=== PATIENT | female | born 1940 | race Caucasian/White ===

== ENCOUNTER → 2022-02-18 13:04 | Outpatient (CLI) | payer MEDICARE, BC, SELFPAY ==
--- NOTE | 2022-02-18 | DI.CT.S_ITS ---
PROCEDURE: CT CHEST WO CON INDICATIONS: Pulmonary fibrosis, unspecified TECHNIQUE: Noncontrast 5 mm thick sections acquired from the pulmonary apices to the posterior costophrenic angles. 1 mm lung window, 5 mm thick coronal and sagittal and 7 mm axial MIP reformats were then acquired. For radiation dose reduction, the following was used: automated exposure control, adjustment of mA and/or kV according to patient size. COMPARISON: None. FINDINGS: Image quality: Excellent. Lungs and pleura: Pulmonary hyperinflation as well as subpleural peripheral honeycombing involving both lungs is consistent with pulmonary fibrosis. Small underlying nodule in the left periphery of the left upper lobe measures 1 cm no on image 3/135. Bilateral apically scarring is greater on the right. Mediastinum: Heart size is normal. No pericardial effusion. No mediastinal adenopathy by size criteria. Thoracic aorta and central pulmonary arteries are normal in size. Esophagus is normal in caliber. Moderate hiatal hernia. Bones and chest wall: No suspicious bony lesions. No vertebral body compression fractures. No axillary or supraclavicular adenopathy by size criteria. Thyroid gland unremarkable. Bilateral breast prosthesis with capsular rupture on the right . Abdomen: Visualized upper abdominal solid organs and bowel loops appear normal in the absence of contrast. IMPRESSION: 1. Peripheral pleural based honeycombing scattered throughout both lungs consistent with non-specific pulmonary fibrosis 2. Associated 1 cm nodule in the periphery of the left upper lobe. Consider 3 month follow-up to assess stability 3. Bilateral breast prosthesis with contained capsular rupture on the right Approved by: Ziggy Manriquez M.D. on 02/18/2022 at 15:51
== END ==
PROVIDERS: PCP Internal Medicine; Referring Provider Internal Medicine; Visit Provider Internal Medicine
DX: J84.10 Pulmonary fibrosis, unspecified (principal); R91.1 Solitary pulmonary nodule; T85.43XA Leakage of breast prosthesis and implant, initial encounter
CPT/HCPCS: 71250

== ENCOUNTER → 2023-04-09 10:34 | Outpatient (CLI) | payer MEDICARE, BC, SELFPAY ==
--- NOTE | 2023-04-09 10:38 | DI.CT.S_ITS ---
PROCEDURE: CT CHEST HIGH RESOLUTION INDICATIONS: Interstitial pulmonary disease, unspecified TECHNIQUE: Noncontrast 1.0 and 5.0 mm thick contiguous axial sections from the pulmonary apex to the posterior costophrenic angles, with 7 mm thick coronal and sagittal MIP reformats. 1 mm thick dynamic expiratory images acquired through the upper, mid, and lower lungs. 1.0 mm thick axial sections acquired from the ashish to the posterior costophrenic angles in the prone end-inspiration position. For radiation dose reduction, the following was used: automated exposure control, adjustment of mA and/or kV according to patient size. COMPARISON: [facility], CT, CT CHEST WO CON, 02/18/2022, 13:11. FINDINGS: Image quality: Excellent. Lungs: Bilateral peripheral reticular thickening which persists on the prone sequence. This is similar to 02/18/2022. Slight increased opacity in the left upper lobe juxta fissural. There is honeycombing. Bilateral pleural apical scarring. Diffuse interlobular septal thickening with a basilar predominance. Mild bronchiectasis. A few areas of distal mucus airway plugging. Central airways are clear. Patchy areas of air trapping. -Left apical nodule measuring 0.4 cm, (3/42), unchanged. -Left upper lobe lateral nodular opacity, (3/143), increased and more consolidative appearing. Pleura: No pleural effusions or pneumothorax. Mediastinum: Heart size is normal. No pericardial effusion. 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 Esophagus is normal in caliber. Small hiatal hernia. Bones and chest wall: No suspicious bony lesions. No vertebral body compression fractures. Bilateral breast implants. The right implant demonstrates at least intracapsular rupture. Abdomen: Visualized upper abdominal solid organs and bowel loops appear normal. 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 Moderate severity. Overall findings are similar compared to January 2022. Previously seen left upper lobe pulmonary nodule is obscured by mild increased opacity. Dictated by: Demar Pulido M.D. on 04/09/2023 at 12:16 Approved by: Demar Pulido M.D. on 04/09/2023 at 12:30
== END ==
PROVIDERS: PCP Internal Medicine; Referring Provider Internal Medicine; Visit Provider Internal Medicine
DX: J84.9 Interstitial pulmonary disease, unspecified (principal); I71.21 Aneurysm of the ascending aorta, without rupture; R91.8 Other nonspecific abnormal finding of lung field; K44.9 Diaphragmatic hernia without obstruction or gangrene; T85.43XA Leakage of breast prosthesis and implant, initial encounter
CPT/HCPCS: 71250

== ENCOUNTER 2023-07-15 13:50 | Observation (INO) | payer MEDICARE, OTHER, SELFPAY ==
[2023-07-15] VITALS (10 sets, daily range): BP systolic 133–171; BP diastolic 72–101; PULSE 73–80; RESP 13–24; TEMP 36.6–37.1; O2SAT 96–100; BMI 22.1; BMI 22.4
--- NOTE | 2023-07-15 14:27 | DI.CT.S_ITS ---
PROCEDURE: CT STROKE INDICATIONS: Vision loss TECHNIQUE: Noncontrast 4.5 mm thick angled axial sections acquired from the foramen magnum to the vertex, with coronal reformats. For radiation dose reduction, the following was used: automated exposure control, adjustment of mA and/or kV according to patient size. COMPARISON: [facility], CT, CT ANGIO HEAD AND NECK, 07/15/2023, 14:30. FINDINGS: Image quality: Excellent. CSF spaces: Basal cisterns are patent. No extra-axial fluid collections. The ventricles are symmetric in size and shape. Brain: No intracranial bleeds or masses. There is cerebral volume loss for age, with resultant ventricular and sulcal prominence. There are periventricular and deep white matter chronic small vessel ischemic changes. There is intracranial internal carotid artery atherosclerosis. Skull and face: Calvarium and visualized facial bones appear intact, without suspicious lesions. Sinuses: Visualized sinuses and mastoids are clear. IMPRESSION: 1. No acute intracranial abnormality. 2. Cerebral volume loss and small vessel ischemic changes. Findings were discussed with Dr. Morales in the emergency department at 14:55 This study fulfills neurological imaging criteria for inclusion or exclusion of acute stroke therapies based on available published neurological guidelines. Dictated by: Angel Brown M.D. on 07/15/2023 at 14:46 Approved by: Angel Brown M.D. on 07/15/2023 at 14:56
--- NOTE | 2023-07-15 14:28 | DI.CT.S_ITS ---
PROCEDURE: CT ANGIO HEAD AND NECK INDICATIONS: Vision loss TECHNIQUE: After the administration of intravenous contrast, 1 mm thick sections acquired from the aortic arch through the [place] of [place]. 3-dimensional eldygzy-ykbyjkekv-bosqlxgndr (MIP) and/or volume rendering reformats were acquired of the central intracranial vasculature and neck separately. For radiation dose reduction, the following was used: automated exposure control, adjustment of mA and/or kV according to patient size. COMPARISON: [facility], CT, CT CHEST HIGH RESOLUTION, 04/09/2023, 10:48. FINDINGS: Image quality: Diagnostic. BRAIN: CSF spaces: Ventricles are normal in size and shape. Basal cisterns are patent. No extra-axial fluid collections. Brain: No significant abnormality of the brain can be seen. Skull and face: Calvarium and facial bones appear intact, without suspicious lesions. Orbits appear normal. Sinuses: Sinuses and mastoids are clear. HEAD CT ANGIOGRAPHY: Anterior circulation: Intracranial internal carotid arteries are normal in size and flow. The flow within the paired anterior cerebral arteries is normal and symmetric. The flow within the middle cerebral arteries is normal and symmetric. The anterior communicating artery is seen. No aneurysms are seen. Posterior circulation: Visualized portions of the vertebral arteries demonstrate normal caliber, and join to form a normal appearing basilar artery. Flow within the posterior cerebral arteries is normal and symmetric. No aneurysms are seen. NECK CT ANGIOGRAPHY: Carotid system: The great vessels demonstrate a conventional anatomy as they arise from the aortic arch. The origins of the common carotid arteries appear patent. The left common carotid artery has atherosclerotic calcifications which do not cause stenosis. The common carotid arteries demonstrate normal caliber and courses. The bifurcation regions are both widely patent. The internal carotid arteries demonstrate normal calibers and courses. Posterior circulation: The origins of the vertebral arteries both appear widely patent. The more superior extracranial portions of both vertebral arteries also demonstrate normal courses and calibers. They join to form a normal appearing basilar artery. Soft tissues: Visualized neck soft tissues demonstrate no suspicious abnormalities. The superior lungs demonstrate peripheral reticular thickening and scarring, similar to prior CT on 04/09/2023. Bones: No suspicious bony lesions. Visualized cervical spine appears normally aligned. IMPRESSION: CT angiogram of the head and neck show no aneurysm, dissection, or stenosis. Any quantitative measurements of stenosis were performed using NASCET criteria. Dictated by: Angel Brown M.D. on 07/15/2023 at 14:56 Approved by: Angel Brown M.D. on 07/15/2023 at 14:59
--- NOTE | 2023-07-15 14:31 | ED_ITS ---
HPI - Neuro Symptoms/Deficit General Chief Complaint: Neuro Symptoms/Deficit Stated Complaint: eye DR merari sudden blurring/ HX TIA Time Seen by Provider: 07/15/23 14:12 Source: patient Mode of arrival: Ambulatory History of Present Illness HPI Narrative: Patient here with complaints at 1:00 a.m. this afternoon had sudden onset of vision loss in both eyes the upper half of her vision. It lasted for 15 minutes and then it resolved. No other complaints. No headache. No numbness tingling or weakness. No slurred speech or facial droop. Patient has no symptoms now. She did call the ophthalmology office and was instructed to come here. She has appointment September with Dr. Asher, it isn't new office appointment. She states she had made the appointment just to get her eyes checked before today. This was a scheduled appointment. Fast exam is negative Patient states in 2019 she had blurry vision for a day. The following day she had a TIA with left arm weakness that resolved. This occurred when she was in [place] On Anticoagulants: No Related Data Home Medications Medication Instructions Recorded Confirmed acetaminophen 325 mg capsule 325 mg PO Q4-6H PRN Pain (Scale 08/18/21 07/15/23 (Tylenol) Score 1-3) aspirin 81 mg chewable tablet 81 mg PO DAILY 08/18/21 07/15/23 atorvastatin 40 mg tablet 40 mg PO BEDTIME 08/18/21 07/15/23 Previous Rx's Medication Instructions Recorded clopidogrel 75 mg tablet 75 mg PO DAILY #21 tabs 07/16/23 Allergies Allergy/AdvReac Type Severity Reaction Status Date / Time No Known Drug Allergies Allergy Verified 07/15/23 14:01 Review of Systems Review of Systems Narrative: GENERAL: negative chills, fatigue, malaise, fever, sweats. HEENT: negative sinus pain, ear pain, sore throat RESPIRATORY: negative dyspnea, cough CARDIOVASCULAR: negative chest pain, palpitations GASTROINTESTINAL: negative nausea, vomiting, abdominal pain : negative dysuria, frequency, hematuria MUSCULOSKELETAL: negative muscle or bony pain SKIN: negative rash, skin lesions NEUROLOGIC: negative weakness, numbness, positive vision loss ROS Unobtainable: All systems reviewed & are unremarkable except as noted in HPI and below Hematologic/Lymphatic On Anticoagulants: No Patient History Social History household members: spouse Smoking Status: Never smoker alcohol intake: current Smoking Status: Never smoker alcohol intake frequency: 0-2 drinks per day Substance Use Type: does not use Exam Narrative Exam Narrative: GENERAL: in no distress, not toxic not dyspneic HEAD: Normocephalic. EYES: Pupils equal round, peripheral do intact bilaterally, isolate each eye. Patient denies any double vision or blurry vision at this time. No papilledema. No photophobia. EOMI, denies any visual field loss/blindness ENT: Mucous membranes moist. NECK: Trachea midline. CARDIOVASCULAR: Regular rate and rhythm RESPIRATORY: Clear to auscultation. Breath sounds equal bilaterally. No wheezes, rales, or rhonchi. GASTROINTESTINAL: Abdomen soft, non-tender EXTREMITIES: No gross deformities. BACK: No flank tenderness. NEURO: AOx4. Fast exam is negative. Clear speech no facial droop light touch intact bilateral face hands and legs. Strong equal light bulb replacer. Raises each leg individually. Finger-nose intact bilaterally. SKIN: Warm and dry PSYCH: Not anxious, is cooperative Initial Vital Signs Initial Vital Signs: Vital Signs Pulse Rate 77 07/15/23 13:55 Blood Pressure 161/74 H 07/15/23 13:55 Pulse Oximetry 96 07/15/23 13:55 Oxygen Delivery Method Room Air 07/15/23 13:55 Course Orders Ordered: Discontinued Medications Acetaminophen (Acetaminophen 325 Mg Tablet) 650 mg PO Q6H PRN PRN Reason: Fever/Mild Pain (1-3) Aspirin (Aspirin Ec 81 Mg Tablet) 81 mg PO DAILY [facility] Last Admin: 07/16/23 08:31 Dose: 81 mg Documented By: JUAN JOSE Admin: 07/15/23 17:43 Dose: 81 mg Documented By: YG Atorvastatin Calcium (Atorvastatin 20 Mg Tablet) 40 mg PO BEDTIME [facility] Atorvastatin Calcium (Atorvastatin 20 Mg Tablet) 80 mg PO BEDTIME [facility] Last Admin: 07/15/23 21:16 Dose: 80 mg Documented By: BRAIN Clopidogrel Bisulfate (Clopidogrel 75 Mg Tablet) 75 mg PO DAILY [facility] Last Admin: 07/16/23 12:02 Dose: 75 mg Documented By: MM Enoxaparin Sodium (Enoxaparin 40 Mg/0.4 Ml Syringe) 40 mg SUBCUT DAILY [facility] Last Admin: 07/16/23 08:31 Dose: 40 mg Documented By: JUAN JOSE Admin: 07/15/23 17:42 Dose: Not Given Documented By: SB Sodium Chloride (Normal Saline 0.9%) 1,000 mls @ 1,000 mls/hr IV BOLUS ONE Stop: 07/15/23 15:26 Last Admin: 07/15/23 15:07 Dose: 1,000 mls/hr Documented By: STORM Labetalol HCl (Labetalol 20 Mg/4 Ml Syringe) 10 mg IV Q5MIN PRN PRN Reason: SBP >220 or DBP >110 Levothyroxine Sodium (Levothyroxine 50 Mcg Tablet) 50 mcg PO 0600 [facility] Last Admin: 07/16/23 05:04 Dose: Not Given Documented By: SH Loratadine (Loratadine 10 Mg Tablet) 10 mg PO DAILY [facility] Last Admin: 07/16/23 08:31 Dose: Not Given Documented By: MM Naloxone HCl (Naloxone 0.4 Mg/Ml Vial) 0.2 mg IV Q2MIN PRN PRN Reason: Opiate Reversal Ondansetron HCl (Ondansetron 4 Mg/2 Ml Inj) 4 mg IV Q8HR PRN PRN Reason: Nausea And Vomiting Vital Signs Vital signs: Vital Signs - 8 hr 07/15/23 13:59 Temperature 98.7 F Pulse Rate 73 Respiratory Rate 16 Blood Pressure 161/74 H Pulse Oximetry 98 Oxygen Delivery Method Room Air MDM - Neuro Symptoms/Deficit Lab Data 07/15/23 14:08 07/15/23 14:08 Labs: Lab Results 07/15/23 07/15/23 07/15/23 Range/Units 14:08 14:08 14:08 WBC 6.7 (4.5-11.0) X10^3/uL RBC 4.44 (4.0-5.2) X10^6/uL Hgb 13.5 (12.0-16.0) g/dL Hct 39.9 (36-46) % MCV 89.9 (80-100) fL MCH 30.4 (26-34) PG MCHC 33.8 (30-36) % RDW 13.6 (11.6-14.8) % Plt Count 224 (150-400) X10^3/uL Neut % (Auto) 71.5 (50-75) % Lymph % (Auto) 16.5 L (25-40) % [place] % (Auto) 7.7 (3-14) % Eos % (Auto) 3.9 (2-4) % Baso % (Auto) 0.4 (0-2) % Neut # (Auto) 4800 (6699-3522) /uL Lymph # (Auto) 1100 (7931-3728) /uL [place] # (Auto) 500 (0-900) /uL Eos # (Auto) 300 (0-450) /uL Baso # (Auto) 0 (0-100) /uL PT 12.3 (10.1-12.7) SECONDS INR 1.1 (0.9-1.3) APTT 32 (26-36) SECONDS Sodium 139 (137-145) mmol/L Potassium 4.1 (3.4-5.1) mmol/L Chloride 103 (98-107) mmol/L Carbon Dioxide 28 (22-32) mmol/L BUN 15 (7-17) mg/dL Creatinine 0.69 (0.52-1.04) mg/dL Estimated GFR > 60 (>60) mL/min BUN/Creatinine Ratio 21.7 (6-22) Glucose 101 (80-110) mg/dL Hemoglobin A1c (4.0-6.0) % Calcium 9.1 (8.4-10.2) mg/dL Total Bilirubin 0.4 (0.2-1.3) mg/dL AST 30 (14-36) IU/L ALT 25 (<35) IU/L Alkaline Phosphatase 46 (38-126) U/L Total Creatine Kinase 242 H (30-135) U/L Troponin I < 0.012 (0.01-0.034) ng/mL Total Protein 7.2 (6.3-8.2) g/dL Albumin 4.2 (3.5-5.0) g/dL Globulin 3.0 (1.7-4.1) g/dL Albumin/Globulin Ratio 1.4 (1.0-2.8) Triglycerides (35-150) mg/dL Cholesterol (140-199) mg/dL LDL Cholesterol, Calc (<100) mg/dL HDL Cholesterol (40-60) mg/dL 07/15/23 07/15/23 Range/Units 14:08 14:08 WBC (4.5-11.0) X10^3/uL RBC (4.0-5.2) X10^6/uL Hgb (12.0-16.0) g/dL Hct (36-46) % MCV (80-100) fL MCH (26-34) PG MCHC (30-36) % RDW (11.6-14.8) % Plt Count (150-400) X10^3/uL Neut % (Auto) (50-75) % Lymph % (Auto) (25-40) % [place] % (Auto) (3-14) % Eos % (Auto) (2-4) % Baso % (Auto) (0-2) % Neut # (Auto) (9304-4638) /uL Lymph # (Auto) (4149-2761) /uL [place] # (Auto) (0-900) /uL Eos # (Auto) (0-450) /uL Baso # (Auto) (0-100) /uL PT (10.1-12.7) SECONDS INR (0.9-1.3) APTT (26-36) SECONDS Sodium (137-145) mmol/L Potassium (3.4-5.1) mmol/L Chloride (98-107) mmol/L Carbon Dioxide (22-32) mmol/L BUN (7-17) mg/dL Creatinine (0.52-1.04) mg/dL Estimated GFR (>60) mL/min BUN/Creatinine Ratio (6-22) Glucose (80-110) mg/dL Hemoglobin A1c 5.3 (4.0-6.0) % Calcium (8.4-10.2) mg/dL Total Bilirubin (0.2-1.3) mg/dL AST (14-36) IU/L ALT (<35) IU/L Alkaline Phosphatase (38-126) U/L Total Creatine Kinase (30-135) U/L Troponin I (0.01-0.034) ng/mL Total Protein (6.3-8.2) g/dL Albumin (3.5-5.0) g/dL Globulin (1.7-4.1) g/dL Albumin/Globulin Ratio (1.0-2.8) Triglycerides 77 (35-150) mg/dL Cholesterol 139 L (140-199) mg/dL LDL Cholesterol, Calc 42 (<100) mg/dL HDL Cholesterol 82 H (40-60) mg/dL Imaging Data CT scan - head: Radiologist's Impression: [address] [address] [address] Scan Report Signed Patient: Zayra Escamilla MR#: [id number] : 1940 Acct:[id number] Age/Sex: 82 / F Date of Service: 07/15/23 Loc: ED Accession Number: [id number] ?? Procedure: CT Stroke Ordering Provider: Brenden Morales MD PROCEDURE:? CT STROKE ? INDICATIONS:? Vision loss ? TECHNIQUE:? Noncontrast 4.5 mm thick angled axial sections acquired from the foramen magnum to the vertex, with coronal reformats.? For radiation dose reduction, the following was used:? automated exposure control, adjustment of mA and/or kV according to patient size.? ? COMPARISON:? [facility], CT, CT ANGIO HEAD AND NECK, 07/15/2023, 14:30. ? FINDINGS:? Image quality:? Excellent.? ? CSF spaces:? Basal cisterns are patent.? No extra-axial fluid collections.? The ventricles are symmetric in size and shape.? ? Brain:? No intracranial bleeds or masses.? There is cerebral volume loss for age, with resultant ventricular and sulcal prominence.? There are periventricular and deep white matter chronic small vessel ischemic changes.? There is intracranial internal carotid artery atherosclerosis.? ? Skull and face:? Calvarium and visualized facial bones appear intact, without suspicious lesions.? ? Sinuses:? Visualized sinuses and mastoids are clear.? ? IMPRESSION:? 1. No acute intracranial abnormality. 2. Cerebral volume loss and small vessel ischemic changes.? Findings were discussed with Dr. Morales in the emergency department at 14:55? ? This study fulfills neurological imaging criteria for inclusion or exclusion of acute stroke therapies based on available published neurological guidelines.? ? ? Dictated by: Angel Brown M.D. on 07/15/2023 at 14:46 ? ? Approved by: Angel Brown M.D. on 07/15/2023 at 14:56 ? CTA - brain/neck: Radiologist's Impression: [address] [address] [address] Scan Report Signed Patient: Zayra Escamilla MR#: [id number] : 1940 Acct:[id number] Age/Sex: 82 / F Date of Service: 07/15/23 Loc: ED Accession Number: [id number] ?? Procedure: CT angio head and neck Ordering Provider: Brenden Morales MD PROCEDURE:? CT ANGIO HEAD AND NECK ? INDICATIONS:? Vision loss ? TECHNIQUE:? After the administration of intravenous contrast, 1 mm thick sections acquired from the aortic arch through the [place].? 3-dimensional zehwlan-aqdsmwzik-ppabslqjhg (MIP) and/or volume rendering reformats were acquired of the central intracranial vasculature and neck separately. For radiation dose reduction, the following was used:? automated exposure control, adjustment of mA and/or kV according to patient size.? ? COMPARISON:? [facility], CT, CT CHEST HIGH RESOLUTION, 04/09/2023, 10:48. ? FINDINGS:? Image quality:? Diagnostic.? ? BRAIN:? CSF spaces:? Ventricles are normal in size and shape.? Basal cisterns are patent.? No extra-axial fluid collections.? ? Brain:? No significant abnormality of the brain can be seen. ? ? ? Skull and face:? Calvarium and facial bones appear intact, without suspicious lesions.? Orbits appear normal.? ? Sinuses:? Sinuses and mastoids are clear.? ? HEAD CT ANGIOGRAPHY:? Anterior circulation:? Intracranial internal carotid arteries are normal in size and flow.? The flow within the paired anterior cerebral arteries is normal and symmetric.? The flow within the middle cerebral arteries is normal and symmetric.? The anterior communicating artery is seen.? No aneurysms are seen.? ? Posterior circulation:? Visualized portions of the vertebral arteries demonstr ate normal caliber, and join to form a normal appearing basilar artery.? Flow within the posterior cerebral arteries is normal and symmetric.? No aneurysms are seen.? ? NECK CT ANGIOGRAPHY:? Carotid system:? The great vessels demonstrate a conventional anatomy as they arise from the aortic arch.? The origins of the common carotid arteries appear patent.? The left common carotid artery has atherosclerotic calcifications which do not cause stenosis.? The common carotid arteries demonstrate normal caliber and courses.? The bifurcation regions are both widely patent.? The internal carotid arteries demonstrate normal calibers and courses.? ? Posterior circulation:? The origins of the vertebral arteries both appear widely patent.? The more superior extracranial portions of both vertebral arteries also demonstrate normal courses and calibers.? They join to form a normal appearing basilar artery.? ? Soft tissues:? Visualized neck soft tissues demonstrate no suspicious abnormalities.? The superior lungs demonstrate peripheral reticular thickening and scarring, similar to prior CT on 04/09/2023. ? Bones:? No suspicious bony lesions.? Visualized cervical spine appears normally aligned.? IMPRESSION:? CT angiogram of the head and neck show no aneurysm, dissection, or stenosis. ? Any quantitative measurements of stenosis were performed using NASCET criteria.? ? ? Dictated by: Angel Brown M.D. on 07/15/2023 at 14:56 ? ? Approved by: Angel Brown M.D. on 07/15/2023 at 14:59 ? MDM Narrative Medical decision making narrative: Patient here with complaints at 1:00 a.m. this afternoon had sudden o nset of vision loss in both eyes the upper half of her vision. It lasted for 15 minutes and then it resolved. No other complaints. No headache. No numbness tingling or weakness. No slurred speech or facial droop. Patient has no symptoms now. She did call the ophthalmology office and was instructed to come here. She has appointment September with Dr. Asher, it isn't new office appointment. She states she had made the appointment just to get her eyes checked before today. This was a scheduled appointment. Fast exam is negative. Patient states in 2019 she had blurry vision for a day. The following day she had a TIA with left arm weakness that resolved. This occurred when she was in [place] After history and exam code stroke activated. CT head CT angiogram head and neck EKG troponin CBC CMP normal saline MDM CC: Vision loss Complicating co-morbidities: History of TIA Data collected from: Patient and Medical records reviewed: No recent visit for this complaint Differential considered: Includes but not limited to retinal detachment TIA stroke retinal detachment, arterial/venous occlusion of the retina Exam documented above, pertinent findings include: No blurry vision or double vision or vision loss at this time Lab Test results independently reviewed as above. Pertinent findings: WBC 6.7 hemoglobin 13.5 sodium 139 potassium 4.1 BUN 15 creatinine 0.69 glucose 101 Independently reviewed EKG normal sinus rhythm rate [address] elevation or de pression Imaging studies independently reviewed: CT head CT angiogram head and neck no acute finding Consultations: 2:53 p.m.. Radiology provider called, negative CT head negative CT angiogram head and neck 3:[address] Deleon, hospitalist, he will see patient for admission Treatments: Normal saline Re-evaluations: 3:15 p.m.. Reviewed results with patient. At this time it is reassuring. However TIA is possible. Agrees for admission for observation. Awaiting for MRI Discussion: Appropriate for admission. Patient had similar event for TIA 3 years ago with vision changes and then left arm weakness. No symptoms at this time. Patient and agree for admission. Reviewed with hospitalist agree for admit. No neurology consult at this time as symptoms have resolved. Diagnosis: TIA Discharge Plan Departure Patient Disposition: Admitted as Observation Clinical Impression: Transient cerebral ischemia Admit Date/Time: 07/15/23 15:22 Admit Provider: Jhonny Deleon
[2023-07-15 14:40] LABS: Add Manual Diff / Slide Review NO; Basophils Absolute Auto 0 /uL (0-100); Basophils Percent Auto 0.4 % (0-2); Eosinophils Absolute Auto 300 /uL (0-450); Eosinophils Percent Auto 3.9 % (2-4); Hematocrit 39.9 % (36-46); Hemoglobin 13.5 g/dL (12.0-16.0); Lymphocytes Absolute Auto 1100 /uL (1100-4500); Lymphocytes Percent Auto 16.5 % (25-40); Mean Corpuscular HGB Conc 33.8 % (30-36); Mean Corpuscular Hemoglobin 30.4 PG (26-34); Mean Corpuscular Volume 89.9 fL (80-100); Monocytes Absolute Auto 500 /uL (0-900); Monocytes Percent Auto 7.7 % (3-14); Neutrophils Absolute Auto 4800 /uL (1500-7000); Neutrophils Percent Auto 71.5 % (50-75); Platelet Count 224 X10^3/uL (150-400); Red Blood Cell Count 4.44 X10^6/uL (4.0-5.2); Red Cell Distribution Width 13.6 % (11.6-14.8); White Blood Cell Count 6.7 X10^3/uL (4.5-11.0)
[2023-07-15 14:44] LABS: INR 1.1 (0.9-1.3); Prothrombin Time 12.3 SECONDS (10.1-12.7)
[2023-07-15 14:47] LABS: PTT Partial Thromboplastin Tim 32 SECONDS (26-36)
[2023-07-15 14:48] LABS: Alanine Aminotransferase 25 IU/L (<35); Albumin 4.2 g/dL (3.5-5.0); Albumin Globulin Ratio 1.4 (1.0-2.8); Alkaline Phosphatase 46 U/L (38-126); Aspartate Aminotransferase 30 IU/L (14-36); BUN Creatinine Ratio 21.7 (6-22); Bilirubin Total 0.4 mg/dL (0.2-1.3); Blood Urea Nitrogen 15 mg/dL (7-17); Calcium 9.1 mg/dL (8.4-10.2); Carbon Dioxide 28 mmol/L (22-32); Chloride 103 mmol/L (98-107); Creatine Kinase 242 U/L (30-135); Estimated Glomerular Filt Rate > 60 mL/min (>60); Glucose 101 mg/dL (80-110); HEMOLYSIS < 15 (0-50); Potassium 4.1 mmol/L (3.4-5.1); Sodium 139 mmol/L (137-145); Total Protein 7.2 g/dL (6.3-8.2)
[2023-07-15 15:00] LABS: Troponin I < 0.012 ng/mL (0.01-0.034)
[2023-07-15] MEDS: SODIUM CHLORIDE 0.9% 1,000 ML 1000 ML IV (15:07)
--- NOTE | 2023-07-15 15:13 | DI.MRI.S_ITS ---
PROCEDURE: MR HEAD/BRAIN WO CON INDICATIONS: Vision loss TECHNIQUE: Non-contrast axial T1 spin echo, axial T2 fast spin echo, sagittal and axial FLAIR, coronal T2 fast spin echo, axial gradient echo, axial diffusion and ADC through the brain. COMPARISON: None. FINDINGS: Image quality: Excellent. CSF spaces: Ventricles appear symmetric in size and shape. Basal cisterns are patent. No extra-axial fluid collections. Brain: No intracranial bleeds or mass effects. There is cerebral volume loss for age. There are periventricular and deep white matter chronic small vessel ischemic changes. Brainstem appears normal. Diffusion-weighted images show no acute ischemic insults. No chronic ischemic insults. Normal intravascular flow voids are present. Few rachel foci of susceptibility artifact within the right parenchyma, likely sequela of prior chronic hypertensive microhemorrhages. Skull and face: Calvarial bone marrow is normal in signal. Orbits are normal. Right lens replacement. Sinuses: Sinuses and mastoids are clear. IMPRESSION: 1. No acute or subacute infarct. No acute intracranial abnormalities. 2. Age-related global volume loss and chronic microvascular ischemic changes. Dictated by: Trey Moore M.D. on 07/15/2023 at 16:54 Approved by: Trey Moore M.D. on 07/15/2023 at 16:56
--- NOTE | 2023-07-15 15:46 | PC.NURSE ---
pt reports that her vision went blurry in both eyes while she was gathering brush from the cedar tree. states it only lasted a few minutes.
--- NOTE | 2023-07-15 15:52 | DI.ECHO.S_ITS ---
[facility]---------+ [facility] +---------+ : : [address] : : : : [id number] : : : : Phone: [phone] Echocardiogram Report + + :Name: ZULEIKA VANEGAS Study Date: 07/16/2023 Height: 66 in : :[facility] ReadingLocation: Weight: 137 lb : : Gender: Female BSA: 1.7 m2 : :: 1940 Age: 82 yrs BP: 171/92 mmHg: :Reason For Study: TIA : :Ordering Physician: TARIK, : :LETTY Moser Performed By: Johanne Bowen : :Referring: LETTY MONTANEZ : + + Interpretation Summary The left ventricle is normal in size. Left ventricular systolic function appears normal without focal wall motion abnormalities. The ejection fraction is estimated to be 60-65%. Diastolic parameters suggest a relaxation abnormality of the left ventricle, consistent with probable normal filling pressures. The right ventricle is normal in size and function. The right ventricular systolic pressure is estimated to be at least 46 mmHg based on an estimated right atrial pressure of 8 mm Hg. The left atrium is mildly dilated. The right atrium is mildly dilated. The aortic root is normal size. Moderate atherosclerotic plaque(s) in the descending aorta. Procedure: A two-dimensional transthoracic echocardiogram with color flow and Doppler was performed. The study quality was technically adequate. There is no prior echocardiogram noted for this patient. The patient was in sinus rhythm with heart rates between 79-90 bpm during the exam. Left Ventricle: The left ventricle is normal in size. Proximal septal thickening is noted. Left ventricular systolic function appears normal without focal wall motion abnormalities. The ejection fraction is estimated to be 60- 65%. Diastolic parameters suggest a relaxation abnormality of the left ventricle, consistent with probable normal filling pressures. Right Ventricle: The right ventricle is normal in size and function. Atria: The left atrium is mildly dilated. The right atrium is mildly dilated. There is no Doppler evidence for an interatrial shunt. Mitral Valve: The mitral valve leaflets appear mildly thickened, but open well. There is mild mitral regurgitation. Aortic Valve: The aortic valve is trileaflet. The aortic valve opens well. There is no aortic valve stenosis. There is trace aortic regurgitation. Tricuspid Valve: The tricuspid valve is normal in structure and function. There is mild tricuspid regurgitation. The right ventricular systolic pressure is estimated to be at least 46 mmHg based on an estimated right atrial pressure of 8 mm Hg. Pulmonic Valve: The pulmonic valve leaflets are thin and pliable; valve motion is normal. There is no pulmonic valvular regurgitation. Great Vessels: The aortic root is normal size. The ascending aorta is mildly enlarged. Moderate atherosclerotic plaque(s) in the descending aorta. The IVC is dilated (diameter is greater than 2.1 cm) yet it collapses greater than 50% with a sniff. This suggests a right atrial pressure of 8 mm Hg. Pericardium/ Pleura There is no pericardial effusion. There is no pleural effusion. MMode/2D Measurements & Calculations LVIDd: 4.2 cm LVOT diam: 2.0 cm LVIDs: 2.7 cm Ao root diam: 3.1 cm FS: 36.0 % asc Aorta Diam: 4.0 cm EPSS: 0.32 cm Ao Arch Diam (Prox Trans): 2.4 cm IVSd: 0.79 cm LVPWd: 0.73 cm LV posadas. diameter/BSA (cm/m^2): 2.5 LV sys. diameter/BSA (cm/m^2): 1.6 LA A2 area: 19.3 cm2 RA long axis: 6.0 cm LA A4 area: 20.6 cm2 RA area: 21.8 cm2 LA length (vol): 5.4 cm RA vol: 67.0 ml LA vol: 62.3 ml RA : 39.3 ml/m2 LA vol index: 36.6 ml/m2 IVC diam: 2.1 cm RVD1 (basal): 3.6 cm RVD2 (mid): 2.6 cm TAPSE: 2.6 cm Doppler Measurements & Calculations Ao V2 max: 148.8 cm/sec LVOT Max Surinder: 104.5 cm/sec Ao V2 mean: 108.8 cm/sec LV V1 max P.4 mmHg Ao max P.9 mmHg LV V1 VTI: 19.9 cm Ao mean P.3 mmHg ALYSSA(I,D): 2.1 cm2 Ao V2 VTI: 29.2 cm ALYSSA(V,D): 2.2 cm2 sev ratio: 0.68 ALYSSA indexed to BSA (cm^2/m^2): 1.3 MV E max surinder: 86.3 cm/sec TR max surinder: 308.0 cm/sec MV A max surinder: 119.0 cm/sec TR max P.9 mmHg MV E/A: 0.73 PA V2 max: 86.9 cm/sec Med Peak E' Surinder: 7.5 cm/sec PA V2 mean: 57.1 cm/sec E/E' med: 11.6 PA mean P.5 mmHg Lat Peak E' Surinder: 8.1 cm/sec PA pr(Accel): 41.7 mmHg E/E' lat: 10.7 E/e' average: 11.2 MV dec time: 0.20 sec SV(LVOT): 62.2 ml Reading Physician:03:39 PM
[2023-07-15] MEDS: ASPIRIN EC 81 MG TABLET PO (17:43)
[2023-07-15 17:54] LABS: Cholesterol 139 mg/dL (140-199); HDL Cholesterol 82 mg/dL (40-60); LDL Cholesterol Calculated 42 mg/dL (<100); Triglycerides 77 mg/dL (35-150)
[2023-07-15 17:56] LABS: Hemoglobin A1C% w Est Avg Glu 5.3 % (4.0-6.0)
--- NOTE | 2023-07-15 19:19 | PM.HP.1 ---
History of Present Illness History of Present Illness Date Patient Seen: 07/15/23 Chief complaint: eye DR merari sudden blurring/ HX TIA Narrative: Zayra Escamilla is an 82yo F with PMH of TIA versus CVA in 2019, seizure in 2004, pulmonary fibrosis and hypothyroidism who presents with sudden vision loss concerning for TIA. Patient states she had acute visual deficits of her upper half visual do bilaterally which lasted 15 minutes then resolved. She called her management trainee who recommended she come to the ED. She was supposed to have her eyes examined soon but they haven't been yet. She reports a previous instance in 2019 while living in [place] when she had vision loss of her left peripheral field and was she had a small stroke seen on MRI, although she called it a TIA. Has been on aspirin and statin since. She is no longer on seizure meds as she had one isolated seizure in 2004. She denies extremity weakness, facial droop, CP, SOB, headache, abd pain or diarrhea. [facility] Social History household members: none Smoking Status: Never smoker alcohol intake: current Meds Home Medications and Allergies Home Medications Medication Instructions Recorded Confirmed Type acetaminophen 325 mg capsule 325 mg PO Q4-6H PRN Pain (Scale 08/18/21 07/15/23 History (Tylenol) Score 1-3) aspirin 81 mg chewable tablet 81 mg PO DAILY 08/18/21 07/15/23 History atorvastatin 40 mg tablet 40 mg PO BEDTIME 08/18/21 07/15/23 History Allergies Allergy/AdvReac Type Severity Reaction Status Date / Time No Known Drug Allergies Allergy Verified 07/15/23 14:01 Review of Systems Review of Systems Narrative: All other systems reviewed with the patient and are negative unless otherwise stated. Exam Vital Signs (past 8 hours): - 07/15/23 13:59 07/15/23 13:55 07/15/23 13:55 Temperature 98.7 F Pulse Rate 73 77 Respiratory Rate 16 Blood Pressure 161/74 H 161/74 H Pulse Oximetry 98 96 Oxygen Delivery Method Room Air Room Air 07/15/23 14:00 07/15/23 14:08 07/15/23 14:08 Temperature Pulse Rate 75 76 Respiratory Rate 24 22 Blood Pressure 152/91 H Pulse Oximetry 100 99 Oxygen Delivery Method 07/15/23 14:39 07/15/23 14:40 07/15/23 15:10 Temperature Pulse Rate 80 79 79 Respiratory Rate 16 13 18 Blood Pressure Pulse Oximetry 98 Oxygen Delivery Method Room Air 07/15/23 15:10 07/15/23 15:30 07/15/23 15:30 Temperature Pulse Rate 76 Respiratory Rate 20 Blood Pressure 150/72 H 163/101 H Pulse Oximetry 98 Oxygen Delivery Method 07/15/23 16:04 07/15/23 16:04 Temperature Pulse Rate 78 Respiratory Rate 18 Blood Pressure 171/92 H Pulse Oximetry 98 Oxygen Delivery Method Room Air Oxygen Delivery Method Room Air Narrative Exam Narrative: GEN: no acute distress, appears younger than stated age HEENT: moist mucous membranes, PERRL NECK: trachea midline, no JVD CV: regular rate and rhythm, no murmurs PULM: clear bilaterally ABD: soft, nontender, nondistended, no organomegaly EXT: warm and well perfused with no edema NEURO: awake, alert, oriented, no focal deficits Objective Labs 07/15/23 14:08 07/15/23 14:08 Labs: Laboratory Results - last 24 hr 07/15/23 07/15/23 07/15/23 14:08 14:08 14:08 WBC 6.7 RBC 4.44 Hgb 13.5 Hct 39.9 MCV 89.9 MCH 30.4 MCHC 33.8 RDW 13.6 Plt Count 224 Neut % (Auto) 71.5 Lymph % (Auto) 16.5 L [place] % (Auto) 7.7 Eos % (Auto) 3.9 Baso % (Auto) 0.4 Neut # (Auto) 4800 Lymph # (Auto) 1100 [place] # (Auto) 500 Eos # (Auto) 300 Baso # (Auto) 0 PT 12.3 INR 1.1 APTT 32 Sodium 139 Potassium 4.1 Chloride 103 Carbon Dioxide 28 BUN 15 Creatinine 0.69 Estimated GFR > 60 BUN/Creatinine Ratio 21.7 Glucose 101 Hemoglobin A1c Calcium 9.1 Total Bilirubin 0.4 AST 30 ALT 25 Alkaline Phosphatase 46 Total Creatine Kinase 242 H Troponin I < 0.012 Total Protein 7.2 Albumin 4.2 Globulin 3.0 Albumin/Globulin Ratio 1.4 Triglycerides Cholesterol LDL Cholesterol, Calc HDL Cholesterol 07/15/23 07/15/23 14:08 14:08 WBC RBC Hgb Hct MCV MCH MCHC RDW Plt Count Neut % (Auto) Lymph % (Auto) Free[place] % (Auto) Eos % (Auto) Baso % (Auto) Neut # (Auto) Lymph # (Auto) Free[place] # (Auto) Eos # (Auto) Baso # (Auto) PT INR APTT Sodium Potassium Chloride Carbon Dioxide BUN Creatinine Estimated GFR BUN/Creatinine Ratio Glucose Hemoglobin A1c 5.3 Calcium Total Bilirubin AST ALT Alkaline Phosphatase Total Creatine Kinase Troponin I Total Protein Albumin Globulin Albumin/Globulin Ratio Triglycerides 77 Cholesterol 139 L LDL Cholesterol, Calc 42 HDL Cholesterol 82 H Assessment & Plan Assessment & Plan narrative: # likely TIA, in the setting of previous TIA in 2019 -presented with bilateral upper field deficits which lasted 15 minutes then resolved -MRI brain normal -echo ordered -continue baby aspirin -continue statin -LDL 42 -A1c 5.3% -tele -should have eyes examined as outpatient by eye doctor # pulmonary fibrosis -followed by pulmonology, not on oxygen # hypothyroidism -continue home Synthroid -check TSH Code status is DNR. DVT prophylaxis with Lovenox. Proxy is daughter Marii. I have reviewed home meds and used all available resources to reconcile the home meds. Case discussed with ED physician/APC and patient will be admitted to the hospitalist service for further workup and management. This patient will be admitted as observation and will require less than 2 midnights of hospital time to treat TIA. Quality VTE Deep Vein Thrombosis/Pulmonary Embolism Present on Admission: No
[2023-07-15] MEDS: ATORVASTATIN 20 MG TABLET 80 MG PO (21:16)
[2023-07-16] VITALS: PULSE 71
[2023-07-16 04:00] VITALS: BP 132/77; PULSE 72; RESP 15; TEMP 36.1; O2SAT 98
[2023-07-16 07:28] LABS: TSH w/ Reflex to FT4 4.42 uIU/mL (0.47-4.68)
[2023-07-16 08:00] VITALS: BP 146/83; PULSE 75; RESP 16; O2SAT 97
[2023-07-16] MEDS: ENOXAPARIN 40 MG/0.4 ML SYRINGE SUBCUT (08:31)
[2023-07-16] MEDS: ASPIRIN EC 81 MG TABLET PO (08:31)
--- NOTE | 2023-07-16 11:01 | CM.DANOTE ---
DCP Assessment Note Patient is a 82yo F here for blurry vision and potential TIA. [facility] and [facility] reviewed EMR. From staff development educator, doing well, wants to go home, and waiting on echo. From provider, likely to d/c today. RIBBON WEAVER entered room and introduced self and role. Patient accompanied by spouse at bed side (Luis [phone]). Patient appeared A/Ox4. Paitent lives with spouse and is normally A/I at baseline. Does not drive but either spouse or daughter Marii ([phone]) transport for her. Plan: no needs identified from this team at this time. Home when medically stable, potentially today. Transport with family in POV. CM team will continue to follow as needed. FAY Kelly Discharge Planning/Care Management CM Discharge Assessment Start: 07/16/23 11:00 Freq: Status: Active Protocol: Document 07/16/23 11:00 (Rec: 07/16/23 11:01 [id number]) Discharge Planning Assessment Assigned Vegetable Worker FAY Carrasco DPOA/Assigned Designee Name Luis (spouse) Contact Information [phone] Advance Directives? No History Provided By Patient,Medical Record Prior Living Arrangements House Household Members spouse Type of transporation used prior to Relies on Others admit Comment spouse and daughter transport Independent with ADL's Yes Is patient alert and oriented? Yes Discharge Plan Home Transportation Arrangement daughter or spouse in POV Whiteboard Updated in Patient Room with Yes name and ext. # of Vegetable Worker Review Status In Process Next Review Type Continued Stay Review
[2023-07-16 12:00] VITALS: BP 141/83; PULSE 78; RESP 16; O2SAT 94
[2023-07-16] MEDS: CLOPIDOGREL 75 MG TABLET PO (12:02)
--- NOTE | 2023-07-17 13:23 | P.DS_ITS ---
History of Present Illness History of Present Illness Date Patient Seen: 07/15/23 Chief complaint: eye DR sent sudden blurring/ HX TIA Narrative: Per admitting provider: Zayra Escamilla is an 82yo F with PMH of TIA versus CVA in 2019, seizure in 2004, pulmonary fibrosis and hypothyroidism who presents with sudden vision loss concerning for TIA. Patient states she had acute visual deficits of her upper half visual do bilaterally which lasted 15 minutes then resolved. She called her cap cutter who recommended she come to the ED. She was supposed to have her eyes examined soon but they haven't been yet. She reports a previous instance in 2019 while living in [place] when she had vision loss of her left peripheral field and was she had a small stroke seen on MRI, although she called it a TIA. Has been on aspirin and statin since. She is no longer on seizure meds as she had one isolated seizure in 2004. She denies extremity weakness, facial droop, CP, SOB, headache, abd pain or diarrhea. Discharge Providers Provider Date of admission: 07/15/23 15:22 Discharge Date: 07/16/23 Primary care physician: Lisbet Newman MD Discharge provider: Darwin Ag MD Summary Hospital Course Discharge Diagnosis: 1. Transient vision loss, possible TIA 2. Pulmonary fibrosis 3. Hypothyroidism Hospital Course: Ms. Escamilla presented to the hospital with transient vision loss. This is similar to a previous episode for which she was diagnosed with a TIA. She was already on aspirin prior to this admission. She had an MRI negative for stroke and an ECHO with no evidence of PFO. CTA head/neck with no significant stenosis. She may have had another TIA so she was prescribed three weeks of plavix to take dual antiplatelet therapy for a short period of time to reduce risk of stroke. She should follow up with her PCP to discuss returning back to antiplatelet monotherapy. In addition a request was made to expedite her ophtho referral so that she could be seen soon. She should consider having a repeat Holter monitor due to intermittent episodes of tachycardia that she has noticed at home. Exam Vital Signs (past 8 hours): Oxygen Delivery Method Room Air Oxygen Flow Rate 0 Narrative Exam Narrative: GEN: no acute distress CV: regular rate and rhythm, no murmurs PULM: clear bilaterally ABD: soft, nontender, nondistended, no organomegaly Objective Labs 07/15/23 14:08 07/15/23 14:08 [facility] Social History household members: spouse Smoking Status: Never smoker alcohol intake: current Discharge Plan Discharge Plan Patient Disposition: Home Provider Discharge Comment: Ms. Escamilla came to the hospital with vision issues. They improved. She may have had a TIA so she is given a prescription for plavix for three weeks. She should follow up with ophthalmology to make sure this is not an eye issue though. She should follow up with her PCP to get a Holter monit or. Discharge orders & Medications Prescriptions: New clopidogrel 75 mg tablet 75 mg PO DAILY Qty: 21 0RF Continued aspirin 81 mg tablet,chewable 81 mg PO DAILY atorvastatin 40 mg tablet 40 mg PO BEDTIME acetaminophen [Tylenol] 325 mg capsule 325 mg PO Q4-6H PRN (Reason: Pain (Scale Score 1-3)) Medication counseling provided by Pharmacist: Yes Follow up/Referrals: Irina Asher MD [Physician] - 2 Weeks (*Dr Jenkins office has been notified & will call you with a sooner appointment date & time was admitted to the hospital with transient vision loss and workup for CVA showed no stroke) Lisbet Newman MD [Primary Care Provider] - 07/20/23 11:00 am ( Appt:07/20 @ 11:[address] candelario please arrive 15 min prior to your scheduled appointment time possible tia, transient vision symptoms, consider outpatient holter monitor) Diet/Activity/Treatments Diet: Regular Visit Report/Discharge Packet Instructions: Clopidogrel Stand Alone Forms: Patient Portal/API, Stroke Signs & Symptoms Discharge Data Primary Care Provider: Lisbet Newman Attending Provider: Jhonny Deleon Admit Date/Time: 07/15/23 15:22 Discharges patient from system. Discharge Date/Time: 07/16/23 16:00 Quality VTE Deep Vein Thrombosis/Pulmonary Embolism Present on Admission: No
== END 2023-07-16 16:00 | disposition home or self-care (01) ==
LOC: ED 14:52 → AC 15:23
PROVIDERS: Admitting Provider Student in an Organized Health Care Education/Training Program; Emergency Provider Emergency Medicine; PCP Internal Medicine; Referring Provider Emergency Medicine; Visit Provider Student in an Organized Health Care Education/Training Program
DX: H53.9 Unspecified visual disturbance (principal); Z86.73 Personal history of transient ischemic attack (TIA), and cerebral infarction without residual deficits; J84.10 Pulmonary fibrosis, unspecified; E03.9 Hypothyroidism, unspecified
CPT/HCPCS: 36415; 70450; 70496; 70498; 70551; 80053; 80061; 82550; 83036; 84443; 84484; 85025; 85610; 85730; 93005; 93010; 93306; 96372; 99284; 99285; G0378; J1650; Q9967

== ENCOUNTER → 2023-09-08 11:10 | Outpatient (CLI) | payer MEDICARE, OTHER, SELFPAY ==
[2023-07-15 16:42] VITALS: BMI 22.4
--- NOTE | 2023-09-08 11:11 | DI.RAD.S_ITS ---
Bone Density Report Name: ZULEIKA VANEGAS Age: 83 Sex: Female Ethnicity: White Date of : 1940 Indication: postmenopausal; screening for osteoporosis; Referring Provider: NICKY SOLOMON Study: Bone densitometry was performed. Exam Date: September 08, 2023 Accession number: [id number] Bone Density: Region BMD T-score Z-score Classification AP Spine(L2, L3, L4) 0.724 -3.2 -0.4 Osteoporosis Femoral Neck (Left) 0.577 -2.5 -0.1 Osteoporosis Total Hip (Left) 0.658 -2.3 -0.2 Osteopenia Femoral Neck (Right) 0.617 -2.1 0.3 Osteopenia Total Hip (Right) 0.642 -2.5 -0.3 Osteoporosis Total Hip Mean 0.650 -2.4 -0.3 Osteopenia World Health Organization criteria for BMD impression classify patients as: Normal (T-score at or above -1.0), Osteopenia (T-score between -1.0 and -2.5), or Osteoporosis (T-score at or below -2.5). 10-year Fracture Risk: FRAX not reported because: Some T-score for Spine Total or Hip Total or Femoral Neck at or below -2.5 Impression: The patient has osteoporosis, based on the Total Spine T-score. Discussion: INCREASED RISK OF FRACTURE. BONE DENSITY IS UNDESIRABLY LOW AT ONE OR MORE SKELETAL SITES, CONSISTENT WITH POSTMENOPAUSAL OSTEOPOROSIS. This patient's lowest T-score meets the World Health Organization's (WHO) criteria for osteoporosis at one or more sites (T-score -2.5 or below). In untreated patients, the risk of osteoporotic fracture increases approximately two-fold for each 1.0 SD decrease in T-score. Low bone density is not the only risk factor for fracture; also consider factors such as patient's age, frailty or poor health, risk of falling, risk of injury, previous osteoporotic fracture, family history of osteoporosis, cigarette smoking, low body weight, etc. Not everyone with low bone mineral density has osteoporosis; osteomalacia and other metabolic bone disorders should also be considered. Patients who have osteoporosis should be evaluated for specific diseases and conditions (secondary causes) that may cause or contribute to bone loss. The [place] [employer] Endocrinologists (AACE) and National Osteoporosis Foundation (NOF) recommend pharmacologic intervention for all postmenopausal women whose T-score is in this range. The patient should follow a healthful lifestyle (good nutrition with adequate calcium and vitamin D, and appropriate weight-bearing exercise). Follow-Up: Consider a repeat BMD and Vertebral Fracture Assessment (VFA) exam in 2 years or sooner if medically necessary, to reassess this patient's status. Reported by: KIMBERLYN MESA M.D. on 09/08/2023 11:43:00 AM.
== END ==
PROVIDERS: PCP Internal Medicine; Referring Provider Internal Medicine; Visit Provider Internal Medicine
DX: M81.0 Age-related osteoporosis without current pathological fracture (principal); Z78.0 Asymptomatic menopausal state
CPT/HCPCS: 77080

== ENCOUNTER → 2024-03-23 11:48 | Outpatient (CLI) | payer MEDICARE, OTHER, SELFPAY ==
[2023-07-15 16:42] VITALS: BMI 22.4
--- NOTE | 2024-03-23 11:49 | DI.CT.S_ITS ---
PROCEDURE: CT CHEST HIGH RESOLUTION INDICATIONS: Shortness of breath TECHNIQUE: Noncontrast 1.0 and 5.0 mm thick contiguous axial sections from the pulmonary apex to the posterior costophrenic angles, with 7 mm thick coronal and sagittal MIP reformats. 1 mm thick dynamic expiratory images acquired through the upper, mid, and lower lungs. 1.0 mm thick axial sections acquired from the ashish to the posterior costophrenic angles in the prone end-inspiration position. For radiation dose reduction, the following was used: automated exposure control, adjustment of mA and/or kV according to patient size. COMPARISON: [facility], CT, CT CHEST WO CON, 02/18/2022, 13:11. [facility], CT, CT CHEST HIGH RESOLUTION, 04/09/2023, 10:48. FINDINGS: Image quality: Diagnostic. Lower Neck: No enlarged lymph nodes. Thyroid: No thyroid nodules which require sonographic follow up, per consensus guidelines. Axillae: No enlarged lymph nodes. Chest Wall: Bilateral breast implants. Bones: Unremarkable. Lungs and Pleura: No pneumothorax or pleural effusions. No significant interval change. Bilateral reticular thickening. Traction bronchiectasis. There is honeycombing. A few areas of distal mucus airway plugging. The central airways are clear. Patchy areas of air trapping. No mass identified. Heart: Heart size is normal. No pericardial effusion. Thoracic Vessels: Ascending aorta measures 4 cm, (5/16), appears unchanged. Mediastinum and Briseida: No enlarged lymph nodes. Esophagus: No wall thickening. Small hiatal hernia. Upper Abdomen: Visualized upper abdomen solid organs and bowel loops appear normal. IMPRESSION: 1. No significant interval change. Similar pulmonary fibrosis. 2. No acute airspace opacity identified. Distal mucus airway plugging. Dictated by: Demar Pulido M.D. on 03/23/2024 at 15:22 Approved by: Demar Pulido M.D. on 03/23/2024 at 15:34
== END ==
LOC: CT 11:49
PROVIDERS: PCP Internal Medicine; Referring Provider Internal Medicine Sleep Medicine; Visit Provider Internal Medicine Sleep Medicine
DX: J84.10 Pulmonary fibrosis, unspecified (principal); J84.9 Interstitial pulmonary disease, unspecified; K44.9 Diaphragmatic hernia without obstruction or gangrene
CPT/HCPCS: 71250

== ENCOUNTER → 2024-05-11 09:48 | Outpatient (CLI) | payer MEDICARE, OTHER, SELFPAY ==
[2023-07-15 16:42] VITALS: BMI 22.4
[2024-05-11 11:26] LABS: Add Manual Diff / Slide Review NO; Basophils Absolute Auto 0 /uL (0-100); Basophils Percent Auto 0.4 % (0-2); Eosinophils Absolute Auto 400 /uL (0-450); Eosinophils Percent Auto 7.3 % (2-4); Hematocrit 43.2 % (36-46); Hemoglobin 14.2 g/dL (12.0-16.0); Lymphocytes Absolute Auto 1300 /uL (1100-4500); Lymphocytes Percent Auto 23.1 % (25-40); Mean Corpuscular HGB Conc 32.9 % (30-36); Mean Corpuscular Hemoglobin 29.6 PG (26-34); Mean Corpuscular Volume 89.9 fL (80-100); Monocytes Absolute Auto 500 /uL (0-900); Monocytes Percent Auto 9.5 % (3-14); Neutrophils Absolute Auto 3400 /uL (1500-7000); Neutrophils Percent Auto 59.7 % (50-75); Platelet Count 202 X10^3/uL (150-400); White Blood Cell Count 5.6 X10^3/uL (4.5-11.0)
[2024-05-11 11:55] LABS: Alanine Aminotransferase 25 IU/L (<35); Albumin 4.1 g/dL (3.5-5.0); Albumin Globulin Ratio 1.5 (1.0-2.8); Alkaline Phosphatase 47 U/L (38-126); Aspartate Aminotransferase 33 IU/L (14-36); BUN Creatinine Ratio 18.3 (6-22); Bilirubin Total 0.7 mg/dL (0.2-1.3); Blood Urea Nitrogen 13 mg/dL (7-17); Calcium 9.3 mg/dL (8.4-10.2); Carbon Dioxide 30 mmol/L (22-32); Chloride 102 mmol/L (98-107); Cholesterol 146 mg/dL (140-199); Estimated Glomerular Filt Rate > 60 mL/min (>60); Globulin 2.8 g/dL (1.7-4.1); Glucose 92 mg/dL (80-110); HDL Cholesterol 88 mg/dL (40-60); HEMOLYSIS < 15 (0-50); LDL Cholesterol Calculated 47 mg/dL (<100); Potassium 4.9 mmol/L (3.4-5.1); Sodium 136 mmol/L (137-145); Total Protein 6.9 g/dL (6.3-8.2); Triglycerides 56 mg/dL (35-150)
[2024-05-11 11:56] LABS: Erythrocyte Sedimentation Rate 4 MM/HR (0-20)
[2024-05-11 12:15] LABS: TSH w/ Reflex to FT4 2.44 uIU/mL (0.47-4.68)
[2024-05-11 12:48] LABS: Folate 5.1 ng/mL (2.76-20.0); Vitamin B12 663 pg/mL (239-931)
[2024-05-12 12:43] LABS: Hemoglobin A1C% w Est Avg Glu 5.6 % (4.0-6.0)
== END ==
PROVIDERS: PCP Family Medicine; Referring Provider Family Medicine; Visit Provider Family Medicine
DX: G62.9 Polyneuropathy, unspecified (principal); E03.9 Hypothyroidism, unspecified; J84.9 Interstitial pulmonary disease, unspecified; G45.9 Transient cerebral ischemic attack, unspecified; Z87.898 Personal history of other specified conditions; R73.9 Hyperglycemia, unspecified; Z13.1 Encounter for screening for diabetes mellitus
CPT/HCPCS: 36415; 80053; 80061; 82607; 82746; 83036; 84443; 85025; 85651

== ENCOUNTER → 2024-06-16 13:36 | Outpatient (CLI) | payer MEDICARE, OTHER, SELFPAY ==
[2023-07-15 16:42] VITALS: BMI 22.4
== END ==
PROVIDERS: Family Provider Family Medicine; PCP Family Medicine; Referring Provider Family Medicine; Visit Provider Family Medicine
DX: R20.0 Anesthesia of skin (principal); R20.2 Paresthesia of skin
CPT/HCPCS: 95886; 95910

== ENCOUNTER → 2024-07-02 14:18 | Outpatient (CLI) | payer MEDICARE, OTHER, SELFPAY ==
[2023-07-15 16:42] VITALS: BMI 22.4
--- NOTE | 2024-07-02 14:20 | DI.MRI.S_ITS ---
PROCEDURE: MR LUMBAR SPINE WO CON INDICATIONS: extremity numbness, inconclusive EMG TECHNIQUE: Noncontrast sagittal T1 spin echo and T2 fast echo, sagittal STIR, and T2 fast spin echo through the lumbar spine. In cases with scoliosis, additional coronal T2 fast spin echo may be performed. COMPARISON: None. FINDINGS: Image quality: Excellent Mild levoscoliosis of the lumbar spine, centered at L2. Mild retrolisthesis of L1 on L2, L2 on L3. Grade 1 anterolisthesis of L3 on L4. Mild retrolisthesis of L5 on S1. Multiple Schmorl's node of the visualized lower thoracic spine, and of the lumbar spine. There is an active Schmorl's node in the inferior endplate of T11, with associated mild marrow edema. Multilevel mild fibrovascular end plate change. Multilevel disc bulge and disc desiccation. Conus terminates at the level of L1, and is unremarkable. Right neural foraminal stenosis: Mild at T10-T11. Mild at L2-3. Mild at L4-5 . Moderate at L5-S1. Left neural foraminal stenosis: Mild at L1-2 L2-3, L4-5. Moderate at L5-S1. Axial images: T11-T12: Right paracentral disc protrusion. No central canal stenosis. T12-L1: Mild disc bulge. No central canal stenosis. L1-2: Disc bulge. No central canal stenosis. L2-3: Disc bulge. Mild bilateral facet arthropathy. No central canal stenosis. L3-4: Mild right, moderate left facet arthropathy. Posterior disc uncovering. Mild central canal stenosis. L4-5: Disc bulge. Mild bilateral facet arthropathy with ligamentum flap urgency. Mild central canal stenosis. L5-S1: Disc bulge. No central canal stenosis. Sacrum: Visualized sacrum is unremarkable. No abdominal aortic aneurysm. The abdominal aorta is torturous. Suggestion of hiatal hernia, incompletely evaluated. Right renal cyst. IMPRESSION: 1. Multilevel degenerative changes of the lumbar spine, most pronounced at L5-S1, where there is moderate bilateral neural foraminal stenosis. 2. Multilevel mild central canal stenosis in the lumbar spine. 3. Active small Schmorl's node at the inferior endplate of T11. Dictated by: Susan Randall M.D. on 07/05/2024 at 11:31 Approved by: Susan Randall M.D. on 07/05/2024 at 11:45
== END ==
PROVIDERS: Family Provider Family Medicine; PCP Family Medicine; Referring Provider Family Medicine; Visit Provider Family Medicine
DX: R20.0 Anesthesia of skin (principal); M48.07 Spinal stenosis, lumbosacral region; M48.061 Spinal stenosis, lumbar region without neurogenic claudication; M51.44 Schmorl's nodes, thoracic region
CPT/HCPCS: 72148

== ENCOUNTER 2024-07-20 12:30 | Outpatient (RCR) | payer MEDICARE, OTHER, SELFPAY ==
[2023-07-15 16:42] VITALS: BMI 22.4
== END 2024-07-20 14:30 ==
LOC: PUL 12:30
PROVIDERS: PCP Internal Medicine; Referring Provider Internal Medicine Sleep Medicine; Visit Provider Internal Medicine Sleep Medicine
DX: J84.89 Other specified interstitial pulmonary diseases (principal)
CPT/HCPCS: G0237; G0238

== ENCOUNTER 2024-10-04 12:47 | Outpatient (CLI) | payer MEDICARE, OTHER, SELFPAY ==
[2023-07-15 16:42] VITALS: BMI 22.4
[2024-10-04] VITALS (9 sets, daily range): BP systolic 144–175; BP diastolic 80–89; PULSE 69–73; RESP 2–22; TEMP 36.8; O2SAT 92–100
--- NOTE | 2024-10-04 12:48 | DI.RAD.S_ITS ---
PROCEDURE: PAIN L/S TRANSFORAMINAL INJECT INDICATIONS: Right L4/5 TFESI COMPARISON: None. FINDINGS/IMPRESSION: Fluoroscopic spot filming was performed to verify placement of spinal needles at the L4-5 level(s), as labeled on the films. Appropriate location(s) of the needle tip(s) was confirmed by injection of iodinated contrast. Dictated by: Wanda Bradley M.D. on 10/04/2024 at 16:06 Approved by: Wanda Bradley M.D. on 10/04/2024 at 16:06
[2024-10-04] MEDS: MIDAZOLAM 2 MG/2 ML VIAL 1 MG IV (14:08)
[2024-10-04] MEDS: DEXAMETHASONE 10 MG/ML VIAL INJ (14:11)
[2024-10-04] MEDS: BUPIVACAINE 0.25% (PF) VIAL 2 ML INJ (14:11)
[2024-10-04] MEDS: iopamidoL 15 ML VIAL 3 ML INJ (14:12)
[2024-10-04] MEDS: BETAMETHASONE 30 MG/5 ML MDV 12 MG INJ (14:12)
--- NOTE | 2024-10-04 14:26 | P.PCN_ITS ---
Date/Time/Diagnoses Date of procedure: 10/04/24 Time of procedure: 14:26 Pre-procedure diagnosis: 1. FORAMINAL STENOSIS WITH LE SYMPTOMS Post-procedure diagnosis: same Procedure Notes Procedure: 1. FLUOROSCOPICALLY GUIDED CONTRAST CONTROLLED TRANSFORAMINAL EPIDURAL STEROID INJECTION - RIGHT L4/5 TFESI Indications: Zayra is referred by Dr. Tian for treatment of Foraminal Stenosis with Right LE Symptoms Physician: Samuel Hampton Total Fluoroscopy time (seconds): 9 Total sedation minutes: 11 Complications: none Procedure in detail & Post-procedure care: FINDINGS Foraminal Nerve Root Compression secondary to disc disease and facet hypertrophy DESCRIPTION OF PROCEDURE Following review of allergy and review of potential side effects and complications, including, but not necessarily limited to, infection, allergic reaction, local tissue breakdown, stroke, temporary or permanent nerve injury, paralysis, and possible , the patient indicated that the patient understood and agreed to proceed. An informed consent document was signed by the patient, witnessed by a nurse, and placed in the patient's chart. Additionally, other treatment options including medications, modalities, and physical therapy were reviewed with the patient. After review of previous anaesthesic history and IV conscious sedation the patient was deemed safe to proceed with today?s procedure with IV conscious sedation as ASA class II designation. Safety time-out was performed to confirm patient ID, procedure to be performed and site of procedure. IV sedation was accomplished with a combination of 1mg of Versed was administered by the RN after DO order, titrated to patient comfort during the course of the procedure while the patient remained responsive to all verbal commands In the prone position following sterile prep and drape of the lumbar region, the right L4/5 posterior neuroforamen was identified fluoroscopically. The skin was anesthetized via a 25-gauge 1.5-inch needle with 1% lidocaine solution. At this point, a 25-gauge 3.5-inch spinal needle was atraumatically introduced and advanced under fluoroscopic guidance through the posterior right L4/5 neuroforamen to approximately the anterior aspect of the canal. Depth was confirmed on lateral view. Following negative aspiration, injection of approximately 1.5cc of Isovue 200 under live fluoroscopy in the AP view co nfirmed excellent flow along the nerve root, into the epidural space without vascular or intrathecal uptake observed Radiological data, including multiple fluoroscopic views of the lumbosacral spin e, reveal a spinal needle at the right L4/5 posterior neuroforamen. Subsequent views show flow of contrast material flowing superiorly and inferiorly along the nerve root confirming epidural flow. Subsequently, a test dose of 1.5 cc of 1% lidocaine solution was administered and patient was observed for two minutes for signs or symptoms of complications, including abdominal pain, shortness of breath, bilateral upper or lower extremity weakness, nausea and vomiting, prior to steroid injection. At this point, a total of 2cc or 10mg of dexamethasone and 6mg of betamethasone was injected without incident. The procedure tolerated the procedure well without signs or symptoms of complications prior to transfer to the recovery area continued monitoring without incident. The patient was then transferred to the recovery area where they were observed for an appropriate time after the injection. The patient reported a VAS score of 7 prior to the procedure and a post- procedure VAS of 0. POST OP INSTRUCTIONS The patient was provided a Pain Log to continue to record their response to the target-specific procedure prior to follow-up visit with their referring physician. Additionally, specific post-injection care instructions and a contact number to our office were provided if concerns arise regarding possible complications associated with the procedure are suspected.
== END 2024-10-04 14:49 | disposition home or self-care (01) ==
LOC: RAD 12:48
PROVIDERS: Family Provider Family Medicine; PCP Family Medicine; Referring Provider Physical Medicine & Rehabilitation; Visit Provider Physical Medicine & Rehabilitation
DX: M48.061 Spinal stenosis, lumbar region without neurogenic claudication (principal); M51.16 Intervertebral disc disorders with radiculopathy, lumbar region; M47.26 Other spondylosis with radiculopathy, lumbar region
CPT/HCPCS: 64483; 99152; J0702; J1100; J2250; J3490

== ENCOUNTER 2025-02-14 12:15 | Outpatient (RCR) | payer MEDICARE, OTHER, SELFPAY ==
[2023-07-15 16:42] VITALS: BMI 22.4
--- NOTE | 2024-12-05 13:00 | PT.OIE ---
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 Address: [address] [place] [address] Email: [email or web address] Anshul Castanon MD Attending Provider Physician Referring Provider Specialty: [facility] Address: [address] [place] [address] Email: [email or web address] Physical Therapy Initial Evaluation PT-OP-A Visit Information Start: 12/03/24 18:09 Freq: Status: Active Protocol: Document 12/05/24 17:24 LRN (Rec: 12/05/24 13:56 LRN [id number]) Out-Patient Physical Therapy Visit Information Visit Information Visit Type Initial Evaluation Visit Start Time 13:00 Visit Stop Time 13:52 Visit Number 1 Evaluation Information Evaluation Date 12/05/24 Precautions Precautions Per intake form: Osteoporosis , SOB from pulmonary fibrosis, twisted bowel, breast implant . PT-OP-B Current Condition Start: 12/03/24 18:09 Freq: Status: Active Protocol: Document 12/05/24 17:24 LRN (Rec: 12/05/24 13:56 LRN [id number]) Current Condition History of Current Condition Onset Date 2 yrs ago Current Complaints R LE is now dull, annoying, achy pain, with worst part behind the knee. History of Current Condition Insidious onset of tingling in RLE and was given Vit D that didn't help. 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 Her PCP (Dr He) referred her to have an EMG and states her problem was not determined to be neurological, but coming from the spine. Early Jul [address] Hampton and had a cortisone injection in spine ~August 2024, with no change in symptoms. Just this morning she had a 2nd accupuncture appt by Dr. Castanon, and no long has the needles/pins feeling so he is now being referred to physical therapy. The R LE symptom is now a dull annoying achy pain , worst pain is behind the knee. She is able to sleep on her back or L side. R sidelie is uncomfortable due to R hip pain. Walking, pt feels like a rubber band is under the R foot all the way to the hip. When stepping feels like something is lifting it that she isn't controlling and she just follows her leg. She states her spouse says her R leg swings around (circumducts) walking. Prior Treatments and Tests Pt reports prior Accupuncture appts x 2, by Dr. Castanon. MRI 07/02/24 of L/S: mild levoscoliosis centered at L2, mild retrolisthesis of L1 on L2 and L2 on L3, Grade 1 anterolisthesis of L3 on L4, mild of L5 on S1. Multilevel disc bulge and desiccation and multilevel central canal stenosis in the lumbar spine. Active small Schmorl's node at inferior endplate of T11. Future Testing and Treatments Planned Next Dr. Castanon accupuncture appt is 12/16/24. Treatment Goals Patient/Caregiver Goals Pt goals: - Eliminate R LE pain to go for walk w/o having akward leg spasms. - Remove the clumsiness/ swerving while walking and ache in R LE. - agreeable to a HEP. Personal Factors Other Personal Factors That May Effect SOB from Pulmonary Fibrosis, Therapy/Recovery Thyroid disorder, Used to walk daily, States few months ago in pulmonary rehab she exercised 90 minutes including walking 3x/wk (12 wks). PT-OP-C Subjective Start: 12/03/24 18:09 Freq: Status: Active Protocol: Document 12/05/24 17:24 LRN (Rec: 12/05/24 13:56 LRN [id number]) Patient Questionnaires Oswestry Low Back Index Oswestry Score 10/50 = 20/100 Oswestry Impairment 20 to 39% Impaired (Score 20- 39) OP-PT Pain Assessment Pain Assessment Grid Paper Pain Assessment Grid Completed Yes Location Low Back Pain Location Details R Low back pain only short period first in morning Intensity 1 Scale Used Numeric (0 - 10) Description Aching Frequency Only when getting up in morning R LE Pain Location Details Posterior and lateral leg into foot. Intensity 4 Scale Used Numeric (0 - 10) Description Aching Frequency Constant PT-OP-E Functional Tests Start: 12/03/24 18:09 Freq: Status: Active Protocol: Document 12/05/24 14:44 LRN (Rec: 12/05/24 16:21 LRN [id number]) Functional Tests 2 Minute Walk Test Distance 358 ft, 10 in Device Used None Comments ~2-3x excessive sway during gait PT-OP-G Mobility & Gait Start: 12/03/24 18:09 Freq: Status: Active Protocol: Document 12/05/24 17:24 LRN (Rec: 12/05/24 13:56 LRN [id number]) OP Gait Assessment Gait Gait Assistance Required: Independent Able to Maintain Weight Bearing Status Yes During Gait Assistive Devices Assistive Device None Gait Deviations General Gait Pattern Decreased Stride Length, Decreased Feet Clearance Factors Limiting Gait Function Factors Limiting Gait Function Incoordination,Pain Comments Gait Comments Occasional swinging out of R LE during swing through phase. PT-OP-H Neuro Start: 12/03/24 18:09 Freq: Status: Active Protocol: Document 12/05/24 17:24 LRN (Rec: 12/05/24 13:56 LRN [id number]) Sensation Evaluation Gross Sensation Gross Sensation WNL Deep Tendon Reflex & Clonus Assessment Deep Tendon Reflex Left Achilles Deep Tendon Reflex 2+ Normal Right Achilles Deep Tendon Reflex 3+ Normal But Brisk Bilateral Patellar Deep Tendon Reflex 3+ Normal But Brisk PT-OP-J Posture/Palpation/Skin Start: 12/03/24 18:09 Freq: Status: Active Protocol: Document 12/05/24 17:24 LRN (Rec: 12/05/24 13:56 LRN [id number]) Posture Evaluation Position Standing Head/C-Spine Posture Side Bent Left,Forward Head L-Spine Posture Shifted Left Shoulder Posture (R) Elevated Arm Posture (L) Internally Rotated,(R) Internally Rotated Pelvis Posture (R) Iliac Crest Superior,(L) PSIS Posterior Hip Posture (L) Externally Rotated Ankle/Foot Posture (L) Calcaneal Inversion Palpation Assessment Location R LE Palpation Location Normal sensation without pain complaints Low back Palpation Location R SIJ, gluteals Palpation Findings Tenderness PT-OP-K Range of Motion Start: 12/03/24 18:09 Freq: Status: Active Protocol: Document 12/05/24 17:24 LRN (Rec: 12/05/24 13:56 LRN [id number]) Lumbar Spine Range of Motion Lumbar Spine Active Degrees Testing Position Standing Comments Deferred due to time constraints. Hip Goniometric Range of Motion Hip Right Passive Testing Position Supine Straight Leg Raise 90 Left Passive Testing Position Supine Straight Leg Raise 90 PT-OP-L Special Tests Start: 12/03/24 18:09 Freq: Status: Active Protocol: Document 12/05/24 17:24 LRN (Rec: 12/05/24 13:56 LRN [id number]) Special Tests Lumbar Spine Special Tests Manual Traction Test Results - Comments No change with R LE pain Straight Leg Raise Test Results - Comments Mikael is 90 deg's w/o LE pain onset Slump Test Results - bilaterally Comments No change in sensation or pain Vertical Spine Loading Test Results - Comments No change in symptoms PT-OP-M Strength Start: 12/03/24 18:09 Freq: Status: Active Protocol: Document 12/05/24 17:24 LRN (Rec: 12/05/24 13:56 LRN [id number]) Hip Strength Hip Manual Muscle Testing Right Flexion (L2) 2 Poor Abduction 4 Good External Rotation 5 Normal Internal Rotation 5 Normal Comments Not able to assess AD due to pt unable to tolerate R sidelie. Left Flexion (L2) 3 Fair Adduction 1 Trace External Rotation 5 Normal Internal Rotation 5 Normal Comments Not able assess hip AB due pt unable to tolerate R sidelie. Knee Strength Knee Manual Muscle Testing Right Flexion (S2) 4+ Good+ Extension (L3) 4 Good Left Comments Generally 5/5 Ankle/Foot Strength Ankle and Foot Manual Muscle Testing Right Dorsiflexion (L4) 3+ Fair+ Plantarflexion (S1) 5 Normal Inversion 4+ Good+ Eversion (S1) 3 Fair Left Dorsiflexion (L4) 5 Normal Plantarflexion (S1) 5 Normal Inversion 5 Normal Eversion (S1) 5 Normal Toe Strength Toe Manual Muscle Testing Left Great Toe Extension 5 Normal Right Great Toe Flexion 4 Good Extension 5 Normal PT-OP-Q Treatments Start: 12/03/24 18:09 Freq: Status: Active Protocol: Document 17:24 LRN (Rec: 12/05/24 13:56 LRN [id number]) Therapeutic Exercises Sitting Exercises R Piriformis stretch Sitting Exercise Name R knee over ankle and tried crossing of leg for stretch Side right Reps/Minutes 3' Comments No stretch with crossing of leg. Good stretch ankle over knee. Self-Care/Home Management Treatment Education Other Education Discussed results of evaluation, goals, treatment, and plan of care (POC) with pt , attendance/cx/dns policy; pt agreeable to evaluation, goals, treatment, attendance/ cx/dns policy and POC. Activities Self-Care/Home Management Activities Discussed pt's HEP and I/S pt to continue and bring in program next visit. Pt to continue supine Piriformis stretch and if tolerated, add sitting piriformis stretch. PT-OP-T Assessment and Plan Start: 12/03/24 18:09 Freq: Status: Active Protocol: Document 12/05/24 17:24 LRN (Rec: 12/05/24 13:56 [facility] [id number]) Physical Therapy Assessment Rehab Potential Rehabilitation Potential Good Evaluation Complexity Number of Personal Factors/Comorbidities 1-2 Number of Body Systems Impaired 4 or More Clinical Presentation at Evaluation Evolving Impairments Impairments Activity Tolerance,Balance, Coordination,Gait,Pain,Posture ,ROM,Soft Tissue Mobility, Strength Goals Three Impairment Pain and clumsiness of R LE with walking Short Term Goal (STG) Improve R LE strength with pt able to walk with reported less clumsiness. STG Duration 01/20/25 [employer] Goal (LTG) Modify walking gait and time as needed to eliminate R LE pain walking. LTG Duration 03/03/25 Two Impairment Decreased gait stability Short Term Goal (STG) Improve balance to decrease swerving with gait. STG Duration 01/20/25 [employer] Goal (LTG) Improve gait stability to remove swerving and akward leg spasms while walking. LTG Duration 03/03/25 One Impairment Pt lacks appropriate self are home exercise program (HEP) Short Term Goal (STG) Pt will be able to participate in a self care corner balance HEP. STG Duration 01/20/25 [employer] Goal (LTG) Pt will be independent on a self care HEP to improve core & R LE strength LTG Duration 03/03/25 Assessment Summary Assessment Pt is an 84 yo female with c/o chronic R LE Sciatic pain ( records indicate pt has chronic LBP that the pt currently denies) and palpable pain at the R SIJ, that the pt report's through EMG testing, is lumbar disc related. MRI indicate pt has multi-level disc bulges and multilevel central canal stenosis in the lumbar spine as well as areas of both retro - and reuben-listhesis. The pt has postural changes consistent with L/S disc bulges. The pt is having positive results from her accupuncture appts with resolution of initial tingling in the R LE. The pt will benefit from skilled physical therapy for STM, mobility ex's to improve posture, LE strengthening, balance and gait training. Thept will benefit from skilled physical therapy but her rehab may take longer than expected due to the chronicity and complexity of the mechancal changes in her lumbar spine and her comorbidities of osteoporosis, thyroid disorder, and pulmanary fibrosis. Physical Therapy Plan Frequency and Duration Frequency of Treatment 2x/Week Duration of treatment (weeks) 12 Plan of Care Start Date 12/05/24 Plan of Care End Date 03/03/25 Therapeutic Interventions Therapeutic Interventions Balance Training,Gait Training ,Home Exercise Program, Neuromuscular Re-education, Self-Care/Home Management,Soft Tissue Mobilization, Therapeutic Activities, Therapeutic Exercises Modalities Cold Pack/Ice Massage,Electric Stimulation,Hot Packs Other Therapeutic Interventions Gentle manual therapy. Next Visit Focus/Plan Next Note Type Treatment Note Next Visit Plan Next: Assess trunk and hip ROM, and toe(s) strength, balance. Initiate Lincoln extension ex's with caution at level L3 on L4 due to Grade 1 anterolisthesis (note: retrolisthesis at L1 on L2, L2 on L3 and L5 on S1. Assess for need of gentle sacral balancing (note: osteoporosis) . STM: L/S. MH/IFES of L/S. Ther Ex: Hip stretches, LE strengthening, when pain reduced, progress to Core stab . Pt education: Posture & body mechanics ADLs.
--- NOTE | 2024-12-08 15:42 | PT.OTN ---
Current Diagnoses Other chronic pain (12/08/24) Spondylosis without myelopathy or radiculopathy, lumbar region (12/08/24) Radiculopathy, lumbar region (12/08/24) Low back pain, unspecified (12/08/24) Physical Therapy Treatment Note PT-OP-A Visit Information Start: 12/03/24 18:09 Freq: Status: Active Protocol: Document 12/08/24 14:34 LRN (Rec: 12/08/24 15:42 LRN [id number]) Out-Patient Physical Therapy Visit Information Visit Information Visit Type Treatment Note Visit Start Time 14:34 Visit Stop Time 15:22 Visit Number 2 Evaluation Information Evaluation Date 12/05/24 Precautions Precautions Per intake form: Osteoporosis , SOB from pulmonary fibrosis, twisted bowel, breast implant . PT-OP-B Current Condition Start: 12/03/24 18:09 Freq: Status: Active Protocol: Document 12/05/24 13:00 LRN (Rec: 12/05/24 13:56 LRN [id number]) Current Condition History of Current Condition Onset Date 2 yrs ago Current Complaints R LE is now dull, annoying, achy pain, with worst part behind the knee. History of Current Condition Insidious onset of tingling in RLE and was given Vit D that didn't help. 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 Her PCP (Dr He) referred her to have an EMG and states her problem was not determined to be neurological, but coming from the spine. Early Jul [address] Hampton and had a cortisone injection in spine ~August 2024, with no change in symptoms. Just this morning she had a 2nd accupuncture appt by Dr. Castanon, and no long has the needles/pins feeling so he is now being referred to physical therapy. The R LE symptom is now a dull annoying achy pain , worst pain is behind the knee. She is able to sleep on her back or L side. R sidelie is uncomfortable due to R hip pain. Walking, pt feels like a rubber band is under the R foot all the way to the hip. When stepping feels like something is lifting it that she isn't controlling and she just follows her leg. She states her spouse says her R leg swings around (circumducts) walking. Prior Treatments and Tests Pt reports prior Accupuncture appts x 2, by Dr. Castanon. MRI 07/02/24 of L/S: mild levoscoliosis centered at L2, mild retrolisthesis of L1 on L2 and L2 on L3, Grade 1 anterolisthesis of L3 on L4, mild of L5 on S1. Multilevel disc bulge and desiccation and multilevel central canal stenosis in the lumbar spine. Active small Schmorl's node at inferior endplate of T11. Future Testing and Treatments Planned Next Dr. Castanon accupuncture appt is 12/16/24. Treatment Goals Patient/Caregiver Goals Pt goals: - Eliminate R LE pain to go for walk w/o having akward leg spasms. - Remove the clumsiness/ swerving while walking and ache in R LE. - agreeable to a HEP. Personal Factors Other Personal Factors That May Effect SOB from Pulmonary Fibrosis, Therapy/Recovery Thyroid disorder, Used to walk daily, States few months ago in pulmonary rehab she exercised 90 minutes including walking 3x/wk (12 wks). PT-OP-C Subjective Start: 12/03/24 18:09 Freq: Status: Active Protocol: Document 12/08/24 14:34 LRN (Rec: 12/08/24 15:42 LRN [id number]) OP-PT Subjective Patient Comments Patient Comments She brought the ex's the MD gave her for review. Numbness from ball of R foot to toes, pain in RLE from lateral hip to lateral ankle ( 4/10, constrant dull ache). In morning have pain on waking in R LB. PT-OP-G Mobility & Gait Start: 12/03/24 18:09 Freq: Status: Active Protocol: Document 12/05/24 13:00 LRN (Rec: 12/05/24 13:56 LRN [id number]) OP Gait Assessment Gait Gait Assistance Required: Independent Able to Maintain Weight Bearing Status Yes During Gait Assistive Devices Assistive Device None Gait Deviations General Gait Pattern Decreased Stride Length, Decreased Feet Clearance Factors Limiting Gait Function Factors Limiting Gait Function Incoordination,Pain Comments Gait Comments Occasional swinging out of R LE during swing through phase. PT-OP-H Neuro Start: 12/03/24 18:09 Freq: Status: Active Protocol: Document 12/05/24 13:00 LRN (Rec: 12/05/24 13:56 LRN [id number]) Sensation Evaluation Gross Sensation Gross Sensation WNL Deep Tendon Reflex & Clonus Assessment Deep Tendon Reflex Left Achilles Deep Tendon Reflex 2+ Normal Right Achilles Deep Tendon Reflex 3+ Normal But Brisk Bilateral Patellar Deep Tendon Reflex 3+ Normal But Brisk PT-OP-J Posture/Palpation/Skin Start: 12/03/24 18:09 Freq: Status: Active Protocol: Document 12/05/24 13:00 LRN (Rec: 12/05/24 13:56 LRN [id number]) Posture Evaluation Position Standing Head/C-Spine Posture Side Bent Left,Forward Head L-Spine Posture Shifted Left Shoulder Posture (R) Elevated Arm Posture (L) Internally Rotated,(R) Internally Rotated Pelvis Posture (R) Iliac Crest Superior,(L) PSIS Posterior Hip Posture (L) Externally Rotated Ankle/Foot Posture (L) Calcaneal Inversion Palpation Assessment Location R LE Palpation Location Normal sensation without pain complaints Low back Palpation Location R SIJ, gluteals Palpation Findings Tenderness PT-OP-K Range of Motion Start: 12/03/24 18:09 Freq: Status: Active Protocol: Document 12/08/24 14:34 LRN (Rec: 12/08/24 15:42 LRN [id number]) Hip Goniometric Range of Motion Hip Right Passive Testing Position Supine Straight Leg Raise 90 Internal Rotation 30 External Rotation 65 Left Passive Testing Position Supine Straight Leg Raise 90 Internal Rotation 10 External Rotation 70 PT-OP-L Special Tests Start: 12/03/24 18:09 Freq: Status: Active Protocol: Document 12/05/24 13:00 LRN (Rec: 12/05/24 13:56 LRN [id number]) Special Tests Lumbar Spine Special Tests Manual Traction Test Results - Comments No change with R LE pain Straight Leg Raise Test Results - Comments Mikael is 90 deg's w/o LE pain onset Slump Test Results - bilaterally Comments No change in sensation or pain Vertical Spine Loading Test Results - Comments No change in symptoms PT-OP-M Strength Start: 12/03/24 18:09 Freq: Status: Active Protocol: Document 12/05/24 13:00 LRN (Rec: 12/05/24 13:56 LRN [id number]) Hip Strength Hip Manual Muscle Testing Right Flexion (L2) 2 Poor Abduction 4 Good External Rotation 5 Normal Internal Rotation 5 Normal Comments Not able to assess AD due to pt unable to tolerate R sidelie. Left Flexion (L2) 3 Fair Adduction 1 Trace External Rotation 5 Normal Internal Rotation 5 Normal Comments Not able assess hip AB due pt unable to tolerate R sidelie. Knee Strength Knee Manual Muscle Testing Right Flexion (S2) 4+ Good+ Extension (L3) 4 Good Left Comments Generally 5/5 Ankle/Foot Strength Ankle and Foot Manual Muscle Testing Right Dorsiflexion (L4) 3+ Fair+ Plantarflexion (S1) 5 Normal Inversion 4+ Good+ Eversion (S1) 3 Fair Left Dorsiflexion (L4) 5 Normal Plantarflexion (S1) 5 Normal Inversion 5 Normal Eversion (S1) 5 Normal Toe Strength Toe Manual Muscle Testing Left Great Toe Extension 5 Normal Right Great Toe Flexion 4 Good Extension 5 Normal PT-OP-Q Treatments Start: 12/03/24 18:09 Freq: Status: Active Protocol: Document 12/08/24 14:34 LRN (Rec: 12/08/24 15:42 LRN [id number]) Therapeutic Exercises Supine Exercises Iliopsoas stretch Supine Exercise Name review of prior HEP Side bilateral Reps/Minutes x 6 Alt arm leg lifts Supine Exercise Name review of prior HEP Side bilateral Reps/Minutes x 3 each Hamstring stretch Supine Exercise Name review of prior HEP. Cued to do all on same side at a time. Side bilateral Reps/Minutes 10 SH x 3 Piriformis stretch Supine Exercise Name review of prior HEP. Legs crossed>KTC, Cued same side at a time. Side right Reps/Minutes 10 SH x 6 R, x3 L DKTC Supine Exercise Name review of prior HEP Reps/Minutes 10SH x 3 Comments Stretch felt in LB Cued to do all on same side at a time. SKTC Supine Exercise Name review of prior HEP Side bilateral Reps/Minutes 10 SH x 3 Comments Stretch felt in LB. Cued to do all on same side at a time. Manual Therapy Treatment Consent Patient gave verbal consent for manual Yes treatment Soft Tissue Mobilization Sacral balancing Body Location Sacrum Mobilization Type Sustained Pressure Body Position Sup on pillows Comments R Sacral Sulcus - inferior & PA R shear 6 pt balancing R lateral leg Mobilization Type Instrument Assisted,Strumming Intensity/Depth Mild Body Position Valery PT-OP-T Assessment and Plan Start: 12/03/24 18:09 Freq: Status: Active Protocol: Document 12/08/24 14:34 LRN (Rec: 12/08/24 15:42 LRN [id number]) Physical Therapy Assessment Goals Three Impairment Pain and clumsiness of R LE with walking Short Term Goal (STG) Improve R LE strength with pt able to walk with reported less clumsiness. STG Duration 01/20/25 [employer] Goal (LTG) Modify walking gait and time as needed to eliminate R LE pain walking. LTG Duration 03/03/25 Two Impairment Decreased gait stability Short Term Goal (STG) Improve balance to decrease swerving with gait. STG Duration 01/20/25 [employer] Goal (LTG) Improve gait stability to remove swerving and akward leg spasms while walking. LTG Duration 03/03/25 One Impairment Pt lacks appropriate self are home exercise program (HEP) Short Term Goal (STG) Pt will be able to participate in a self care corner balance HEP. STG Duration 01/20/25 [facility] Goal (LTG) Pt will be independent on a self care HEP to improve core & R LE strength. 12/08/24: Modified ex to increase to 6 reps and placed trunk rot on hold. LTG Duration 03/03/25 progressed 12/08/24 Assessment Summary Assessment 84 yo female w/Lumbar disc herniation with chronic R LE sciatic pain (including R LBP first in AM), multi-level disc bulges and multilevel central canal stenosis in L/S; areas of both retro- and reuben- listhesis with lumbar shift L as expected. Today, she continues to have no tingling in the R LE, but has numbness in the forefoot to toes and pain in the lateral LE to foot (4/10), LBP only first in the morning. Decr'd L IR and R ER mobility. Fair tolerance to Sacral balancing, Poor at sacral sulcus. Physical Therapy Plan Frequency and Duration Frequency of Treatment 2x/Week Duration of treatment (weeks) 12 Plan of Care Start Date 12/05/24 Plan of Care End Date 03/03/25 Next Visit Focus/Plan Next Note Type Treatment Note Next Visit Plan Next: Assess response to gentle sacral balancing (note: osteoporosis). Assess trunk ROM, and toe(s) strength , assess & start balance trainng. Initiate Lincoln extension ex 's with caution at level L3 on L4 due to Grade 1 anterolisthesis (note: retrolisthesis at L1 on L2, L2 on L3 and L5 on S1. STM: L/S. MH/IFES of L/S. Ther Ex: Hip stretches, LE strengthening, when pain reduced, progress to Core stab . Pt education: Posture & body mechanics ADLs.
--- NOTE | 2024-12-13 17:02 | PT.OTN ---
Current Diagnoses Other chronic pain (12/13/24) Spondylosis without myelopathy or radiculopathy, lumbar region (12/13/24) Radiculopathy, lumbar region (12/13/24) Low back pain, unspecified (12/13/24) Physical Therapy Treatment Note PT-OP-A Visit Information Start: 12/03/24 18:09 Freq: Status: Active Protocol: Document 12/13/24 13:46 LRN (Rec: 12/13/24 14:32 LRN [id number]) Out-Patient Physical Therapy Visit Information Visit Information Visit Type Treatment Note Visit Start Time 13:46 Visit Stop Time 14:30 Visit Number 3 Evaluation Information Evaluation Date 12/05/24 Precautions Precautions Per intake form: Osteoporosis , SOB from pulmonary fibrosis, twisted bowel, breast implant . PT-OP-B Current Condition Start: 12/03/24 18:09 Freq: Status: Active Protocol: Document 12/05/24 13:00 LRN (Rec: 12/05/24 13:56 LRN [id number]) Current Condition History of Current Condition Onset Date 2 yrs ago Current Complaints R LE is now dull, annoying, achy pain, with worst part behind the knee. History of Current Condition Insidious onset of tingling in RLE and was given Vit D that didn't help. 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 Her PCP (Dr eH) referred her to have an EMG and states her problem was not determined to be neurological, but coming from the spine. Early Jul [address] Hampton and had a cortisone injection in spine ~August 2024, with no change in symptoms. Just this morning she had a 2nd accupuncture appt by Dr. Castanon, and no long has the needles/pins feeling so he is now being referred to physical therapy. The R LE symptom is now a dull annoying achy pain , worst pain is behind the knee. She is able to sleep on her back or L side. R sidelie is uncomfortable due to R hip pain. Walking, pt feels like a rubber band is under the R foot all the way to the hip. When stepping feels like something is lifting it that she isn't controlling and she just follows her leg. She states her spouse says her R leg swings around (circumducts) walking. Prior Treatments and Tests Pt reports prior Accupuncture appts x 2, by Dr. Castanon. MRI 07/02/24 of L/S: mild levoscoliosis centered at L2, mild retrolisthesis of L1 on L2 and L2 on L3, Grade 1 anterolisthesis of L3 on L4, mild of L5 on S1. Multilevel disc bulge and desiccation and multilevel central canal stenosis in the lumbar spine. Active small Schmorl's node at inferior endplate of T11. Future Testing and Treatments Planned Next Dr. Castanon accupuncture appt is 12/16/24. Treatment Goals Patient/Caregiver Goals Pt goals: - Eliminate R LE pain to go for walk w/o having akward leg spasms. - Remove the clumsiness/ swerving while walking and ache in R LE. - agreeable to a HEP. Personal Factors Other Personal Factors That May Effect SOB from Pulmonary Fibrosis, Therapy/Recovery Thyroid disorder, Used to walk daily, States few months ago in pulmonary rehab she exercised 90 minutes including walking 3x/wk (12 wks). PT-OP-C Subjective Start: 12/03/24 18:09 Freq: Status: Active Protocol: Document 12/13/24 13:46 LRN (Rec: 12/13/24 14:32 LRN [id number]) OP-PT Subjective Patient Comments Patient Comments Back pain is worse, pain down the R lateral leg is better. Stretched the lateral R thigh and she feels the swelling might be down. Tried using heat on the lower leg, because the pain is a burning pain and the heat drove her nuts. Since injection, no tingling in feet and the numbness in the feet has been going away now only has slight numbness in the ball of the R foot and a little in the L foot. PT-OP-G Mobility & Gait Start: 12/03/24 18:09 Freq: Status: Active Protocol: Document 12/05/24 13:00 LRN (Rec: 12/05/24 13:56 LRN [id number]) OP Gait Assessment Gait Gait Assistance Required: Independent Able to Maintain Weight Bearing Status Yes During Gait Assistive Devices Assistive Device None Gait Deviations General Gait Pattern Decreased Stride Length, Decreased Feet Clearance Factors Limiting Gait Function Factors Limiting Gait Function Incoordination,Pain Comments Gait Comments Occasional swinging out of R LE during swing through phase. PT-OP-H Neuro Start: 12/03/24 18:09 Freq: Status: Active Protocol: Document 12/05/24 13:00 LRN (Rec: 12/05/24 13:56 LRN [id number]) Sensation Evaluation Gross Sensation Gross Sensation WNL Deep Tendon Reflex & Clonus Assessment Deep Tendon Reflex Left Achilles Deep Tendon Reflex 2+ Normal Right Achilles Deep Tendon Reflex 3+ Normal But Brisk Bilateral Patellar Deep Tendon Reflex 3+ Normal But Brisk PT-OP-J Posture/Palpation/Skin Start: 12/03/24 18:09 Freq: Status: Active Protocol: Document 12/05/24 13:00 LRN (Rec: 12/05/24 13:56 LRN [id number]) Posture Evaluation Position Standing Head/C-Spine Posture Side Bent Left,Forward Head L-Spine Posture Shifted Left Shoulder Posture (R) Elevated Arm Posture (L) Internally Rotated,(R) Internally Rotated Pelvis Posture (R) Iliac Crest Superior,(L) PSIS Posterior Hip Posture (L) Externally Rotated Ankle/Foot Posture (L) Calcaneal Inversion Palpation Assessment Location R LE Palpation Location Normal sensation without pain complaints Low back Palpation Location R SIJ, gluteals Palpation Findings Tenderness PT-OP-K Range of Motion Start: 12/03/24 18:09 Freq: Status: Active Protocol: Document 12/08/24 14:34 LRN (Rec: 12/08/24 15:42 LRN [id number]) Hip Goniometric Range of Motion Hip Right Passive Testing Position Supine Straight Leg Raise 90 Internal Rotation 30 External Rotation 65 Left Passive Testing Position Supine Straight Leg Raise 90 Internal Rotation 10 External Rotation 70 PT-OP-L Special Tests Start: 12/03/24 18:09 Freq: Status: Active Protocol: Document 12/05/24 13:00 LRN (Rec: 12/05/24 13:56 LRN [id number]) Special Tests Lumbar Spine Special Tests Manual Traction Test Results - Comments No change with R LE pain Straight Leg Raise Test Results - Comments Mikael is 90 deg's w/o LE pain onset Slump Test Results - bilaterally Comments No change in sensation or pain Vertical Spine Loading Test Results - Comments No change in symptoms PT-OP-M Strength Start: 12/03/24 18:09 Freq: Status: Active Protocol: Document 12/13/24 13:46 LRN (Rec: 12/13/24 14:32 LRN [id number]) Toe Strength Toe Manual Muscle Testing Left Great Toe Flexion 4+ Good+ Comments Pt is not able to perform MTP, PIP or DIP flexion Right Great Toe Flexion 5 Normal Comments Pt is not able to perform MTP, PIP or DIP flexion PT-OP-Q Treatments Start: 12/03/24 18:09 Freq: Status: Active Protocol: Document 12/13/24 13:46 LRN (Rec: 12/13/24 14:32 LRN [id number]) Therapeutic Exercises Supine Exercises T/S ext Supine Exercise Name Mikael Arm lifts for T/S ext with Lower L/S in neutral w/phys c 's to UB/LB. Reps/Minutes 2-3 SH x 15-20 (7') Comments Cued to keep L3-L4 from extending & to get T/S ext w/ breathing NS/Heel Slides Side bilateral Reps/Minutes 3' Comments Cued to not move back. NS training Supine Exercise Name Training for abdominal bracing , & trunk ext to counteract for NS positionin Reps/Minutes 10' Comments Much educ in spinal anatomy and positioning needed to do ex correctly Iliopsoas stretch Supine Exercise Name HEP Alt arm leg lifts Supine Exercise Name Reviewed Hamstring stretch Supine Exercise Name HEP Piriformis stretch Supine Exercise Name HEP: Legs crossed>KTC, Cued same side at a time. Side right Reps/Minutes 10 SH x 6 R, x3 L DKTC Supine Exercise Name HEP Reps/Minutes 10SH x 3 Comments Stretch felt in LB Cued to do all on same side at a time. SKTC Supine Exercise Name HEP Side bilateral Reps/Minutes 10 SH x 3 Comments Cramp in the R leg behind the knee after 4th rep, so stopped to do DKTC Therapeutic Activity Therapeutic Activity Transfer training Name Sup <> Sit w/log roll technique Reps/Minutes 10' Comments VC's given as pt was doing sit up type transfer. Educated pt during transfer on anatomy of spine and best practice transfer for spinal stabilization. PT-OP-T Assessment and Plan Start: 12/03/24 18:09 Freq: Status: Active Protocol: Document 12/13/24 13:46 LRN (Rec: 12/13/24 14:32 LRN [id number]) Physical Therapy Assessment Goals Three Impairment Pain and clumsiness of R LE with walking Short Term Goal (STG) Improve R LE strength with pt able to walk with reported less clumsiness. STG Duration 01/20/25 Neuropsychology Service Director Goal (LTG) Modify walking gait and time as needed to eliminate R LE pain walking. LTG Duration 03/03/25 Two Impairment Decreased gait stability Short Term Goal (STG) Improve balance to decrease swerving with gait. STG Duration 01/20/25 Neuropsychology Service Director Goal (LTG) Improve gait stability to remove swerving and akward leg spasms while walking. LTG Duration 03/03/25 One Impairment Pt lacks appropriate self are home exercise program (HEP) Short Term Goal (STG) Pt will be able to participate in a self care corner balance HEP. STG Duration 01/20/25 Retirement Goal (LTG) Pt will be independent on a self care HEP to improve core & R LE strength. 12/08/24: Modified ex to increase to 6 reps and placed trunk rot on hold. LTG Duration 03/03/25 progressed 12/08/24 Assessment Summary Assessment 84 yo female w/Lumbar disc herniation with chronic R LE sciatic pain (including R LBP first in AM), multi-level disc bulges and multilevel central canal stenosis in L/S; areas of both retro- and reuben- listhesis with lumbar shift L as expected. Today, pt demonstrates good knowledge of her HEP. L Big toe ext is weak, R big toe ext is 5/5. Good sign of inc'd R LBP but decr'd thigh pain, although numbness is still present in ball of feet (R>L). Pt body mechanics for transfer is poor . She appears to do gardening with bending over with straight legs; therefore putting excessive strain on the LB. Further body mechanics training is needed to be reviewed. Physical Therapy Plan Frequency and Duration Frequency of Treatment 2x/Week Duration of treatment (weeks) 12 Plan of Care Start Date 12/05/24 Plan of Care End Date 03/03/25 Next Visit Focus/Plan Next Note Type Treatment Note Next Visit Plan Next: Review body mechanics and LB stress in different postures. Assess trunk ROM, assess & start balance trainng . Assess need for gentle sacral balancing for LBP reduction (note: osteoporosis & anteriolisthesis). Initiate Lincoln T/S extension ex's with caution due to Grade 1 anterolisthesis of L3 on L4 (note: retrolisthesis at L1 on L2, L2 on L3 and L5 on S1). MH/IFES of L/S. Ther Ex: Hip stretches, LE strengthening, when pain reduced, progress to Core stab . Pt education: Posture & body mechanics ADLs.
--- NOTE | 2024-12-16 16:31 | PT.OTN ---
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 History of Current Condition Insidious onset of tingling in RLE and was given Vit D that didn't help. 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 Her PCP (Dr He) referred her to have an EMG and states her problem was not determined to be neurological, but coming from the spine. Early Jul [address] Hampton and had a cortisone injection in spine ~August 2024, with no change in symptoms. Just this morning she had a 2nd accupuncture appt by Dr. Castanon, and no long has the needles/pins feeling so he is now being referred to physical therapy. The R LE symptom is now a dull annoying achy pain , worst pain is behind the knee. She is able to sleep on her back or L side. R sidelie is uncomfortable due to R hip pain. Walking, pt feels like a rubber band is under the R foot all the way to the hip. When stepping feels like something is lifting it that she isn't controlling and she just follows her leg. She states her spouse says her R leg swings around (circumducts) walking. Prior Treatments and Tests Pt reports prior Accupuncture appts x 2, by Dr. Castanon. MRI 07/02/24 of L/S: mild levoscoliosis centered at L2, mild retrolisthesis of L1 on L2 and L2 on L3, Grade 1 anterolisthesis of L3 on L4, mild of L5 on S1. Multilevel disc bulge and desiccation and multilevel central canal stenosis in the lumbar spine. Active small Schmorl's node at inferior endplate of T11. Future Testing and Treatments Planned Next Dr. Castanon accupuncture appt is 12/16/24. Treatment Goals Patient/Caregiver Goals Pt goals: - Eliminate R LE pain to go for walk w/o having akward leg spasms. - Remove the clumsiness/ swerving while walking and ache in R LE. - agreeable to a HEP. Personal Factors Other Personal Factors That May Effect SOB from Pulmonary Fibrosis, Therapy/Recovery Thyroid disorder, Used to walk daily, States few months ago in pulmonary rehab she exercised 90 minutes including walking 3x/wk (12 wks). PT-OP-C Subjective Start: 12/03/24 18:09 Freq: Status: Active Protocol: Document 12/16/24 14:34 AB (Rec: 12/16/24 16:30 AB [id number]) OP-PT Subjective Patient Comments Patient Comments Patient comments she is doing her exercises, comments she is the same. Patient rates L knee to ankle pain 3/10 back pain 1/10. sit to stand quad dom pattern increased LS ext to reach upright & inc hip add . Pt transfers sit to supine reverse sit up, supine to sit with a sit up. PT-OP-G Mobility & Gait Start: 12/03/24 18:09 Freq: Status: Active Protocol: Document 12/05/24 13:00 LRN (Rec: 12/05/24 13:56 LRN [id number]) OP Gait Assessment Gait Gait Assistance Required: Independent Able to Maintain Weight Bearing Status Yes During Gait Assistive Devices Assistive Device None Gait Deviations General Gait Pattern Decreased Stride Length, Decreased Feet Clearance Factors Limiting Gait Function Factors Limiting Gait Function Incoordination,Pain Comments Gait Comments Occasional swinging out of R LE during swing through phase. PT-OP-H Neuro Start: 12/03/24 18:09 Freq: Status: Active Protocol: Document 12/05/24 13:00 LRN (Rec: 12/05/24 13:56 LRN [id number]) Sensation Evaluation Gross Sensation Gross Sensation WNL Deep Tendon Reflex & Clonus Assessment Deep Tendon Reflex Left Achilles Deep Tendon Reflex 2+ Normal Right Achilles Deep Tendon Reflex 3+ Normal But Brisk Bilateral Patellar Deep Tendon Reflex 3+ Normal But Brisk PT-OP-J Posture/Palpation/Skin Start: 12/03/24 18:09 Freq: Status: Active Protocol: Document 12/05/24 13:00 LRN (Rec: 12/05/24 13:56 LRN [id number]) Posture Evaluation Position Standing Head/C-Spine Posture Side Bent Left,Forward Head L-Spine Posture Shifted Left Shoulder Posture (R) Elevated Arm Posture (L) Internally Rotated,(R) Internally Rotated Pelvis Posture (R) Iliac Crest Superior,(L) PSIS Posterior Hip Posture (L) Externally Rotated Ankle/Foot Posture (L) Calcaneal Inversion Palpation Assessment Location R LE Palpation Location Normal sensation without pain complaints Low back Palpation Location R SIJ, gluteals Palpation Findings Tenderness PT-OP-K Range of Motion Start: 12/03/24 18:09 Freq: Status: Active Protocol: Document 12/08/24 14:34 LRN (Rec: 12/08/24 15:42 LRN [id number]) Hip Goniometric Range of Motion Hip Right Passive Testing Position Supine Straight Leg Raise 90 Internal Rotation 30 External Rotation 65 Left Passive Testing Position Supine Straight Leg Raise 90 Internal Rotation 10 External Rotation 70 PT-OP-L Special Tests Start: 12/03/24 18:09 Freq: Status: Active Protocol: Document 12/05/24 13:00 LRN (Rec: 12/05/24 13:56 LRN [id number]) Special Tests Lumbar Spine Special Tests Manual Traction Test Results - Comments No change with R LE pain Straight Leg Raise Test Results - Comments Mikael is 90 deg's w/o LE pain onset Slump Test Results - bilaterally Comments No change in sensation or pain Vertical Spine Loading Test Results - Comments No change in symptoms PT-OP-M Strength Start: 12/03/24 18:09 Freq: Status: Active Protocol: Document 12/13/24 13:46 LRN (Rec: 12/13/24 14:32 LRN [id number]) Toe Strength Toe Manual Muscle Testing Left Great Toe Flexion 4+ Good+ Comments Pt is not able to perform MTP, PIP or DIP flexion Right Great Toe Flexion 5 Normal Comments Pt is not able to perform MTP, PIP or DIP flexion PT-OP-Q Treatments Start: 12/03/24 18:09 Freq: Status: Active Protocol: Document 12/16/24 14:34 AB (Rec: 12/16/24 16:30 AB [id number]) Therapeutic Exercises Sitting Exercises seated hip abd with band Resistance level 3 band Reps/Minutes one minute X 1 Comments for glute med activation Standing Exercises sit to stand with band Standing Exercise Name Raised seat height and with UE use Side bilateral Resistance level 3 band Reps/Minutes X10 Comments verbal cues to keep tension on band and for hip hinge Therapeutic Activity Therapeutic Activity household tasks Name vacuuming, standing at sink Reps/Minutes 9 min Comments Verbal, visual cues, Patient ed rationale of techniques. good return demonstration. Log roll Reps/Minutes 10 min Comments verbal and visual cues, multiple repetitions. sit to stand with UE use Reps/Minutes 11 min Comments Patient ed mechanics of sit to stand using spine model, verbal and visual cues and patient ed self tactile cues for hip hinge. Patient able to perform with good tech performing 4 trials during training from raised seat height Neuro Re-Education Treatment Balance Activities step up taps Details CGA without UE use Equipment scale Reps/Duration one minute SLS Details CGA Surface floor Reps/Duration X6 Comments without UE use R LE PT-OP-T Assessment and Plan Start: 12/03/24 18:09 Freq: Status: Active Protocol: Document 12/16/24 14:34 AB (Rec: 12/16/24 16:30 AB [id number]) Physical Therapy Assessment Goals Three Impairment Pain and clumsiness of R LE with walking Short Term Goal (STG) 12/16/2024 Patient reports she feels slighlty less clumsy with ambulation, feels like right leg is moving straighter . STG Duration 01/20/25 Penitentiary Goal (LTG) Modify walking gait and time as needed to eliminate R LE pain walking. LTG Duration 03/03/25 Two Impairment Decreased gait stability Short Term Goal (STG) Improve balance to decrease swerving with gait. STG Duration 01/20/25 Paradi Tender Goal (LTG) Improve gait stability to remove swerving and akward leg spasms while walking. LTG Duration 03/03/25 One Impairment Pt lacks appropriate self are home exercise program (HEP) Short Term Goal (STG) 12/16/2024 Patient reports she is performing HEP every day as reviewed by PT previous sessions. STG Duration 01/20/25 Paradi Tender Goal (LTG) Pt will be independent on a self care HEP to improve core & R LE strength. 12/08/24: Modified ex to increase to 6 reps and placed trunk rot on hold. LTG Duration 03/03/25 progressed 12/08/24 Assessment Summary Assessment Pain is the same right LE end of sesssion per Zayra Burch. SLS inc to 3 sec from one sec right LE without UE use post one min hold seated hip abduction ( glute med activation ) taps Physical Therapy Plan Frequency and Duration Frequency of Treatment 2x/Week Duration of treatment (weeks) 12 Plan of Care Start Date 12/05/24 Plan of Care End Date 03/03/25 Next Visit Focus/Plan Next Note Type Treatment Note Next Visit Plan Next: Review body mechanics and LB stress in different postures. Assess trunk ROM, assess/possibly TUG or FGA ( SLS assessed last session ) & progress balance trainng/ review seated hip abd with band. Assess need for gentle sacral balancing for LBP reduction (note: osteoporosis & anteriolisthesis). Initiate Lincoln T/S extension ex's with caution due to Grade 1 anterolisthesis of L3 on L4 (note: retrolisthesis at L1 on L2, L2 on L3 and L5 on S1). MH/IFES of L/S. Ther Ex: Hip stretches, LE strengthening, when pain reduced, progress to Core stab . Pt education: Posture & Review log roll/sit to stand as needed, and continue body mechanics ( washing dishes and vacuuming addressed ) ADLs.
--- NOTE | 2024-12-20 14:59 | PT.OTN ---
Current Diagnoses Other chronic pain (12/20/24) Spondylosis without myelopathy or radiculopathy, lumbar region (12/20/24) Radiculopathy, lumbar region (12/20/24) Low back pain, unspecified (12/20/24) Physical Therapy Treatment Note PT-OP-A Visit Information Start: 12/03/24 18:09 Freq: Status: Active Protocol: Document 12/20/24 13:45 LRN (Rec: 12/20/24 14:43 LRN [id number]) Out-Patient Physical Therapy Visit Information Visit Information Visit Type Treatment Note Visit Start Time 13:45 Visit Stop Time 14:26 Visit Number 5 Evaluation Information Evaluation Date 12/05/24 Precautions Precautions Per intake form: Osteoporosis , SOB from pulmonary fibrosis, twisted bowel, breast implant . PT-OP-B Current Condition Start: 12/03/24 18:09 Freq: Status: Active Protocol: Document 12/05/24 13:00 LRN (Rec: 12/05/24 13:56 LRN [id number]) Current Condition History of Current Condition Onset Date 2 yrs ago Current Complaints R LE is now dull, annoying, achy pain, with worst part behind the knee. History of Current Condition Insidious onset of tingling in RLE and was given Vit D that didn't help. 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 Her PCP (Dr He) referred her to have an EMG and states her problem was not determined to be neurological, but coming from the spine. Early Jul [address] Hampton and had a cortisone injection in spine ~August 2024, with no change in symptoms. Just this morning she had a 2nd accupuncture appt by Dr. Castanon, and no long has the needles/pins feeling so he is now being referred to physical therapy. The R LE symptom is now a dull annoying achy pain , worst pain is behind the knee. She is able to sleep on her back or L side. R sidelie is uncomfortable due to R hip pain. Walking, pt feels like a rubber band is under the R foot all the way to the hip. When stepping feels like something is lifting it that she isn't controlling and she just follows her leg. She states her spouse says her R leg swings around (circumducts) walking. Prior Treatments and Tests Pt reports prior Accupuncture appts x 2, by Dr. Castanon. MRI 07/02/24 of L/S: mild levoscoliosis centered at L2, mild retrolisthesis of L1 on L2 and L2 on L3, Grade 1 anterolisthesis of L3 on L4, mild of L5 on S1. Multilevel disc bulge and desiccation and multilevel central canal stenosis in the lumbar spine. Active small Schmorl's node at inferior endplate of T11. Future Testing and Treatments Planned Next Dr. Castanon accupuncture appt is 12/16/24. Treatment Goals Patient/Caregiver Goals Pt goals: - Eliminate R LE pain to go for walk w/o having akward leg spasms. - Remove the clumsiness/ swerving while walking and ache in R LE. - agreeable to a HEP. Personal Factors Other Personal Factors That May Effect SOB from Pulmonary Fibrosis, Therapy/Recovery Thyroid disorder, Used to walk daily, States few months ago in pulmonary rehab she exercised 90 minutes including walking 3x/wk (12 wks). PT-OP-C Subjective Start: 12/03/24 18:09 Freq: Status: Active Protocol: Document 12/20/24 13:45 LRN (Rec: 12/20/24 14:43 LRN [id number]) OP-PT Subjective Patient Comments Patient Comments No changes. No leg pain today. With heel slide ex pt c/o pain in anterior hip joint, but no pain at end of therapy. PT-OP-G Mobility & Gait Start: 12/03/24 18:09 Freq: Status: Active Protocol: Document 12/05/24 13:00 LRN (Rec: 12/05/24 13:56 LRN [id number]) OP Gait Assessment Gait Gait Assistance Required: Independent Able to Maintain Weight Bearing Status Yes During Gait Assistive Devices Assistive Device None Gait Deviations General Gait Pattern Decreased Stride Length, Decreased Feet Clearance Factors Limiting Gait Function Factors Limiting Gait Function Incoordination,Pain Comments Gait Comments Occasional swinging out of R LE during swing through phase. PT-OP-H Neuro Start: 12/03/24 18:09 Freq: Status: Active Protocol: Document 12/05/24 13:00 LRN (Rec: 12/05/24 13:56 LRN [id number]) Sensation Evaluation Gross Sensation Gross Sensation WNL Deep Tendon Reflex & Clonus Assessment Deep Tendon Reflex Left Achilles Deep Tendon Reflex 2+ Normal Right Achilles Deep Tendon Reflex 3+ Normal But Brisk Bilateral Patellar Deep Tendon Reflex 3+ Normal But Brisk PT-OP-J Posture/Palpation/Skin Start: 12/03/24 18:09 Freq: Status: Active Protocol: Document 12/05/24 13:00 LRN (Rec: 12/05/24 13:56 LRN [id number]) Posture Evaluation Position Standing Head/C-Spine Posture Side Bent Left,Forward Head L-Spine Posture Shifted Left Shoulder Posture (R) Elevated Arm Posture (L) Internally Rotated,(R) Internally Rotated Pelvis Posture (R) Iliac Crest Superior,(L) PSIS Posterior Hip Posture (L) Externally Rotated Ankle/Foot Posture (L) Calcaneal Inversion Palpation Assessment Location R LE Palpation Location Normal sensation without pain complaints Low back Palpation Location R SIJ, gluteals Palpation Findings Tenderness PT-OP-K Range of Motion Start: 12/03/24 18:09 Freq: Status: Active Protocol: Document 12/08/24 14:34 LRN (Rec: 12/08/24 15:42 LRN [id number]) Hip Goniometric Range of Motion Hip Right Passive Testing Position Supine Straight Leg Raise 90 Internal Rotation 30 External Rotation 65 Left Passive Testing Position Supine Straight Leg Raise 90 Internal Rotation 10 External Rotation 70 PT-OP-L Special Tests Start: 12/03/24 18:09 Freq: Status: Active Protocol: Document 12/05/24 13:00 LRN (Rec: 12/05/24 13:56 LRN [id number]) Special Tests Lumbar Spine Special Tests Manual Traction Test Results - Comments No change with R LE pain Straight Leg Raise Test Results - Comments Mikael is 90 deg's w/o LE pain onset Slump Test Results - bilaterally Comments No change in sensation or pain Vertical Spine Loading Test Results - Comments No change in symptoms PT-OP-M Strength Start: 12/03/24 18:09 Freq: Status: Active Protocol: Document 12/13/24 13:46 LRN (Rec: 12/13/24 14:32 LRN [id number]) Toe Strength Toe Manual Muscle Testing Left Great Toe Flexion 4+ Good+ Comments Pt is not able to perform MTP, PIP or DIP flexion Right Great Toe Flexion 5 Normal Comments Pt is not able to perform MTP, PIP or DIP flexion PT-OP-Q Treatments Start: 12/03/24 18:09 Freq: Status: Active Protocol: Document 12/20/24 13:45 LRN (Rec: 12/20/24 14:43 LRN [id number]) Therapeutic Exercises Supine Exercises T/S ext Supine Exercise Name Mikael Arm lifts for T/S ext with Lower L/S in neutral w/phys c 's to UB/LB. Reps/Minutes 2-3 SH x 15 Comments Cued to keep neutral spine & to get T/S ext w/breath. NS/Heel Slides Side bilateral Reps/Minutes 12x R, 24 L Comments Cued to not exercise into pain . NS training Supine Exercise Name Reviewed with use of handout for the sequence to achieve Neutral Spine. Reps/Minutes 3' Hamstring stretch Side bilateral Reps/Minutes 5 SH x 6 Piriformis stretch Supine Exercise Name HEP: Legs crossed>KTC, Cued same side at a time, focus R hip. Side bilateral Reps/Minutes 10 SH x 7 bilaterally DKTC Reps/Minutes 10 SH x 6 SKTC Side bilateral Reps/Minutes 10SH x 7 each Therapeutic Activity Therapeutic Activity household tasks Name Reviewed Do's & Don'ts for ADLs. Reps/Minutes 8' Comments Discussed positions for ADLs as modified due to pt's tall stature. sit to stand with UE use Name Reviewed Reps/Minutes 2' min Comments Verbal and visual cues given. Patient able to perform with good tech from [facility] in 90/90 positioning. Transfer training Name Reviewd Sit <> R sidelye > Sup w/log roll technique Reps/Minutes 5' Comments Pt needed cuing to start as she was lying down in reverse sit up mode. Neuro Re-Education Treatment Balance Activities SLS Details SLS in corner Surface floor Reps/Duration 1' each leg Comments Without UE use and encouraged pt to fight for the balance. Extra time for I/S in how to do safely using mota for support. Self-Care/Home Management Treatment Activities Self-Care/Home Management Activities Reviewed and Issued Handouts: Body mechanics Basics and for Daily activities, and for log roll transfer. Reviewed & Issued HEP: LB program: Neutral spine ( Pelvic Tilt, TA, Mutifidi), Heel slides, Heel slides & SLR . PT-OP-T Assessment and Plan Start: 12/03/24 18:09 Freq: Status: Active Protocol: Document 12/20/24 13:45 LRN (Rec: 12/20/24 14:43 LRN [id number]) Physical Therapy Assessment Goals Three Impairment Pain and clumsiness of R LE with walking Short Term Goal (STG) Improve R LE strength with pt able to walk with reported less clumsiness. 12/16/2024 Patient reports she feels slighlty less clumsy with ambulation, feels like right leg is moving straighter . STG Duration 01/20/25 Fpc Goal (LTG) Modify walking gait and time as needed to eliminate R LE pain walking. LTG Duration 03/03/25 Two Impairment Decreased gait stability Short Term Goal (STG) Improve balance to decrease swerving with gait. STG Duration 01/20/25 Fpc Goal (LTG) Improve gait stability to remove swerving and akward leg spasms while walking. LTG Duration 03/03/25 One Impairment Pt lacks appropriate self are home exercise program (HEP) Short Term Goal (STG) Pt will be able to participate in a self care corner balance HEP. 12/16/2024 Patient reports she is performing HEP every day as reviewed by PT previous sessions. 12/20/24: Initiated corner balance SLS ex. STG Duration 01/20/25 progressed 12/20/24 Fpc Goal (LTG) Pt will be independent on a self care HEP to improve core & R LE strength. 12/08/24: Modified ex to increase to 6 reps and placed trunk rot on hold. 12/20/24: HEP: LB program: Neutral spine (Pelvic Tilt, TA , Mutifidi), Heel slides, Heel slides & SLR. Issued Handouts: Body mechanics Basics and for Daily activities, and for log roll transfer. LTG Duration 03/03/25 progressed 12/20/24 Assessment Summary Assessment 84 yo female w/Lumbar disc herniation with chronic R LE sciatic pain (including R LBP first in AM), multi-level disc bulges and multilevel central canal stenosis in L/S; areas of both retro- and reuben- listhesis with lumbar shift L as expected. Today pt demonstrates + attitude towards body mechanics training and education and is able to perform her HEP, with exception of neutral spine (NS ) ex of heel slide, as pt did not have a handout; therefore handout was issued. Pt having R lateral thigh pain when lying on her R side from pressure on the hip. Physical Therapy Plan Frequency and Duration Frequency of Treatment 2x/Week Duration of treatment (weeks) 12 Plan of Care Start Date 12/05/24 Plan of Care End Date 03/03/25 Next Visit Focus/Plan Next Note Type Treatment Note Next Visit Plan Next: Review body mechanics and LB stress in different postures. Assess trunk ROM, assess/possibly TUG or FGA ( SLS assessed last session ) & progress balance trainng if pt able to hold neutral spine. Review seated hip abd with band and strengthen LE's. Assess need for gentle sacral balancing (caution: osteoporosis & anteriolisthesis) for LBP reduction. Initiate Lincoln T/S extension ex's with caution due to Grade 1 anterolisthesis of L3 on L4 (note: retrolisthesis at L1 on L2, L2 on L3 and L5 on S1). MH/IFES of L/S. Ther Ex: Hip stretches, LE strengthening, when pain reduced, progress to Core stab . Pt education: Posture & Review log roll/sit to stand as needed, and continue body mechanics ( washing dishes and vacuuming addressed ) ADLs.
--- NOTE | 2024-12-23 18:24 | PT.OTN ---
Current Diagnoses Other chronic pain (12/23/24) Spondylosis without myelopathy or radiculopathy, lumbar region (12/23/24) Radiculopathy, lumbar region (12/23/24) Low back pain, unspecified (12/23/24) Physical Therapy Treatment Note PT-OP-A Visit Information Start: 12/03/24 18:09 Freq: Status: Active Protocol: Document 12/23/24 11:49 NBM (Rec: 12/23/24 13:12 NBM [id number]) Out-Patient Physical Therapy Visit Information Visit Information Visit Type Treatment Note Visit Start Time 11:38 Visit Stop Time 12:27 Visit Number 6 Number of CURRICULUM DESIGNER Visits 1 Evaluation Information Evaluation Date 12/05/24 Precautions Precautions Per intake form: Osteoporosis , SOB from pulmonary fibrosis, twisted bowel, breast implant . PT-OP-B Current Condition Start: 12/03/24 18:09 Freq: Status: Active Protocol: Document 12/05/24 13:00 LRN (Rec: 12/05/24 13:56 LRN [id number]) Current Condition History of Current Condition Onset Date 2 yrs ago Current Complaints R LE is now dull, annoying, achy pain, with worst part behind the knee. History of Current Condition Insidious onset of tingling in RLE and was given Vit D that didn't help. 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 Her PCP (Dr He) referred her to have an EMG and states her problem was not determined to be neurological, but coming from the spine. Early Jul [address] Hampton and had a cortisone injection in spine ~August 2024, with no change in symptoms. Just this morning she had a 2nd accupuncture appt by Dr. Castanon, and no long has the needles/pins feeling so he is now being referred to physical therapy. The R LE symptom is now a dull annoying achy pain , worst pain is behind the knee. She is able to sleep on her back or L side. R sidelie is uncomfortable due to R hip pain. Walking, pt feels like a rubber band is under the R foot all the way to the hip. When stepping feels like something is lifting it that she isn't controlling and she just follows her leg. She states her spouse says her R leg swings around (circumducts) walking. Prior Treatments and Tests Pt reports prior Accupuncture appts x 2, by Dr. Castanon. MRI 07/02/24 of L/S: mild levoscoliosis centered at L2, mild retrolisthesis of L1 on L2 and L2 on L3, Grade 1 anterolisthesis of L3 on L4, mild of L5 on S1. Multilevel disc bulge and desiccation and multilevel central canal stenosis in the lumbar spine. Active small Schmorl's node at inferior endplate of T11. Future Testing and Treatments Planned Next Dr. Castanon accupuncture appt is 12/16/24. Treatment Goals Patient/Caregiver Goals Pt goals: - Eliminate R LE pain to go for walk w/o having akward leg spasms. - Remove the clumsiness/ swerving while walking and ache in R LE. - agreeable to a HEP. Personal Factors Other Personal Factors That May Effect SOB from Pulmonary Fibrosis, Therapy/Recovery Thyroid disorder, Used to walk daily, States few months ago in pulmonary rehab she exercised 90 minutes including walking 3x/wk (12 wks). PT-OP-C Subjective Start: 12/03/24 18:09 Freq: Status: Active Protocol: Document 12/23/24 11:49 NBM (Rec: 12/23/24 13:12 [facility] [id number]) OP-PT Subjective Patient Comments Patient Comments Zayra reports R foot numbness and R lower leg pain since waking up today, R leg feels clumsy. She noticed from handouts that she was vacuuming incorrectly so is more mindful. Spreading legs to do dishes doesn't work because she has taller counters 36. Pt reports when she first gets into bed sometimes (going from upright to lying down), her feet get annoyingly hot and she has to kick blankets off; last night she even got an ice block. It lasts about 20-30 minutes before feet cool down enough to fall asleep and doctors are aware as it's been happening a few years. It's been happening off and on a long time, before I had a back problem. PT-OP-G Mobility & Gait Start: 12/03/24 18:09 Freq: Status: Active Protocol: Document 12/05/24 13:00 LRN (Rec: 12/05/24 13:56 LRN [id number]) OP Gait Assessment Gait Gait Assistance Required: Independent Able to Maintain Weight Bearing Status Yes During Gait Assistive Devices Assistive Device None Gait Deviations General Gait Pattern Decreased Stride Length, Decreased Feet Clearance Factors Limiting Gait Function Factors Limiting Gait Function Incoordination,Pain Comments Gait Comments Occasional swinging out of R LE during swing through phase. PT-OP-H Neuro Start: 12/03/24 18:09 Freq: Status: Active Protocol: Document 12/05/24 13:00 LRN (Rec: 12/05/24 13:56 LRN [id number]) Sensation Evaluation Gross Sensation Gross Sensation WNL Deep Tendon Reflex & Clonus Assessment Deep Tendon Reflex Left Achilles Deep Tendon Reflex 2+ Normal Right Achilles Deep Tendon Reflex 3+ Normal But Brisk Bilateral Patellar Deep Tendon Reflex 3+ Normal But Brisk PT-OP-J Posture/Palpation/Skin Start: 12/03/24 18:09 Freq: Status: Active Protocol: Document 12/05/24 13:00 LRN (Rec: 12/05/24 13:56 LRN [id number]) Posture Evaluation Position Standing Head/C-Spine Posture Side Bent Left,Forward Head L-Spine Posture Shifted Left Shoulder Posture (R) Elevated Arm Posture (L) Internally Rotated,(R) Internally Rotated Pelvis Posture (R) Iliac Crest Superior,(L) PSIS Posterior Hip Posture (L) Externally Rotated Ankle/Foot Posture (L) Calcaneal Inversion Palpation Assessment Location R LE Palpation Location Normal sensation without pain complaints Low back Palpation Location R SIJ, gluteals Palpation Findings Tenderness PT-OP-K Range of Motion Start: 12/03/24 18:09 Freq: Status: Active Protocol: Document 12/08/24 14:34 LRN (Rec: 12/08/24 15:42 LRN [id number]) Hip Goniometric Range of Motion Hip Right Passive Testing Position Supine Straight Leg Raise 90 Internal Rotation 30 External Rotation 65 Left Passive Testing Position Supine Straight Leg Raise 90 Internal Rotation 10 External Rotation 70 PT-OP-L Special Tests Start: 12/03/24 18:09 Freq: Status: Active Protocol: Document 12/05/24 13:00 LRN (Rec: 12/05/24 13:56 LRN [id number]) Special Tests Lumbar Spine Special Tests Manual Traction Test Results - Comments No change with R LE pain Straight Leg Raise Test Results - Comments Mikael is 90 deg's w/o LE pain onset Slump Test Results - bilaterally Comments No change in sensation or pain Vertical Spine Loading Test Results - Comments No change in symptoms PT-OP-M Strength Start: 12/03/24 18:09 Freq: Status: Active Protocol: Document 12/13/24 13:46 LRN (Rec: 12/13/24 14:32 LRN [id number]) Toe Strength Toe Manual Muscle Testing Left Great Toe Flexion 4+ Good+ Comments Pt is not able to perform MTP, PIP or DIP flexion Right Great Toe Flexion 5 Normal Comments Pt is not able to perform MTP, PIP or DIP flexion PT-OP-Q Treatments Start: 12/03/24 18:09 Freq: Status: Active Protocol: Document 12/23/24 11:49 NBM (Rec: 12/23/24 13:12 NBM [id number]) Therapeutic Exercises Supine Exercises T/S ext Supine Exercise Name Mikael Arm lifts for T/S ext with Lower L/S in neutral w/phys c 's to UB/LB. Equipment Used self-monitoring neutral spine medial to ASIS Reps/Minutes 2-3 SH x 15 Comments Cued to keep neutral spine & to get T/S ext w/breath. NS/Heel Slides Supine Exercise Name w/ breathwork Side bilateral Equipment Used self-monitoring TrA medial to ASIS Reps/Minutes 12x R, 24 L Comments painfree NS training Supine Exercise Name Reviewed with use of handout for the sequence to achieve Neutral Spine. DKTC Reps/Minutes 10 SH (~5 breath cycles) x 6 SKTC Side bilateral Reps/Minutes 10SH (~5 breath cycles) x 5 each Sitting Exercises seated hip abd with band Resistance level 3 band Reps/Minutes x10 Comments cues for TrA and breathwork. Standing Exercises sit to stand with band Standing Exercise Name Standard height with UE use > Raised height w/ thigh support > no UE use Side bilateral Resistance level 3 band> no band Equipment Used GB, standard mesh chair, 2 foam Reps/Minutes X10 ea Comments visual cues for hip hinge, verbal cues for foot placement and LE alignment Self-Care/Home Management Treatment Education Patient Education Body Mechanics,Home Exercise Program,Posture Other Education Edu to pt re: Transverse abdominis m. anatomy and activitation w/ visual aids, interrelationship w/ diaphragm and pelvic floor, and importance of not breathholding to improve core recruitment. -edu re: self-monitoring TrA m . activation medial to ASIS w/ breath. PT-OP-T Assessment and Plan Start: 12/03/24 18:09 Freq: Status: Active Protocol: Document 12/23/24 11:49 NBM (Rec: 12/23/24 13:12 NBM [id number]) Physical Therapy Assessment Goals Three Impairment Pain and clumsiness of R LE with walking Short Term Goal (STG) Improve R LE strength with pt able to walk with reported less clumsiness. 12/16/2024 Patient reports she feels slighlty less clumsy with ambulation, feels like right leg is moving straighter . 12/23/2024 Pt reports awakening w/ increased R foot numbness which improves throughout treatment session today. It's waking back up. STG Duration 01/20/25 Anchor Operator Goal (LTG) Modify walking gait and time as needed to eliminate R LE pain walking. LTG Duration 03/03/25 Two Impairment Decreased gait stability Short Term Goal (STG) Improve balance to decrease swerving with gait. STG Duration 01/20/25 Mcfp Goal (LTG) Improve gait stability to remove swerving and akward leg spasms while walking. LTG Duration 03/03/25 One Impairment Pt lacks appropriate self are home exercise program (HEP) Short Term Goal (STG) Pt will be able to participate in a self care corner balance HEP. 12/16/2024 Patient reports she is performing HEP every day as reviewed by PT previous sessions. 12/20/24: Initiated corner balance SLS ex. STG Duration 01/20/25 progressed 12/20/24 Mcfp Goal (LTG) Pt will be independent on a self care HEP to improve core & R LE strength. 12/08/24: Modified ex to increase to 6 reps and placed trunk rot on hold. 12/20/24: HEP: LB program: Neutral spine (Pelvic Tilt, TA , Mutifidi), Heel slides, Heel slides & SLR. Issued Handouts: Body mechanics Basics and for Daily activities, and for log roll transfer. LTG Duration 03/03/25 progressed 12/20/24 Assessment Summary Assessment Treatment focus on Body mechanics and supine HEP review, and education for TrA self-monitoring for improved recruitment with breathwork; Zayra's self-awareness for TrA recruitment improves. Pt demonstrates correct mechanics for log roll transfer without cueing. She continues to demonstrate excessive knee valgus for sit to stand w and wo theraband above knees, and is unable to stand from standard height chair without Upper extremity support. She is able to perform Sit to Stand wo upper extremity support w/ addition of 2 foam cushion and demonstrates improved hip hinge and eccentric control w/ cues but still has excessive knee valgus bilaterally. Reviewed Body Mechanics HO for Daily Activities and pt is edu to place one foot up on ledge or step for standing at the sink as she has customized counters for her height and did not find spreading feet helpful. Pt reports R foot numbness present upon waking this morning improves throughout treatment session. Physical Therapy Plan Frequency and Duration Frequency of Treatment 2x/Week Duration of treatment (weeks) 12 Plan of Care Start Date 12/05/24 Plan of Care End Date 03/03/25 Therapeutic Interventions Therapeutic Interventions Balance Training,Gait Training ,Home Exercise Program, Neuromuscular Re-education, Self-Care/Home Management,Soft Tissue Mobilization, Therapeutic Activities, Therapeutic Exercises Modalities Cold Pack/Ice Massage,Electric Stimulation,Hot Packs Other Therapeutic Interventions Gentle manual therapy. Next Visit Focus/Plan Next Note Type Treatment Note Next Visit Plan Next: Review LB stress in different postures. Assess trunk ROM, assess/possibly TUG or FGA ( SLS assessed last session ) & progress balance trainng if pt able to hold neutral spine. Strengthen LE' s. Assess need for gentle sacral balancing (caution: osteoporosis & anteriolisthesis) for LBP reduction. Initiate Lincoln T/S extension ex's with caution due to Grade 1 anterolisthesis of L3 on L4 (note: retrolisthesis at L1 on L2, L2 on L3 and L5 on S1). MH/IFES of L/S. Ther Ex: Hip stretches, LE strengthening, when pain reduced, progress to Core stab . Pt education: Posture & Review log roll/sit to stand as needed, and continue body mechanics (washing dishes and vacuuming addressed) ADLs.
--- NOTE | 2024-12-26 17:47 | PT.OTN ---
Current Diagnoses Other chronic pain (12/26/24) Spondylosis without myelopathy or radiculopathy, lumbar region (12/26/24) Radiculopathy, lumbar region (12/26/24) Low back pain, unspecified (12/26/24) Physical Therapy Treatment Note PT-OP-A Visit Information Start: 12/03/24 18:09 Freq: Status: Active Protocol: Document 12/26/24 13:52 LRN (Rec: 12/26/24 14:35 LRN [id number]) Out-Patient Physical Therapy Visit Information Visit Information Visit Type Treatment Note Visit Start Time 13:53 Visit Stop Time 14:34 Visit Number 7 Evaluation Information Evaluation Date 12/05/24 Precautions Precautions Per intake form: Osteoporosis , SOB from pulmonary fibrosis, twisted bowel, breast implant . PT-OP-B Current Condition Start: 12/03/24 18:09 Freq: Status: Active Protocol: Document 12/05/24 13:00 LRN (Rec: 12/05/24 13:56 LRN [id number]) Current Condition History of Current Condition Onset Date 2 yrs ago Current Complaints R LE is now dull, annoying, achy pain, with worst part behind the knee. History of Current Condition Insidious onset of tingling in RLE and was given Vit D that didn't help. 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 Her PCP (Dr He) referred her to have an EMG and states her problem was not determined to be neurological, but coming from the spine. Early Jul [address] Hampton and had a cortisone injection in spine ~August 2024, with no change in symptoms. Just this morning she had a 2nd accupuncture appt by Dr. Castanon, and no long has the needles/pins feeling so he is now being referred to physical therapy. The R LE symptom is now a dull annoying achy pain , worst pain is behind the knee. She is able to sleep on her back or L side. R sidelie is uncomfortable due to R hip pain. Walking, pt feels like a rubber band is under the R foot all the way to the hip. When stepping feels like something is lifting it that she isn't controlling and she just follows her leg. She states her spouse says her R leg swings around (circumducts) walking. Prior Treatments and Tests Pt reports prior Accupuncture appts x 2, by Dr. Castanon. MRI 07/02/24 of L/S: mild levoscoliosis centered at L2, mild retrolisthesis of L1 on L2 and L2 on L3, Grade 1 anterolisthesis of L3 on L4, mild of L5 on S1. Multilevel disc bulge and desiccation and multilevel central canal stenosis in the lumbar spine. Active small Schmorl's node at inferior endplate of T11. Future Testing and Treatments Planned Next Dr. Castanon accupuncture appt is 12/16/24. Treatment Goals Patient/Caregiver Goals Pt goals: - Eliminate R LE pain to go for walk w/o having akward leg spasms. - Remove the clumsiness/ swerving while walking and ache in R LE. - agreeable to a HEP. Personal Factors Other Personal Factors That May Effect SOB from Pulmonary Fibrosis, Therapy/Recovery Thyroid disorder, Used to walk daily, States few months ago in pulmonary rehab she exercised 90 minutes including walking 3x/wk (12 wks). PT-OP-C Subjective Start: 12/03/24 18:09 Freq: Status: Active Protocol: Document 12/26/24 13:52 LRN (Rec: 12/26/24 14:35 LRN [id number]) OP-PT Subjective Patient Comments Patient Comments No change. R foot is numb and hurts on lateral lower leg. PT-OP-E Functional Tests Start: 12/03/24 18:09 Freq: Status: Active Protocol: Document 12/26/24 13:52 LRN (Rec: 12/26/24 17:26 LRN [id number]) Functional Tests Timed Up and Go (TUG) Score 20 Comments 2nd attempt (first time 22 secs) TUG Impairment Rating 100% Impaired (Score 20) PT-OP-G Mobility & Gait Start: 12/03/24 18:09 Freq: Status: Active Protocol: Document 12/05/24 13:00 LRN (Rec: 12/05/24 13:56 LRN [id number]) OP Gait Assessment Gait Gait Assistance Required: Independent Able to Maintain Weight Bearing Status Yes During Gait Assistive Devices Assistive Device None Gait Deviations General Gait Pattern Decreased Stride Length, Decreased Feet Clearance Factors Limiting Gait Function Factors Limiting Gait Function Incoordination,Pain Comments Gait Comments Occasional swinging out of R LE during swing through phase. PT-OP-H Neuro Start: 12/03/24 18:09 Freq: Status: Active Protocol: Document 12/05/24 13:00 LRN (Rec: 12/05/24 13:56 LRN [id number]) Sensation Evaluation Gross Sensation Gross Sensation WNL Deep Tendon Reflex & Clonus Assessment Deep Tendon Reflex Left Achilles Deep Tendon Reflex 2+ Normal Right Achilles Deep Tendon Reflex 3+ Normal But Brisk Bilateral Patellar Deep Tendon Reflex 3+ Normal But Brisk PT-OP-J Posture/Palpation/Skin Start: 12/03/24 18:09 Freq: Status: Active Protocol: Document 12/05/24 13:00 LRN (Rec: 12/05/24 13:56 LRN [id number]) Posture Evaluation Position Standing Head/C-Spine Posture Side Bent Left,Forward Head L-Spine Posture Shifted Left Shoulder Posture (R) Elevated Arm Posture (L) Internally Rotated,(R) Internally Rotated Pelvis Posture (R) Iliac Crest Superior,(L) PSIS Posterior Hip Posture (L) Externally Rotated Ankle/Foot Posture (L) Calcaneal Inversion Palpation Assessment Location R LE Palpation Location Normal sensation without pain complaints Low back Palpation Location R SIJ, gluteals Palpation Findings Tenderness PT-OP-K Range of Motion Start: 12/03/24 18:09 Freq: Status: Active Protocol: Document 12/26/24 13:52 LRN (Rec: 12/26/24 14:35 LRN [id number]) Lumbar Spine Range of Motion Lumbar Spine Active Degrees Testing Position Standing Flexion 110 Extension 5 Rotation Left 30 Rotation Right 10 Lateral Flexion Left 10 Lateral Flexion Right 7 PT-OP-L Special Tests Start: 12/03/24 18:09 Freq: Status: Active Protocol: Document 12/05/24 13:00 LRN (Rec: 12/05/24 13:56 LRN [id number]) Special Tests Lumbar Spine Special Tests Manual Traction Test Results - Comments No change with R LE pain Straight Leg Raise Test Results - Comments Mikael is 90 deg's w/o LE pain onset Slump Test Results - bilaterally Comments No change in sensation or pain Vertical Spine Loading Test Results - Comments No change in symptoms PT-OP-M Strength Start: 12/03/24 18:09 Freq: Status: Active Protocol: Document 12/13/24 13:46 LRN (Rec: 12/13/24 14:32 LRN [id number]) Toe Strength Toe Manual Muscle Testing Left Great Toe Flexion 4+ Good+ Comments Pt is not able to perform MTP, PIP or DIP flexion Right Great Toe Flexion 5 Normal Comments Pt is not able to perform MTP, PIP or DIP flexion PT-OP-Q Treatments Start: 12/03/24 18:09 Freq: Status: Active Protocol: Document 12/26/24 13:52 LRN (Rec: 12/26/24 14:35 LRN [id number]) Therapeutic Exercises Supine Exercises BKFO Side bilateral Equipment Used Lev 1 TB, tight Reps/Minutes 30x Sitting Exercises seated hip abd with band Resistance level 3 band Reps/Minutes 10x 2 Comments cues for TrA and breathwork. Standing Exercises Trunk AROM Standing Exercise Name Flex, Ext, SB, Rot Side bilateral Reps/Minutes 1x each motion Comments AROM taken SB stretch Standing Exercise Name R trunk SB Side left Reps/Minutes 10 SH x 10 sit to stand with band Standing Exercise Name Standard height with UE use > Raised height w/ thigh support > no UE use Side bilateral Resistance level 2 band Equipment Used GB, plinth up high (knee flexed ~60 deg's) Reps/Minutes 10x 2 Comments visual cues for hip hinge, verbal cues for foot placement and LE alignment Other Exercises 20' walk Equipment Used Gait Belt, webbed chair Reps/Minutes sit>stand x 2, f/b 20'walk x 2 ,with sit rest btn (6') Neuro Re-Education Treatment Balance Activities Corner balance ex's Details Feet together, Tandem stance. Surface Level Equipment Corner & heavy chair, GB. Reps/Duration 17' Comments Sit rest after balance ex. I/S pt should could try as HEP corner ex, if spouse will guard her and she has a solid chair to place in front of her . SLS Details SLS in corner, cued for Neutral spine holding. Surface floor Equipment Corner, heavy chair in front, GB Reps/Duration 6' Comments Without UE use and encouraged pt to fight for the balance. Extra time for I/S in how to do safely using mota for support. PT-OP-T Assessment and Plan Start: 12/03/24 18:09 Freq: Status: Active Protocol: Document 12/26/24 13:52 LRN (Rec: 12/26/24 14:35 LRN [id number]) Physical Therapy Assessment Goals Three Impairment Pain and clumsiness of R LE with walking Short Term Goal (STG) Improve R LE strength with pt able to walk with reported less clumsiness. 12/16/2024 Patient reports she feels slighlty less clumsy with ambulation, feels like right leg is moving straighter . 12/23/2024 Pt reports awakening w/ increased R foot numbness which improves throughout treatment session today. It's waking back up. STG Duration 01/20/25 Superintendent Transmission Goal (LTG) Modify walking gait and time as needed to eliminate R LE pain walking. LTG Duration 03/03/25 Two Impairment Decreased gait stability Short Term Goal (STG) Improve balance to decrease swerving with gait. STG Duration 01/20/25 Superintendent Transmission Goal (LTG) Improve gait stability to remove swerving and akward leg spasms while walking. LTG Duration 03/03/25 One Impairment Pt lacks appropriate self are home exercise program (HEP) Short Term Goal (STG) Pt will be able to participate in a self care corner balance HEP. 12/16/2024 Patient reports she is performing HEP every day as reviewed by PT previous sessions. 12/20/24: Initiated corner balance SLS ex. 12/26/24: Initiated corner tandem stance if spouse can guard pt for safety. STG Duration 01/20/25 progressed 12/26/24 Half-Way Goal (LTG) Pt will be independent on a self care HEP to improve core & R LE strength. 12/08/24: Modified ex to increase to 6 reps and placed trunk rot on hold. 12/20/24: HEP: LB program: Neutral spine (Pelvic Tilt, TA , Mutifidi), Heel slides, Heel slides & SLR. Issued Handouts: Body mechanics Basics and for Daily activities, and for log roll transfer. LTG Duration 03/03/25 progressed 12/20/24 Assessment Summary Assessment 84 yo female w/Lumbar disc herniation with chronic R LE sciatic pain (including R LBP first in AM), multi-level disc bulges and multilevel central canal stenosis in L/S; areas of both retro- and reuben- listhesis with lumbar shift L as expected. Today, TUG is 20 secs indicating pt is 100% impaired safety with gait, Trunk AROM is decreased with R SB/Rot. Her balance is much decreased with Tandem stance worse with L foot behind (1-2 sec hold), and R foot behind ( as much as 15 secs). Pt improved with practice. Pt LE 's appear weak, as she has difficulty sit<>stand w/o use of UE's. Physical Therapy Plan Frequency and Duration Frequency of Treatment 2x/Week Duration of treatment (weeks) 12 Plan of Care Start Date 12/05/24 Plan of Care End Date 03/03/25 Next Visit Focus/Plan Next Note Type Treatment Note Next Visit Plan Next: STM to R lower leg to decr pain; Strengthen LE's to improve balance (in neutral spine) and safety with gait. Assess need for gentle sacral balancing (caution: osteoporosis & anteriolisthesis) for LBP reduction. Pt education: Posture & Review log roll/sit to stand as needed, and continue body mechanics (washing dishes and vacuuming addressed) ADLs. Might try to carefully Initiate Lincoln T/S extension ex's - Caution due to Grade 1 anterolisthesis of L3 on L4 (note: retrolisthesis at L1 on L2, L2 on L3 and L5 on S1). Might try MH/IFES of L/S to reduce neuro symptoms in R LE. Ther Ex: Hip stretches, LE strengthening, when pain reduced, progress Core stab.
--- NOTE | 2024-12-30 14:31 | PT.OTN ---
Current Diagnoses Other chronic pain (12/30/24) Spondylosis without myelopathy or radiculopathy, lumbar region (12/30/24) Radiculopathy, lumbar region (12/30/24) Low back pain, unspecified (12/30/24) Physical Therapy Treatment Note PT-OP-A Visit Information Start: 12/03/24 18:09 Freq: Status: Active Protocol: Document 12/30/24 13:51 SP (Rec: 12/30/24 15:06 SP [id number]) Out-Patient Physical Therapy Visit Information Visit Information Visit Type Treatment Note Visit Note *PN next tx 9th visit, see LIGHT RAIL TRAIN OPERATOR 10th visit, sent up with note today to add more appts after next Th. Pt will be busy with assisting sister pre/post surgery, thinks can attend 1x/ wk after next week. Visit Start Time 13:51 Visit Stop Time 14:31 Visit Number 8 (06/11 with eval) Number of LIGHT RAIL TRAIN OPERATOR Visits 1 Evaluation Information Evaluation Date 12/05/24 Precautions Precautions Per intake form: Osteoporosis , SOB from pulmonary fibrosis, twisted bowel, breast implant . PT-OP-B Current Condition Start: 12/03/24 18:09 Freq: Status: Active Protocol: Document 12/05/24 13:00 LRN (Rec: 12/05/24 13:56 LRN [id number]) Current Condition History of Current Condition Onset Date 2 yrs ago Current Complaints R LE is now dull, annoying, achy pain, with worst part behind the knee. History of Current Condition Insidious onset of tingling in RLE and was given Vit D that didn't help. 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 Her PCP (Dr He) referred her to have an EMG and states her problem was not determined to be neurological, but coming from the spine. Early Jul [address] Hampton and had a cortisone injection in spine ~August 2024, with no change in symptoms. Just this morning she had a 2nd accupuncture appt by Dr. Castanon, and no long has the needles/pins feeling so he is now being referred to physical therapy. The R LE symptom is now a dull annoying achy pain , worst pain is behind the knee. She is able to sleep on her back or L side. R sidelie is uncomfortable due to R hip pain. Walking, pt feels like a rubber band is under the R foot all the way to the hip. When stepping feels like something is lifting it that she isn't controlling and she just follows her leg. She states her spouse says her R leg swings around (circumducts) walking. Prior Treatments and Tests Pt reports prior Accupuncture appts x 2, by Dr. Castanon. MRI 07/02/24 of L/S: mild levoscoliosis centered at L2, mild retrolisthesis of L1 on L2 and L2 on L3, Grade 1 anterolisthesis of L3 on L4, mild of L5 on S1. Multilevel disc bulge and desiccation and multilevel central canal stenosis in the lumbar spine. Active small Schmorl's node at inferior endplate of T11. Future Testing and Treatments Planned Next Dr. Castanon accupuncture appt is 12/16/24. Treatment Goals Patient/Caregiver Goals Pt goals: - Eliminate R LE pain to go for walk w/o having akward leg spasms. - Remove the clumsiness/ swerving while walking and ache in R LE. - agreeable to a HEP. Personal Factors Other Personal Factors That May Effect SOB from Pulmonary Fibrosis, Therapy/Recovery Thyroid disorder, Used to walk daily, States few months ago in pulmonary rehab she exercised 90 minutes including walking 3x/wk (12 wks). PT-OP-C Subjective Start: 12/03/24 18:09 Freq: Status: Active Protocol: Document 12/30/24 13:51 SP (Rec: 12/30/24 15:06 SP [id number]) OP-PT Subjective Patient Comments Patient Comments Pt reports R foot worse numbness than L slight tingling. She stated worse at night but goes away sleeping, she finds puzzling. Compliant with HEP but reports the band rolls up into a rope feeling, uncomfortable around thighs. PT-OP-E Functional Tests Start: 12/03/24 18:09 Freq: Status: Active Protocol: Document 12/26/24 13:52 LRN (Rec: 12/26/24 17:26 LRN [id number]) Functional Tests Timed Up and Go (TUG) Score 20 Comments 2nd attempt (first time 22 secs) TUG Impairment Rating 100% Impaired (Score 20) PT-OP-G Mobility & Gait Start: 12/03/24 18:09 Freq: Status: Active Protocol: Document 12/05/24 13:00 LRN (Rec: 12/05/24 13:56 LRN [id number]) OP Gait Assessment Gait Gait Assistance Required: Independent Able to Maintain Weight Bearing Status Yes During Gait Assistive Devices Assistive Device None Gait Deviations General Gait Pattern Decreased Stride Length, Decreased Feet Clearance Factors Limiting Gait Function Factors Limiting Gait Function Incoordination,Pain Comments Gait Comments Occasional swinging out of R LE during swing through phase. PT-OP-H Neuro Start: 12/03/24 18:09 Freq: Status: Active Protocol: Document 12/05/24 13:00 LRN (Rec: 12/05/24 13:56 LRN [id number]) Sensation Evaluation Gross Sensation Gross Sensation WNL Deep Tendon Reflex & Clonus Assessment Deep Tendon Reflex Left Achilles Deep Tendon Reflex 2+ Normal Right Achilles Deep Tendon Reflex 3+ Normal But Brisk Bilateral Patellar Deep Tendon Reflex 3+ Normal But Brisk PT-OP-J Posture/Palpation/Skin Start: 12/03/24 18:09 Freq: Status: Active Protocol: Document 12/05/24 13:00 LRN (Rec: 12/05/24 13:56 LRN [id number]) Posture Evaluation Position Standing Head/C-Spine Posture Side Bent Left,Forward Head L-Spine Posture Shifted Left Shoulder Posture (R) Elevated Arm Posture (L) Internally Rotated,(R) Internally Rotated Pelvis Posture (R) Iliac Crest Superior,(L) PSIS Posterior Hip Posture (L) Externally Rotated Ankle/Foot Posture (L) Calcaneal Inversion Palpation Assessment Location R LE Palpation Location Normal sensation without pain complaints Low back Palpation Location R SIJ, gluteals Palpation Findings Tenderness PT-OP-K Range of Motion Start: 12/03/24 18:09 Freq: Status: Active Protocol: Document 12/26/24 13:52 LRN (Rec: 12/26/24 14:35 LRN [id number]) Lumbar Spine Range of Motion Lumbar Spine Active Degrees Testing Position Standing Flexion 110 Extension 5 Rotation Left 30 Rotation Right 10 Lateral Flexion Left 10 Lateral Flexion Right 7 PT-OP-L Special Tests Start: 12/03/24 18:09 Freq: Status: Active Protocol: Document 12/05/24 13:00 LRN (Rec: 12/05/24 13:56 LRN [id number]) Special Tests Lumbar Spine Special Tests Manual Traction Test Results - Comments No change with R LE pain Straight Leg Raise Test Results - Comments Mikael is 90 deg's w/o LE pain onset Slump Test Results - bilaterally Comments No change in sensation or pain Vertical Spine Loading Test Results - Comments No change in symptoms PT-OP-M Strength Start: 12/03/24 18:09 Freq: Status: Active Protocol: Document 12/13/24 13:46 LRN (Rec: 12/13/24 14:32 LRN [id number]) Toe Strength Toe Manual Muscle Testing Left Great Toe Flexion 4+ Good+ Comments Pt is not able to perform MTP, PIP or DIP flexion Right Great Toe Flexion 5 Normal Comments Pt is not able to perform MTP, PIP or DIP flexion PT-OP-Q Treatments Start: 12/03/24 18:09 Freq: Status: Active Protocol: Document 12/30/24 13:51 SP (Rec: 12/30/24 15:06 SP [id number]) Therapeutic Exercises Supine Exercises BKFO Side bilateral Equipment Used Lev 1 > L 2> L3 [place] green Reps/Minutes 10 light blue >10 teal > 30 [place] green Comments improved better resistance with good hipabd tiring. Hamstring stretch Supine Exercise Name With Ankle ROM Side bilateral Equipment Used grasp behind thigh, lower leg lift Reps/Minutes 10 reps Sitting Exercises seated hip abd with band Resistance level 3 [place] green Reps/Minutes 10x 2 Comments cues for TrA and breath exhale with ABD, inhale slow with return. Standing Exercises sit to stand with band Standing Exercise Name Standard height with UE use > Raised height w/ thigh support best Side bilateral Resistance level 2 band Equipment Used GB, plinth up high (knee flexed ~60 deg's) Reps/Minutes 4 x5 reps before knee irritation hands on lap, 2 reps arms across chest Comments verbal/visualcues for hip hinge buttocks back, knees out with feet asc/desc Neuro Re-Education Treatment Balance Activities Tandem walking Details finger glide wall Surface Min wall support> light> PRN contact Equipment hallway tile Comments 20 ft x3 laps improved PRN contact 3rd rep cues for tall, shoulder blade together, TA draw in, slower pacing. Corner balance ex's Details Feet together, Tandem stance. Surface Level Equipment Corner & heavy chair, GB. Reps/Duration 17' Comments NBOS - HTs and EC up to 30 sec slight sway but self midline recovery tandem- very challenging, SLS- L 2 sec, R 5 sec before LOB self chair/wall recovery cues tall scap and core engagment still unsteady. PT-OP-T Assessment and Plan Start: 12/03/24 18:09 Freq: Status: Active Protocol: Document 12/30/24 13:51 SP (Rec: 12/30/24 15:06 SP [id number]) Physical Therapy Assessment Goals Three Impairment Pain and clumsiness of R LE with walking Short Term Goal (STG) Improve R LE strength with pt able to walk with reported less clumsiness. 12/16/2024 Patient reports she feels slighlty less clumsy with ambulation, feels like right leg is moving straighter . 12/23/2024 Pt reports awakening w/ increased R foot numbness which improves throughout treatment session today. It's waking back up. 12/30/24: progression: trialed in PT tandem walking in hallway finger glide> PRN cues for tall posture, TA and slower pacing feel 2 ft of other, improved with reps less UE support. STG Duration 01/20/25 progressing 12/30/24 Retirement Goal (LTG) Modify walking gait and time as needed to eliminate R LE pain walking. LTG Duration 03/03/25 Two Impairment Decreased gait stability Short Term Goal (STG) Improve balance to decrease swerving with gait. STG Duration 01/20/25 Sanitary Inspector Goal (LTG) Improve gait stability to remove swerving and akward leg spasms while walking. LTG Duration 03/03/25 One Impairment Pt lacks appropriate self are home exercise program (HEP) Short Term Goal (STG) Pt will be able to participate in a self care corner balance HEP. 12/16/2024 Patient reports she is performing HEP every day as reviewed by PT previous sessions. 12/20/24: Initiated corner balance SLS ex. 12/26/24: Initiated corner tandem stance if spouse can guard pt for safety. \ 12/30/24: continued corner bal NBOS, tandem, SLS, able to compelete HTs and EC NBOS slight sway self recovery. STG Duration 01/20/25 progressed 12/30/24 Sanitary Inspector Goal (LTG) Pt will be independent on a self care HEP to improve core & R LE strength. 12/08/24: Modified ex to increase to 6 reps and placed trunk rot on hold. 12/20/24: HEP: LB program: Neutral spine (Pelvic Tilt, TA , Mutifidi), Heel slides, Heel slides & SLR. Issued Handouts: Body mechanics Basics and for Daily activities, and for log roll transfer. LTG Duration 03/03/25 progressed 12/20/24 Assessment Summary Assessment LIGHT RAIL TRAIN OPERATOR discussed pt purchasing looped TB online (provided screen shot loop TB) due to ribbon from PT rolls up and uncomfortable on legs. Improved increased resistance hooklying clamshell/ABD today. She improved corner balance EC NBOS but continues to be challenged tandem and SLS, even with cuing tall, scap engagement TA, even BLE midling, LOB lateral contact self recovery. Trialed progression in PT forward tandem stepping finger glide on wall, was able to progress decreased contact PRN 3rd lap with cues for tall/scap adduction and TA with slower stepping. Next suggest forward gait HTs and regular back stepping in hallway, future use metronome stepping and uneven surfaces. Physical Therapy Plan Frequency and Duration Frequency of Treatment 2x/Week Duration of treatment (weeks) 12 Plan of Care Start Date 12/05/24 Plan of Care End Date 03/03/25 Therapeutic Interventions Therapeutic Interventions Balance Training,Gait Training ,Home Exercise Program, Neuromuscular Re-education, Self-Care/Home Management,Soft Tissue Mobilization, Therapeutic Activities, Therapeutic Exercises Modalities Cold Pack/Ice Massage,Electric Stimulation,Hot Packs Other Therapeutic Interventions Gentle manual therapy. Next Visit Focus/Plan Next Note Type Progress Note Next Visit Plan Prog Next tx due to LIGHT RAIL TRAIN OPERATOR on 10th visit, reduce 1x/wk after next week (busy helping sister). Recheck response to TB and tandem bal walking progression in PT only finger glide wall. POC: Next: STM to R lateral lower leg to decr pain; Strengthen LE's to improve balance (in neutral spine trial hip and HS curls standing AROM> leg wt or resisted side stepping) and safety with gait. Assess need for gentle sacral balancing ( caution: osteoporosis & anteriolisthesis) for LBP reduction. Pt education: Posture & Review log roll/sit to stand as needed, and continue body mechanics (washing dishes and vacuuming addressed) ADLs. Might try to carefully Initiate [place] T/S extension ex's - Caution due to Grade 1 anterolisthesis of L3 on L4 (note: retrolisthesis at L1 on L2, L2 on L3 and L5 on S1). Might try MH/IFES of L/S to reduce neuro symptoms in R LE. Ther Ex: Hip stretches, LE strengthening, when pain reduced, progress Core stab.
--- NOTE | 2025-01-03 15:04 | PT.OTN ---
Current Diagnoses Other chronic pain (01/03/25) Spondylosis without myelopathy or radiculopathy, lumbar region (01/03/25) Radiculopathy, lumbar region (01/03/25) Low back pain, unspecified (01/03/25) Physical Therapy Treatment Note PT-OP-A Visit Information Start: 12/03/24 18:09 Freq: Status: Active Protocol: Document 01/03/25 13:47 LRN (Rec: 01/03/25 15:03 LRN [id number]) Out-Patient Physical Therapy Visit Information Visit Information Visit Type Progress Note Visit Start Time 13:46 Visit Stop Time 14:31 Visit Number 9 (07/12 with eval) Evaluation Information Evaluation Date 12/05/24 Precautions Precautions Per intake form: Osteoporosis , SOB from pulmonary fibrosis, twisted bowel, breast implant . PT-OP-B Current Condition Start: 12/03/24 18:09 Freq: Status: Active Protocol: Document 12/05/24 13:00 LRN (Rec: 12/05/24 13:56 LRN [id number]) Current Condition History of Current Condition Onset Date 2 yrs ago Current Complaints R LE is now dull, annoying, achy pain, with worst part behind the knee. History of Current Condition Insidious onset of tingling in RLE and was given Vit D that didn't help. 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 Her PCP (Dr He) referred her to have an EMG and states her problem was not determined to be neurological, but coming from the spine. Early Jul [address] Hampton and had a cortisone injection in spine ~August 2024, with no change in symptoms. Just this morning she had a 2nd accupuncture appt by Dr. Castanon, and no long has the needles/pins feeling so he is now being referred to physical therapy. The R LE symptom is now a dull annoying achy pain , worst pain is behind the knee. She is able to sleep on her back or L side. R sidelie is uncomfortable due to R hip pain. Walking, pt feels like a rubber band is under the R foot all the way to the hip. When stepping feels like something is lifting it that she isn't controlling and she just follows her leg. She states her spouse says her R leg swings around (circumducts) walking. Prior Treatments and Tests Pt reports prior Accupuncture appts x 2, by Dr. Castanon. MRI 07/02/24 of L/S: mild levoscoliosis centered at L2, mild retrolisthesis of L1 on L2 and L2 on L3, Grade 1 anterolisthesis of L3 on L4, mild of L5 on S1. Multilevel disc bulge and desiccation and multilevel central canal stenosis in the lumbar spine. Active small Schmorl's node at inferior endplate of T11. Future Testing and Treatments Planned Next Dr. Castanon accupuncture appt is 12/16/24. Treatment Goals Patient/Caregiver Goals Pt goals: - Eliminate R LE pain to go for walk w/o having akward leg spasms. - Remove the clumsiness/ swerving while walking and ache in R LE. - agreeable to a HEP. Personal Factors Other Personal Factors That May Effect SOB from Pulmonary Fibrosis, Therapy/Recovery Thyroid disorder, Used to walk daily, States few months ago in pulmonary rehab she exercised 90 minutes including walking 3x/wk (12 wks). PT-OP-C Subjective Start: 12/03/24 18:09 Freq: Status: Active Protocol: Document 01/03/25 13:47 LRN (Rec: 01/03/25 15:03 LRN [id number]) OP-PT Subjective Patient Comments Patient Comments Feels she has a little more control over her, previously her leg would steer her in a wrong direction, spouse notices she is walking a straighter path. She is holding onto spouse walking with less need as she is feeling stronger in her legs with walking. Patient Questionnaires Oswestry Low Back Index Oswestry Score 9 Oswestry Impairment 1 to 19% Impaired (Score 1-19) OP-PT Pain Assessment Pain Assessment Grid Paper Pain Assessment Grid Completed Yes Location Low Back Intensity 0 R LE Pain Location Details R Posterior knee, lateral lower leg & ankle Intensity 3 PT-OP-E Functional Tests Start: 12/03/24 18:09 Freq: Status: Active Protocol: Document 12/26/24 13:52 LRN (Rec: 12/26/24 17:26 LRN [id number]) Functional Tests Timed Up and Go (TUG) Score 20 Comments 2nd attempt (first time 22 secs) TUG Impairment Rating 100% Impaired (Score 20) PT-OP-G Mobility & Gait Start: 12/03/24 18:09 Freq: Status: Active Protocol: Document 12/05/24 13:00 LRN (Rec: 12/05/24 13:56 LRN [id number]) OP Gait Assessment Gait Gait Assistance Required: Independent Able to Maintain Weight Bearing Status Yes During Gait Assistive Devices Assistive Device None Gait Deviations General Gait Pattern Decreased Stride Length, Decreased Feet Clearance Factors Limiting Gait Function Factors Limiting Gait Function Incoordination,Pain Comments Gait Comments Occasional swinging out of R LE during swing through phase. PT-OP-H Neuro Start: 12/03/24 18:09 Freq: Status: Active Protocol: Document 12/05/24 13:00 LRN (Rec: 12/05/24 13:56 LRN [id number]) Sensation Evaluation Gross Sensation Gross Sensation WNL Deep Tendon Reflex & Clonus Assessment Deep Tendon Reflex Left Achilles Deep Tendon Reflex 2+ Normal Right Achilles Deep Tendon Reflex 3+ Normal But Brisk Bilateral Patellar Deep Tendon Reflex 3+ Normal But Brisk PT-OP-J Posture/Palpation/Skin Start: 12/03/24 18:09 Freq: Status: Active Protocol: Document 12/05/24 13:00 LRN (Rec: 12/05/24 13:56 [facility] [id number]) Posture Evaluation Position Standing Head/C-Spine Posture Side Bent Left,Forward Head L-Spine Posture Shifted Left Shoulder Posture (R) Elevated Arm Posture (L) Internally Rotated,(R) Internally Rotated Pelvis Posture (R) Iliac Crest Superior,(L) PSIS Posterior Hip Posture (L) Externally Rotated Ankle/Foot Posture (L) Calcaneal Inversion Palpation Assessment Location R LE Palpation Location Normal sensation without pain complaints Low back Palpation Location R SIJ, gluteals Palpation Findings Tenderness PT-OP-K Range of Motion Start: 12/03/24 18:09 Freq: Status: Active Protocol: Document 12/26/24 13:52 LRN (Rec: 12/26/24 14:35 LRN [id number]) Lumbar Spine Range of Motion Lumbar Spine Active Degrees Testing Position Standing Flexion 110 Extension 5 Rotation Left 30 Rotation Right 10 Lateral Flexion Left 10 Lateral Flexion Right 7 PT-OP-L Special Tests Start: 12/03/24 18:09 Freq: Status: Active Protocol: Document 12/05/24 13:00 LRN (Rec: 12/05/24 13:56 LRN [id number]) Special Tests Lumbar Spine Special Tests Manual Traction Test Results - Comments No change with R LE pain Straight Leg Raise Test Results - Comments Mikael is 90 deg's w/o LE pain onset Slump Test Results - bilaterally Comments No change in sensation or pain Vertical Spine Loading Test Results - Comments No change in symptoms PT-OP-M Strength Start: 12/03/24 18:09 Freq: Status: Active Protocol: Document 12/13/24 13:46 LRN (Rec: 12/13/24 14:32 LRN [id number]) Toe Strength Toe Manual Muscle Testing Left Great Toe Flexion 4+ Good+ Comments Pt is not able to perform MTP, PIP or DIP flexion Right Great Toe Flexion 5 Normal Comments Pt is not able to perform MTP, PIP or DIP flexion PT-OP-Q Treatments Start: 12/03/24 18:09 Freq: Status: Active Protocol: Document 01/03/25 13:47 LRN (Rec: 01/03/25 15:03 LRN [id number]) Cardio Equipment Recumbent Stepper (Sci-Fit) Duration (Minutes) 7 Resistance 1 Seat Position 15 Other 0.7 miles Gym Equipment Shuttle Recovery Unilateral Squats Details bilateral Resistance 25# Shuttle Recovery Platform Stable Reps/Time 15x2, f/b rest Bilateral Squats Resistance 25#, 50# Shuttle Recovery Platform Stable Reps/Time 15x each, f/b rest Gait Training Gait Activity Gait training Description Gait with toe off and gait with heel strike Device Used None Level of Assistance SBA Surface Level Distance/Duration 20' x 4 Treatment Focus No skidding of heel on swing through Comments No fatigue or SOB after gait. Neuro Re-Education Treatment Balance Activities Tandem walking Details finger glide wall Surface Min wall support> light> PRN contact Equipment hallway tile Comments 20 ft x2 laps improved PRN contact 3rd rep cues for tall, shoulder blade together, TA draw in, slower pacing. PT-OP-T Assessment and Plan Start: 12/03/24 18:09 Freq: Status: Active Protocol: Document 01/03/25 13:47 LRN (Rec: 01/03/25 15:03 LRN [id number]) Physical Therapy Assessment Rehab Potential Rehabilitation Potential Good Evaluation Complexity Number of Personal Factors/Comorbidities 1-2 Number of Body Systems Impaired 4 or More Clinical Presentation at Evaluation Evolving Impairments Impairments Activity Tolerance,Balance, Gait,Pain,Posture,Soft Tissue Mobility,Strength,Transfers Goals Three Impairment Pain and clumsiness of R LE with walking Short Term Goal (STG) Improve R LE strength with pt able to walk with reported less clumsiness. 12/16/2024 Patient reports she feels slighlty less clumsy with ambulation, feels like right leg is moving straighter . 12/23/2024 Pt reports awakening w/ increased R foot numbness which improves throughout treatment session today. It's waking back up. 12/30/24: progression: trialed in PT tandem walking in hallway finger glide> PRN cues for tall posture, TA and slower pacing feel 2 ft of other, improved with reps less UE support. 01/03/25: Pt reporting walking a straighter path with spouse and her not feeling like she has to hang onto him for safety as much as when she first started therapy. STG Duration 01/20/25 progressing 01/03/25 Fdc Goal (LTG) Modify walking gait and time as needed to eliminate R LE pain walking. 01/03/25: R leg pain behind the knee and down lateral side of leg to ankle (foot numb all the time) at nighttime only. No pain with walking. After doing stairs, her R calf area was painful and she was very SOB. LTG Duration 03/03/25 (01/03/25: MET GOAL , but R lower leg pain at nighttime.) Two Impairment Decreased gait stability Short Term Goal (STG) Improve balance to decrease swerving with gait. 01/03/25: Pt able to walk without swerving 10' x 4. Swerving after ~ 60-80'. STG Duration 01/20/25 progressed 01/03/25 Fdc Goal (LTG) Improve gait stability to remove swerving and akward leg spasms while walking. (TUG 20 secs on 12/26/24) 01/03/25: Pt states spouse feels she is not swerving as much on her walk. LTG Duration 03/03/25 progressing One Impairment Pt lacks appropriate self are home exercise program (HEP) Short Term Goal (STG) Pt will be able to participate in a self care corner balance HEP. 12/16/2024 Patient reports she is performing HEP every day as reviewed by PT previous sessions. 12/20/24: Initiated corner balance SLS ex. 12/26/24: Initiated corner tandem stance if spouse can guard pt for safety. \ 12/30/24: continued corner bal NBOS, tandem, SLS, able to compelete HTs and EC NBOS slight sway self recovery. STG Duration 01/20/25 progressed 12/30/24 Bike Mechanic Goal (LTG) Pt will be independent on a self care HEP to improve core & R LE strength. 12/08/24: Modified ex to increase to 6 reps and placed trunk rot on hold. 12/20/24: HEP: LB program: Neutral spine (Pelvic Tilt, TA , Mutifidi), Heel slides, Heel slides & SLR. Issued Handouts: Body mechanics Basics and for Daily activities, and for log roll transfer. LTG Duration 03/03/25 progressed 12/20/24 Assessment Summary Assessment 84 yo female w/Lumbar disc herniation with chronic R LE sciatic pain (including R LBP first in AM), multi-level disc bulges and multilevel central canal stenosis in L/S; areas of both retro- and reuben- listhesis with lumbar shift L as expected. Pt able to do recumbent stepper and gait without SOB and no c/o fatigue . Gait mechanics improved with cue to start gait with heel strike, leading to no scuffing of feet with swing through. Strengthening in LE' s is progressing, pt became SOB after shuttle reformer exercise (single & double leg squats). Pt did not notify PT of SOB w/exer, but it was requested she notify PT if SOB with activities. Physical Therapy Plan Frequency and Duration Frequency of Treatment 2x/Week Duration of treatment (weeks) 12 Plan of Care Start Date 01/03/25 Plan of Care End Date 03/03/25 Therapeutic Interventions Therapeutic Interventions Balance Training,Gait Training ,Home Exercise Program,Manual Therapy,Neuromuscular Re- education,Self-Care/Home Management,Soft Tissue Mobilization,Therapeutic Activities,Therapeutic Exercises Modalities Electric Stimulation,Hot Packs Next Visit Focus/Plan Next Note Type Treatment Note Next Visit Plan Cont 2x/wk, until her 92 yo sister has surgery, may need to reduce to 1x/wk as pt might be in [place]. Next: STM to R lateral lower leg to decr pain & Recheck response to TB and tandem bal walking progression in PT only finger glide wall. POC: Strengthen LE's to improve balance (in neutral spine trial hip and HS curls standing AROM> leg wt or resisted side stepping) and safety with gait. Assess need for LE neural glides & gentle sacral balancing (caution: osteoporosis & anteriolisthesis) for LBP reduction. Pt education: Posture & Review log roll/sit to stand as needed, and continue body mechanics (washing dishes and vacuuming addressed) ADLs. Might try to carefully Initiate [place] T/S extension ex's - Caution due to Grade 1 anterolisthesis of L3 on L4 (note: retrolisthesis at L1 on L2, L2 on L3 and L5 on S1). Might try MH/IFES of L/S to reduce neuro symptoms in R LE. Ther Ex: Hip stretches, when pain reduced, progress Core stab.
--- NOTE | 2025-01-05 14:30 | PT.OTN ---
Current Diagnoses Other chronic pain (01/05/25) Spondylosis without myelopathy or radiculopathy, lumbar region (01/05/25) Radiculopathy, lumbar region (01/05/25) Low back pain, unspecified (01/05/25) Physical Therapy Treatment Note PT-OP-A Visit Information Start: 12/03/24 18:09 Freq: Status: Active Protocol: Document 01/05/25 13:49 SP (Rec: 01/05/25 14:33 SP [id number]) Out-Patient Physical Therapy Visit Information Visit Information Visit Type Treatment Note Visit Start Time 13:49 Visit Stop Time 14:29 Visit Number 10 (2/10 with PN Number of MANAGEMENT AIDE Visits 1 Evaluation Information Evaluation Date 12/05/24 Precautions Precautions Per intake form: Osteoporosis , SOB from pulmonary fibrosis, twisted bowel, breast implant . PT-OP-B Current Condition Start: 12/03/24 18:09 Freq: Status: Active Protocol: Document 12/05/24 13:00 LRN (Rec: 12/05/24 13:56 LRN [id number]) Current Condition History of Current Condition Onset Date 2 yrs ago Current Complaints R LE is now dull, annoying, achy pain, with worst part behind the knee. History of Current Condition Insidious onset of tingling in RLE and was given Vit D that didn't help. 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 Her PCP (Dr He) referred her to have an EMG and states her problem was not determined to be neurological, but coming from the spine. Early Jul [address] Hampton and had a cortisone injection in spine ~August 2024, with no change in symptoms. Just this morning she had a 2nd accupuncture appt by Dr. Castanon, and no long has the needles/pins feeling so he is now being referred to physical therapy. The R LE symptom is now a dull annoying achy pain , worst pain is behind the knee. She is able to sleep on her back or L side. R sidelie is uncomfortable due to R hip pain. Walking, pt feels like a rubber band is under the R foot all the way to the hip. When stepping feels like something is lifting it that she isn't controlling and she just follows her leg. She states her spouse says her R leg swings around (circumducts) walking. Prior Treatments and Tests Pt reports prior Accupuncture appts x 2, by Dr. Castanon. MRI 07/02/24 of L/S: mild levoscoliosis centered at L2, mild retrolisthesis of L1 on L2 and L2 on L3, Grade 1 anterolisthesis of L3 on L4, mild of L5 on S1. Multilevel disc bulge and desiccation and multilevel central canal stenosis in the lumbar spine. Active small Schmorl's node at inferior endplate of T11. Future Testing and Treatments Planned Next Dr. Castanon accupuncture appt is 12/16/24. Treatment Goals Patient/Caregiver Goals Pt goals: - Eliminate R LE pain to go for walk w/o having akward leg spasms. - Remove the clumsiness/ swerving while walking and ache in R LE. - agreeable to a HEP. Personal Factors Other Personal Factors That May Effect SOB from Pulmonary Fibrosis, Therapy/Recovery Thyroid disorder, Used to walk daily, States few months ago in pulmonary rehab she exercised 90 minutes including walking 3x/wk (12 wks). PT-OP-C Subjective Start: 12/03/24 18:09 Freq: Status: Active Protocol: Document 01/05/25 13:49 SP (Rec: 01/05/25 14:33 SP [id number]) OP-PT Subjective Patient Comments Patient Comments Pt reports did well after last tx. She states likes the machines, feels like works on strength for her legs. Pt reported rolling pin to lateral thigh made her bumps go away after last tx, very pleased. PT-OP-E Functional Tests Start: 12/03/24 18:09 Freq: Status: Active Protocol: Document 12/26/24 13:52 LRN (Rec: 12/26/24 17:26 LRN [id number]) Functional Tests Timed Up and Go (TUG) Score 20 Comments 2nd attempt (first time 22 secs) TUG Impairment Rating 100% Impaired (Score 20) PT-OP-G Mobility & Gait Start: 12/03/24 18:09 Freq: Status: Active Protocol: Document 12/05/24 13:00 LRN (Rec: 12/05/24 13:56 LR [id number]) OP Gait Assessment Gait Gait Assistance Required: Independent Able to Maintain Weight Bearing Status Yes During Gait Assistive Devices Assistive Device None Gait Deviations General Gait Pattern Decreased Stride Length, Decreased Feet Clearance Factors Limiting Gait Function Factors Limiting Gait Function Incoordination,Pain Comments Gait Comments Occasional swinging out of R LE during swing through phase. PT-OP-H Neuro Start: 12/03/24 18:09 Freq: Status: Active Protocol: Document 12/05/24 13:00 LRN (Rec: 12/05/24 13:56 LR [id number]) Sensation Evaluation Gross Sensation Gross Sensation WNL Deep Tendon Reflex & Clonus Assessment Deep Tendon Reflex Left Achilles Deep Tendon Reflex 2+ Normal Right Achilles Deep Tendon Reflex 3+ Normal But Brisk Bilateral Patellar Deep Tendon Reflex 3+ Normal But Brisk PT-OP-J Posture/Palpation/Skin Start: 12/03/24 18:09 Freq: Status: Active Protocol: Document 12/05/24 13:00 LRN (Rec: 12/05/24 13:56 LRN [id number]) Posture Evaluation Position Standing Head/C-Spine Posture Side Bent Left,Forward Head L-Spine Posture Shifted Left Shoulder Posture (R) Elevated Arm Posture (L) Internally Rotated,(R) Internally Rotated Pelvis Posture (R) Iliac Crest Superior,(L) PSIS Posterior Hip Posture (L) Externally Rotated Ankle/Foot Posture (L) Calcaneal Inversion Palpation Assessment Location R LE Palpation Location Normal sensation without pain complaints Low back Palpation Location R SIJ, gluteals Palpation Findings Tenderness PT-OP-K Range of Motion Start: 12/03/24 18:09 Freq: Status: Active Protocol: Document 12/26/24 13:52 LRN (Rec: 12/26/24 14:35 LRN [id number]) Lumbar Spine Range of Motion Lumbar Spine Active Degrees Testing Position Standing Flexion 110 Extension 5 Rotation Left 30 Rotation Right 10 Lateral Flexion Left 10 Lateral Flexion Right 7 PT-OP-L Special Tests Start: 12/03/24 18:09 Freq: Status: Active Protocol: Document 12/05/24 13:00 LRN (Rec: 12/05/24 13:56 LRN [id number]) Special Tests Lumbar Spine Special Tests Manual Traction Test Results - Comments No change with R LE pain Straight Leg Raise Test Results - Comments Mikael is 90 deg's w/o LE pain onset Slump Test Results - bilaterally Comments No change in sensation or pain Vertical Spine Loading Test Results - Comments No change in symptoms PT-OP-M Strength Start: 12/03/24 18:09 Freq: Status: Active Protocol: Document 12/13/24 13:46 LRN (Rec: 12/13/24 14:32 LRN [id number]) Toe Strength Toe Manual Muscle Testing Left Great Toe Flexion 4+ Good+ Comments Pt is not able to perform MTP, PIP or DIP flexion Right Great Toe Flexion 5 Normal Comments Pt is not able to perform MTP, PIP or DIP flexion PT-OP-Q Treatments Start: 12/03/24 18:09 Freq: Status: Active Protocol: Document 01/05/25 13:49 SP (Rec: 01/05/25 14:33 SP [id number]) Cardio Equipment Recumbent Stepper (Sci-Fit) Duration (Minutes) 7 Resistance 1.5 Seat Position 15 (slide out seat/leg falling out ft plates)>12 Other BUEs& BLEs 68 RPMs, 0.85 miles Gym Equipment Shuttle Recovery Unilateral Squats Details bilateral Resistance 25#> 37# 1 navy band Shuttle Recovery Platform Stable Reps/Time 10x2 alternating each LE sets Bilateral Squats Details cued knees wide with feet see inside ankles Resistance 50# 2 navy band Shuttle Recovery Platform Stable Reps/Time 15x Therapeutic Exercises Standing Exercises resisted side stepping Standing Exercise Name trial in PT for hip abd strengthening Side bilateral Resistance Tb #3 green around thighs Equipment Used no UE support inside //bars Reps/Minutes 10 ft x3 laps Comments cued trail LE clearance, good pacing Other Exercises Self STMs Other Exercise Name ITB, Peroneal & Ant Tib /c rolling pin to Side right Equipment Used wooden rolling pin Reps/Minutes approx 1 min Comments good feedback response Gait Training Gait Activity Gait training Description Gait with toe off and gait with heel strike Device Used None Level of Assistance SBA Surface Level Distance/Duration 50 ' hallway x3 laps Treatment Focus No skidding of heel on swing through Comments Cued DF swing phase, heel to heel strike phase, arm swing, increase VARGHESE with trunk tall little more forward into advanced LE but not hunced over. No fatigue or SOB after gait. PT-OP-T Assessment and Plan Start: 12/03/24 18:09 Freq: Status: Active Protocol: Document 01/05/25 13:49 SP (Rec: 01/05/25 14:33 SP [id number]) Physical Therapy Assessment Goals Three Impairment Pain and clumsiness of R LE with walking Short Term Goal (STG) Improve R LE strength with pt able to walk with reported less clumsiness. 12/16/2024 Patient reports she feels slighlty less clumsy with ambulation, feels like right leg is moving straighter . 12/23/2024 Pt reports awakening w/ increased R foot numbness which improves throughout treatment session today. It's waking back up. 12/30/24: progression: trialed in PT tandem walking in hallway finger glide> PRN cues for tall posture, TA and slower pacing feel 2 ft of other, improved with reps less UE support. 01/03/25: Pt reporting walking a straighter path with spouse and her not feeling like she has to hang onto him for safety as much as when she first started therapy. STG Duration 01/20/25 progressing 01/03/25 Senior Living Goal (LTG) Modify walking gait and time as needed to eliminate R LE pain walking. 01/03/25: R leg pain behind the knee and down lateral side of leg to ankle (foot numb all the time) at nighttime only. No pain with walking. After doing stairs, her R calf area was painful and she was very SOB. LTG Duration 03/03/25 (01/03/25: MET GOAL , but R lower leg pain at nighttime.) Two Impairment Decreased gait stability Short Term Goal (STG) Improve balance to decrease swerving with gait. 01/03/25: Pt able to walk without swerving 10' x 4. Swerving after ~ 60-80'. STG Duration 01/20/25 progressed 01/03/25 [employer] Goal (LTG) Improve gait stability to remove swerving and akward leg spasms while walking. (TUG 20 secs on 12/26/24) 01/03/25: Pt states spouse feels she is not swerving as much on her walk. LTG Duration 03/03/25 progressing One Impairment Pt lacks appropriate self are home exercise program (HEP) Short Term Goal (STG) Pt will be able to participate in a self care corner balance HEP. 12/16/2024 Patient reports she is performing HEP every day as reviewed by PT previous sessions. 12/20/24: Initiated corner balance SLS ex. 12/26/24: Initiated corner tandem stance if spouse can guard pt for safety. \ 12/30/24: continued corner bal NBOS, tandem, SLS, able to compelete HTs and EC NBOS slight sway self recovery. STG Duration 01/20/25 progressed 12/30/24 Senior Living Goal (LTG) Pt will be independent on a self care HEP to improve core & R LE strength. 12/08/24: Modified ex to increase to 6 reps and placed trunk rot on hold. 12/20/24: HEP: LB program: Neutral spine (Pelvic Tilt, TA , Mutifidi), Heel slides, Heel slides & SLR. Issued Handouts: Body mechanics Basics and for Daily activities, and for log roll transfer. LTG Duration 03/03/25 progressed 12/20/24 Assessment Summary Assessment Pt improved increase VARGHESE and able tolerated increase resistance on bike and leg press today. Trialed resisted side stepping, asked bring her looped bands next tx. Improved self STMs using rolling pin for carryover home comfort. Cued increased DF swing phase, increase VARGHESE and wt shift into advanced LE during gait for safety on sidewalks home. Physical Therapy Plan Frequency and Duration Frequency of Treatment 2x/Week Duration of treatment (weeks) 12 Plan of Care Start Date 01/03/25 Plan of Care End Date 03/03/25 Therapeutic Interventions Therapeutic Interventions Balance Training,Gait Training ,Home Exercise Program,Manual Therapy,Neuromuscular Re- education,Self-Care/Home Management,Soft Tissue Mobilization,Therapeutic Activities,Therapeutic Exercises Modalities Electric Stimulation,Hot Packs Next Visit Focus/Plan Next Note Type Treatment Note Next Visit Plan recheck added more appts. Cont 2x/wk (only 2 appts scheduled beyond today), until her 92 yo sister has surgery, may need to reduce to 1x/wk as pt might be in [place]. Next: STM to R lateral lower leg to decr pain & Recheck response to TB and tandem bal walking progression in PT only finger glide wall. POC: Strengthen LE's to improve balance (in neutral spine trial hip and HS curls standing AROM> leg wt or resisted side stepping) and safety with gait. Assess need for LE neural glides & gentle sacral balancing (caution: osteoporosis & anteriolisthesis) for LBP reduction. Pt education: Posture & Review log roll/sit to stand as needed, and continue body mechanics (washing dishes and vacuuming addressed) ADLs. Might try to carefully Initiate [place] T/S extension ex's - Caution due to Grade 1 anterolisthesis of L3 on L4 (note: retrolisthesis at L1 on L2, L2 on L3 and L5 on S1). Might try MH/IFES of L/S to reduce neuro symptoms in R LE. Ther Ex: Hip stretches, when pain reduced, progress Core stab.
--- NOTE | 2025-01-11 12:20 | PT.OTN ---
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 PT-OP-B Current Condition Start: 12/03/24 18:09 Freq: Status: Active Protocol: Document 12/05/24 13:00 LRN (Rec: 12/05/24 13:56 LRN [id number]) Current Condition History of Current Condition Onset Date 2 yrs ago Current Complaints R LE is now dull, annoying, achy pain, with worst part behind the knee. History of Current Condition Insidious onset of tingling in RLE and was given Vit D that didn't help. 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 Her PCP (Dr He) referred her to have an EMG and states her problem was not determined to be neurological, but coming from the spine. Early Jul [address] Hampton and had a cortisone injection in spine ~August 2024, with no change in symptoms. Just this morning she had a 2nd accupuncture appt by Dr. Castanon, and no long has the needles/pins feeling so he is now being referred to physical therapy. The R LE symptom is now a dull annoying achy pain , worst pain is behind the knee. She is able to sleep on her back or L side. R sidelie is uncomfortable due to R hip pain. Walking, pt feels like a rubber band is under the R foot all the way to the hip. When stepping feels like something is lifting it that she isn't controlling and she just follows her leg. She states her spouse says her R leg swings around (circumducts) walking. Prior Treatments and Tests Pt reports prior Accupuncture appts x 2, by Dr. Castanon. MRI 07/02/24 of L/S: mild levoscoliosis centered at L2, mild retrolisthesis of L1 on L2 and L2 on L3, Grade 1 anterolisthesis of L3 on L4, mild of L5 on S1. Multilevel disc bulge and desiccation and multilevel central canal stenosis in the lumbar spine. Active small Schmorl's node at inferior endplate of T11. Future Testing and Treatments Planned Next Dr. Castanon accupuncture appt is 12/16/24. Treatment Goals Patient/Caregiver Goals Pt goals: - Eliminate R LE pain to go for walk w/o having akward leg spasms. - Remove the clumsiness/ swerving while walking and ache in R LE. - agreeable to a HEP. Personal Factors Other Personal Factors That May Effect SOB from Pulmonary Fibrosis, Therapy/Recovery Thyroid disorder, Used to walk daily, States few months ago in pulmonary rehab she exercised 90 minutes including walking 3x/wk (12 wks). PT-OP-C Subjective Start: 12/03/24 18:09 Freq: Status: Active Protocol: Document 01/11/25 11:34 SP (Rec: 01/11/25 12:33 SP [id number]) OP-PT Subjective Patient Comments Patient Comments Pt reports tired at arrival, didn't sleep welll last night due to neuropathy, numbness> burning, tingling then went away but took 2 hrs. Utilized CP and HP for support. She stated felt ok after PT txs. Has the worst time when goes lay down. She reports compliant with HEP band walking, band sitting, PT-OP-E Functional Tests Start: 12/03/24 18:09 Freq: Status: Active Protocol: Document 12/26/24 13:52 LRN (Rec: 12/26/24 17:26 LRN [id number]) Functional Tests Timed Up and Go (TUG) Score 20 Comments 2nd attempt (first time 22 secs) TUG Impairment Rating 100% Impaired (Score 20) PT-OP-G Mobility & Gait Start: 12/03/24 18:09 Freq: Status: Active Protocol: Document 12/05/24 13:00 LRN (Rec: 12/05/24 13:56 LRN [id number]) OP Gait Assessment Gait Gait Assistance Required: Independent Able to Maintain Weight Bearing Status Yes During Gait Assistive Devices Assistive Device None Gait Deviations General Gait Pattern Decreased Stride Length, Decreased Feet Clearance Factors Limiting Gait Function Factors Limiting Gait Function Incoordination,Pain Comments Gait Comments Occasional swinging out of R LE during swing through phase. PT-OP-H Neuro Start: 12/03/24 18:09 Freq: Status: Active Protocol: Document 12/05/24 13:00 LRN (Rec: 12/05/24 13:56 LRN [id number]) Sensation Evaluation Gross Sensation Gross Sensation WNL Deep Tendon Reflex & Clonus Assessment Deep Tendon Reflex Left Achilles Deep Tendon Reflex 2+ Normal Right Achilles Deep Tendon Reflex 3+ Normal But Brisk Bilateral Patellar Deep Tendon Reflex 3+ Normal But Brisk PT-OP-J Posture/Palpation/Skin Start: 12/03/24 18:09 Freq: Status: Active Protocol: Document 12/05/24 13:00 LRN (Rec: 12/05/24 13:56 LRN [id number]) Posture Evaluation Position Standing Head/C-Spine Posture Side Bent Left,Forward Head L-Spine Posture Shifted Left Shoulder Posture (R) Elevated Arm Posture (L) Internally Rotated,(R) Internally Rotated Pelvis Posture (R) Iliac Crest Superior,(L) PSIS Posterior Hip Posture (L) Externally Rotated Ankle/Foot Posture (L) Calcaneal Inversion Palpation Assessment Location R LE Palpation Location Normal sensation without pain complaints Low back Palpation Location R SIJ, gluteals Palpation Findings Tenderness PT-OP-K Range of Motion Start: 12/03/24 18:09 Freq: Status: Active Protocol: Document 12/26/24 13:52 LRN (Rec: 12/26/24 14:35 LRN [id number]) Lumbar Spine Range of Motion Lumbar Spine Active Degrees Testing Position Standing Flexion 110 Extension 5 Rotation Left 30 Rotation Right 10 Lateral Flexion Left 10 Lateral Flexion Right 7 PT-OP-L Special Tests Start: 12/03/24 18:09 Freq: Status: Active Protocol: Document 12/05/24 13:00 LRN (Rec: 12/05/24 13:56 LRN [id number]) Special Tests Lumbar Spine Special Tests Manual Traction Test Results - Comments No change with R LE pain Straight Leg Raise Test Results - Comments Mikael is 90 deg's w/o LE pain onset Slump Test Results - bilaterally Comments No change in sensation or pain Vertical Spine Loading Test Results - Comments No change in symptoms PT-OP-M Strength Start: 12/03/24 18:09 Freq: Status: Active Protocol: Document 12/13/24 13:46 LRN (Rec: 12/13/24 14:32 LRN [id number]) Toe Strength Toe Manual Muscle Testing Left Great Toe Flexion 4+ Good+ Comments Pt is not able to perform MTP, PIP or DIP flexion Right Great Toe Flexion 5 Normal Comments Pt is not able to perform MTP, PIP or DIP flexion PT-OP-Q Treatments Start: 12/03/24 18:09 Freq: Status: Active Protocol: Document 01/11/25 11:34 SP (Rec: 01/11/25 12:33 SP [id number]) Cardio Equipment Recumbent Stepper (Sci-Fit) Duration (Minutes) 8 Resistance 2 Seat Position 11 Other BLEs only cued knee apart press with heels /c TA: 56-60 RPMs, 0. miles Gym Equipment Shuttle Recovery Unilateral Squats Details bilateral (RLe little weaker tires quicker by end 2nd set) Resistance 25#> 37# 1 navy band Shuttle Recovery Platform Stable Reps/Time 15x2 alternating each LE sets Bilateral Squats Details cued knees wide with feet see inside ankles Resistance 50# 1teal/1 navy 8 reps> 2 navy bands 15 reps Shuttle Recovery Platform Stable Reps/Time cued slower pacing Therapeutic Exercises Supine Exercises Hamstring stretch Supine Exercise Name With Ankle ROM- reviewed (her [facility]) Side bilateral Equipment Used grasp behind thigh, lower leg lift Reps/Minutes 10 reps Piriformis stretch Supine Exercise Name HEP: Legs crossed>KTC, Cued same side at a time, focus R hip. Side bilateral Reps/Minutes 10 SH x 7 bilaterally DKTC Supine Exercise Name reviewed (her [facility]) Reps/Minutes 10 SH (~5 breath cycles) x 6 SKTC Supine Exercise Name reviewed (her [facility]) Side bilateral Reps/Minutes 10SH (~5 breath cycles) x 5 each Comments 01/16/25 3 reps in PT reviewed Sitting Exercises seated hip abd with band Sitting Exercise Name Reviewed HEP Resistance level 3 creek green Reps/Minutes 15x 2 Comments cues for TrA and breath exhale with ABD, inhale slow with return. Standing Exercises resisted side stepping Standing Exercise Name added for HEP /c written on her [facility] HO: TA & hip abd strengthening Side bilateral Resistance Tb #3 green around thighs Equipment Used no UE support inside //bars Reps/Minutes 10 ft x3 laps Comments cued slower pacing return, DF foot clearance improved form with reps Neuro Re-Education Treatment Balance Activities dynamic stepping Details Fwd HTs, back stepping- In PT Equipment hallway near rail Comments slight sways and L foot scuff, decreased with cues for increase VARGHESE, posture, TA and DF foot clearance and soft stepping for community gait safety. Corner balance ex's Details Feet together, Discussion Semi -Tandem stance. Surface Level Equipment Corner & heavy chair, GB. Comments Discussion review end tx- review next tx. PT-OP-T Assessment and Plan Start: 12/03/24 18:09 Freq: Status: Active Protocol: Document 01/11/25 11:34 SP (Rec: 01/11/25 12:33 SP [id number]) Physical Therapy Assessment Goals Three Impairment Pain and clumsiness of R LE with walking Short Term Goal (STG) Improve R LE strength with pt able to walk with reported less clumsiness. 12/16/2024 Patient reports she feels slighlty less clumsy with ambulation, feels like right leg is moving straighter . 12/23/2024 Pt reports awakening w/ increased R foot numbness which improves throughout treatment session today. It's waking back up. 12/30/24: progression: trialed in PT tandem walking in hallway finger glide> PRN cues for tall posture, TA and slower pacing feel 2 ft of other, improved with reps less UE support. 01/03/25: Pt reporting walking a straighter path with spouse and her not feeling like she has to hang onto him for safety as much as when she first started therapy. 01/11/25: first think in am more clumsi, later day improves, when she walks faster outside is better. IF takes longer walk [place] neighborhood 4-5 blocks and back, notices little viering but no LOB she does get of breath before tires, so sits on bench at [address] rest. STG Duration 01/20/25 progressing 01/16/25 Aluminum Boat Inspector Goal (LTG) Modify walking gait and time as needed to eliminate R LE pain walking. 01/03/25: R leg pain behind the knee and down lateral side of leg to ankle (foot numb all the time) at nighttime only. No pain with walking. After doing stairs, her R calf area was painful and she was very SOB. 01/16/25: no pain just dull ache in R lateral calf, still gets post ex, gets better but not fully goes away with walks or seated resisted abd LTG Duration 03/03/25 revisited more ache (not pain since 01/06/25 Two Impairment Decreased gait stability Short Term Goal (STG) Improve balance to decrease swerving with gait. 01/03/25: Pt able to walk without swerving 10' x 4. Swerving after ~ 60-80'. STG Duration 01/20/25 progressed 01/03/25 Aluminum Boat Inspector Goal (LTG) Improve gait stability to remove swerving and akward leg spasms while walking. (TUG 20 secs on 12/26/24) 01/03/25: Pt states spouse feels she is not swerving as much on her walk. LTG Duration 03/03/25 progressing One Impairment Pt lacks appropriate self are home exercise program (HEP) Short Term Goal (STG) Pt will be able to participate in a self care corner balance HEP. 12/16/2024 Patient reports she is performing HEP every day as reviewed by PT previous sessions. 12/20/24: Initiated corner balance SLS ex. 12/26/24: Initiated corner tandem stance if spouse can guard pt for safety. \ 12/30/24: continued corner bal NBOS, tandem, SLS, able to compelete HTs and EC NBOS slight sway self recovery. 01/16/25: worked on fwd HTs and back stepping hallway in PT only, slight sways but no LOB, cued DF heel toe and softer stepping. STG Duration 01/20/25 progressed 01/16/25 Aluminum Boat Inspector Goal (LTG) Pt will be independent on a self care HEP to improve core & R LE strength. 12/08/24: Modified ex to increase to 6 reps and placed trunk rot on hold. 12/20/24: HEP: LB program: Neutral spine (Pelvic Tilt, TA , Mutifidi), Heel slides, Heel slides & SLR. Issued Handouts: Body mechanics Basics and for Daily activities, and for log roll transfer. 01/16/25: hand written on personal [employer] ([employer]) personal HO: resisted side stepping and reviwe past resisted seated ABD. LTG Duration 03/03/25 progressed 01/16/25 Assessment Summary Assessment Pt improves stability with resisted standing ex and progressed dynamic stepping in hallway unsupported today with cues for posture, DF heel toe, TA and increased VARGHESE, L foot scuffed x2 improved more midline alignment and softer stepping. Continues to tolerate increased resistance on bike and shuttle recovery for LE strengthening no UE support. Pt would benefit from continued LE strength and dynamic balance for viering recovery midline future tx. Physical Therapy Plan Frequency and Duration Frequency of Treatment 2x/Week Duration of treatment (weeks) 12 Plan of Care Start Date 01/03/25 Plan of Care End Date 03/03/25 Therapeutic Interventions Therapeutic Interventions Balance Training,Gait Training ,Home Exercise Program,Manual Therapy,Neuromuscular Re- education,Self-Care/Home Management,Soft Tissue Mobilization,Therapeutic Activities,Therapeutic Exercises Modalities Electric Stimulation,Hot Packs Next Visit Focus/Plan Next Note Type Treatment Note Next Visit Plan Cont 2x/wk, Sister having surgery, may need to reduce to 1x/wk as pt might be in [place]. Next per PT POC: Might try to carefully Initiate [place] T/S extension ex's - Caution due to Grade 1 anterolisthesis of L3 on L4 (note: retrolisthesis at L1 on L2, L2 on L3 and L5 on S1). Next: STM to R lateral lower leg to decr pain & Recheck response to TB and tandem bal walking progression in PT only finger glide wall. POC: Strengthen LE's to improve balance (in neutral spine trial hip and HS curls standing AROM> leg wt or resisted side stepping) and safety with gait. Assess need for Gentle sacral balancing ( caution: osteoporosis & anteriolisthesis) for LBP reduction. Pt education: Posture & Review log roll/sit to stand as needed, and continue body mechanics (washing dishes and vacuuming addressed) ADLs. Might try MH/IFES of L/S to reduce neuro symptoms in R LE. Ther Ex: Hip stretches, when pain reduced, progress Core stab.
--- NOTE | 2025-01-17 16:22 | PT.OTN ---
Current Diagnoses Other chronic pain (01/17/25) Spondylosis without myelopathy or radiculopathy, lumbar region (01/17/25) Radiculopathy, lumbar region (01/17/25) Low back pain, unspecified (01/17/25) Physical Therapy Treatment Note PT-OP-A Visit Information Start: 12/03/24 18:09 Freq: Status: Active Protocol: Document 01/17/25 14:44 LRN (Rec: 01/17/25 16:21 LRN [id number]) Out-Patient Physical Therapy Visit Information Visit Information Visit Type Treatment Note Visit Start Time 14:44 Visit Stop Time 15:26 Visit Number 12 (02/09 with PN) Number of VICE PRESIDENT OF NURSING Visits 2 Evaluation Information Evaluation Date 12/05/24 Precautions Precautions Per intake form: Osteoporosis , SOB from pulmonary fibrosis, twisted bowel, breast implant . PT-OP-B Current Condition Start: 12/03/24 18:09 Freq: Status: Active Protocol: Document 12/05/24 13:00 LRN (Rec: 12/05/24 13:56 LRN [id number]) Current Condition History of Current Condition Onset Date 2 yrs ago Current Complaints R LE is now dull, annoying, achy pain, with worst part behind the knee. History of Current Condition Insidious onset of tingling in RLE and was given Vit D that didn't help. 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 Her PCP (Dr He) referred her to have an EMG and states her problem was not determined to be neurological, but coming from the spine. Early Jul [address] Hampton and had a cortisone injection in spine ~August 2024, with no change in symptoms. Just this morning she had a 2nd accupuncture appt by Dr. Castanon, and no long has the needles/pins feeling so he is now being referred to physical therapy. The R LE symptom is now a dull annoying achy pain , worst pain is behind the knee. She is able to sleep on her back or L side. R sidelie is uncomfortable due to R hip pain. Walking, pt feels like a rubber band is under the R foot all the way to the hip. When stepping feels like something is lifting it that she isn't controlling and she just follows her leg. She states her spouse says her R leg swings around (circumducts) walking. Prior Treatments and Tests Pt reports prior Accupuncture appts x 2, by Dr. Castanon. MRI 07/02/24 of L/S: mild levoscoliosis centered at L2, mild retrolisthesis of L1 on L2 and L2 on L3, Grade 1 anterolisthesis of L3 on L4, mild of L5 on S1. Multilevel disc bulge and desiccation and multilevel central canal stenosis in the lumbar spine. Active small Schmorl's node at inferior endplate of T11. Future Testing and Treatments Planned Next Dr. Castanon accupuncture appt is 12/16/24. Treatment Goals Patient/Caregiver Goals Pt goals: - Eliminate R LE pain to go for walk w/o having akward leg spasms. - Remove the clumsiness/ swerving while walking and ache in R LE. - agreeable to a HEP. Personal Factors Other Personal Factors That May Effect SOB from Pulmonary Fibrosis, Therapy/Recovery Thyroid disorder, Used to walk daily, States few months ago in pulmonary rehab she exercised 90 minutes including walking 3x/wk (12 wks). PT-OP-C Subjective Start: 12/03/24 18:09 Freq: Status: Active Protocol: Document 01/17/25 14:44 LRN (Rec: 01/17/25 16:21 LRN [id number]) OP-PT Subjective Patient Comments Patient Comments States she is feeling more stable. The pain in the L leg is mild. At night has had more neuropathy and her leg feels cold (late afternoon), then burning, and then starts to itch. She puts ice on the legs and the sensation calms down after 1-2 hrs. PT-OP-E Functional Tests Start: 12/03/24 18:09 Freq: Status: Active Protocol: Document 01/17/25 14:44 LRN (Rec: 01/17/25 16:21 LRN [id number]) Functional Tests 2 Minute Walk Test Distance 358 ft, 10 in Device Used None Comments ~2-3x excessive sway during gait PT-OP-G Mobility & Gait Start: 12/03/24 18:09 Freq: Status: Active Protocol: Document 12/05/24 13:00 LRN (Rec: 12/05/24 13:56 LRN [id number]) OP Gait Assessment Gait Gait Assistance Required: Independent Able to Maintain Weight Bearing Status Yes During Gait Assistive Devices Assistive Device None Gait Deviations General Gait Pattern Decreased Stride Length, Decreased Feet Clearance Factors Limiting Gait Function Factors Limiting Gait Function Incoordination,Pain Comments Gait Comments Occasional swinging out of R LE during swing through phase. PT-OP-H Neuro Start: 12/03/24 18:09 Freq: Status: Active Protocol: Document 12/05/24 13:00 LRN (Rec: 12/05/24 13:56 LRN [id number]) Sensation Evaluation Gross Sensation Gross Sensation WNL Deep Tendon Reflex & Clonus Assessment Deep Tendon Reflex Left Achilles Deep Tendon Reflex 2+ Normal Right Achilles Deep Tendon Reflex 3+ Normal But Brisk Bilateral Patellar Deep Tendon Reflex 3+ Normal But Brisk PT-OP-J Posture/Palpation/Skin Start: 12/03/24 18:09 Freq: Status: Active Protocol: Document 12/05/24 13:00 LRN (Rec: 12/05/24 13:56 LRN [id number]) Posture Evaluation Position Standing Head/C-Spine Posture Side Bent Left,Forward Head L-Spine Posture Shifted Left Shoulder Posture (R) Elevated Arm Posture (L) Internally Rotated,(R) Internally Rotated Pelvis Posture (R) Iliac Crest Superior,(L) PSIS Posterior Hip Posture (L) Externally Rotated Ankle/Foot Posture (L) Calcaneal Inversion Palpation Assessment Location R LE Palpation Location Normal sensation without pain complaints Low back Palpation Location R SIJ, gluteals Palpation Findings Tenderness PT-OP-K Range of Motion Start: 12/03/24 18:09 Freq: Status: Active Protocol: Document 12/26/24 13:52 LRN (Rec: 12/26/24 14:35 LRN [id number]) Lumbar Spine Range of Motion Lumbar Spine Active Degrees Testing Position Standing Flexion 110 Extension 5 Rotation Left 30 Rotation Right 10 Lateral Flexion Left 10 Lateral Flexion Right 7 PT-OP-L Special Tests Start: 12/03/24 18:09 Freq: Status: Active Protocol: Document 12/05/24 13:00 LRN (Rec: 12/05/24 13:56 LRN [id number]) Special Tests Lumbar Spine Special Tests Manual Traction Test Results - Comments No change with R LE pain Straight Leg Raise Test Results - Comments Mikael is 90 deg's w/o LE pain onset Slump Test Results - bilaterally Comments No change in sensation or pain Vertical Spine Loading Test Results - Comments No change in symptoms PT-OP-M Strength Start: 12/03/24 18:09 Freq: Status: Active Protocol: Document 12/13/24 13:46 LRN (Rec: 12/13/24 14:32 LRN [id number]) Toe Strength Toe Manual Muscle Testing Left Great Toe Flexion 4+ Good+ Comments Pt is not able to perform MTP, PIP or DIP flexion Right Great Toe Flexion 5 Normal Comments Pt is not able to perform MTP, PIP or DIP flexion PT-OP-Q Treatments Start: 12/03/24 18:09 Freq: Status: Active Protocol: Document 01/17/25 14:44 LRN (Rec: 01/17/25 16:21 LRN [id number]) Therapeutic Exercises Other Exercises 2' walk Other Exercise Name Walk with Gait belt Equipment Used None Reps/Minutes 4' Comments Extra time taken to explain ex to acheive safety with gait. Therapeutic Activity Therapeutic Activity Transfer training Name Sup to sit log roll technique Reps/Minutes 4' Manual Therapy Treatment Soft Tissue Mobilization L lateral leg Body Location Lateral hip to ankle, posterolateral and anterolateral thigh, MFR IT band Mobilization Type Manual Lymphatic Drainage, Strumming Intensity/Depth Mild Body Position Supine R lateral leg Body Location Lateral hip to ankle, posterolateral and anterolateral thigh, MFR IT band Mobilization Type Myofascial Release,Strumming Intensity/Depth Mild Body Position Supine PT-OP-T Assessment and Plan Start: 12/03/24 18:09 Freq: Status: Active Protocol: Document 01/17/25 14:44 LRN (Rec: 01/17/25 16:21 LRN [id number]) Physical Therapy Assessment Goals Three Impairment Pain and clumsiness of R LE with walking Short Term Goal (STG) Improve R LE strength with pt able to walk with reported less clumsiness. 12/16/2024 Patient reports she feels slighlty less clumsy with ambulation, feels like right leg is moving straighter . 12/23/2024 Pt reports awakening w/ increased R foot numbness which improves throughout treatment session today. It's waking back up. 12/30/24: progression: trialed in PT tandem walking in hallway finger glide> PRN cues for tall posture, TA and slower pacing feel 2 ft of other, improved with reps less UE support. 01/03/25: Pt reporting walking a straighter path with spouse and her not feeling like she has to hang onto him for safety as much as when she first started therapy. 01/11/25: first think in am more clumsi, later day improves, when she walks faster outside is better. IF takes longer walk [place] neighborhood 4-5 blocks and back, notices little viering but no LOB she does get of breath before tires, so sits on bench at [facility] Passage rest. STG Duration 01/20/25 progressing 01/16/25 Nurse Emergency Room Goal (LTG) Modify walking gait and time as needed to eliminate R LE pain walking. 01/03/25: R leg pain behind the knee and down lateral side of leg to ankle (foot numb all the time) at nighttime only. No pain with walking. After doing stairs, her R calf area was painful and she was very SOB. 01/16/25: no pain just dull ache in R lateral calf, still gets post ex, gets better but not fully goes away with walks or seated resisted abd LTG Duration 03/03/25 revisited more ache (not pain since 01/06/25 Two Impairment Decreased gait stability Short Term Goal (STG) Improve balance to decrease swerving with gait. 01/03/25: Pt able to walk without swerving 10' x 4. Swerving after ~ 60-80'. STG Duration 01/20/25 progressed 01/03/25 Care Home Goal (LTG) Improve gait stability to remove swerving and akward leg spasms while walking. (TUG 20 secs on 12/26/24) 01/03/25: Pt states spouse feels she is not swerving as much on her walk. 01/17/25: 2 minute walk test: 358'10 LTG Duration 03/03/25 progressing One Impairment Pt lacks appropriate self are home exercise program (HEP) Short Term Goal (STG) Pt will be able to participate in a self care corner balance HEP. 12/16/2024 Patient reports she is performing HEP every day as reviewed by PT previous sessions. 12/20/24: Initiated corner balance SLS ex. 12/26/24: Initiated corner tandem stance if spouse can guard pt for safety. \ 12/30/24: continued corner bal NBOS, tandem, SLS, able to compelete HTs and EC NBOS slight sway self recovery. 01/16/25: worked on fwd HTs and back stepping hallway in PT only, slight sways but no LOB, cued DF heel toe and softer stepping. STG Duration 01/20/25 progressed 01/16/25 Nurse Emergency Room Goal (LTG) Pt will be independent on a self care HEP to improve core & R LE strength. 12/08/24: Modified ex to increase to 6 reps and placed trunk rot on hold. 12/20/24: HEP: LB program: Neutral spine (Pelvic Tilt, TA , Mutifidi), Heel slides, Heel slides & SLR. Issued Handouts: Body mechanics Basics and for Daily activities, and for log roll transfer. 01/16/25: hand written on personal [employer] HO: resisted side stepping and reviwe past resisted seated ABD. LTG Duration 03/03/25 progressed 01/16/25 Assessment Summary Assessment 84 yo female w/Lumbar disc herniation, chronic R LE sciatic pain (including R LBP first in AM), multi-level disc bulges and central canal stenosis in L/S; areas of both retro- and reuben-listhesis with lumbar shift L. Today, after STM to mikael LE's, the pt reported feeling legs felt better. 2 minute walk test is 358'10 with 2-3 times incr'd sway noted; no LOB. Physical Therapy Plan Frequency and Duration Frequency of Treatment 2x/Week Duration of treatment (weeks) 12 Plan of Care Start Date 01/03/25 Plan of Care End Date 03/03/25 Next Visit Focus/Plan Next Note Type Treatment Note Next Visit Plan Cont 2x/wk, Sister having surgery, may need to reduce to 1x/wk as pt might be in [place]. Next: Assess pain response to STM to LE's. Recheck response to TB and tandem bal walking progression in PT only finger glide wall. Progress LE strength and balance for improved safety with gait. POC: PT to try to carefully Initiate Lincoln T/S extension ex's - Caution due to Grade 1 anterolisthesis of L3 on L4 (retrolisthesis at L1 on L2, L2 on L3 and L5 on S1) . Strengthen LE's to improve balance (in neutral spine trial hip and HS curls standing AROM> leg wt or resisted side stepping) and safety with gait. Assess need for Gentle sacral balancing ( caution: osteoporosis & anteriolisthesis) for LBP reduction. Pt education: Posture & Review log roll/sit to stand as needed, and continue body mechanics (washing dishes and vacuuming addressed) ADLs. Might try MH/IFES of L/S to reduce neuro symptoms in R LE. Ther Ex: Hip stretches, when pain reduced, progress Core stab.
--- NOTE | 2025-01-19 13:46 | PT.OTN ---
Current Diagnoses Other chronic pain (01/19/25) Spondylosis without myelopathy or radiculopathy, lumbar region (01/19/25) Radiculopathy, lumbar region (01/19/25) Low back pain, unspecified (01/19/25) Physical Therapy Treatment Note PT-OP-A Visit Information Start: 12/03/24 18:09 Freq: Status: Active Protocol: Document 01/19/25 13:03 SP (Rec: 01/19/25 13:49 SP [id number]) Out-Patient Physical Therapy Visit Information Visit Information Visit Type Treatment Note Visit Start Time 13:04 Visit Stop Time 13:46 Visit Number 13 (03/11 with PN) Number of FRINGE KNOTTER Visits 1 Evaluation Information Evaluation Date 12/05/24 Precautions Precautions Per intake form: Osteoporosis , SOB from pulmonary fibrosis, twisted bowel, breast implant . PT-OP-B Current Condition Start: 12/03/24 18:09 Freq: Status: Active Protocol: Document 12/05/24 13:00 LRN (Rec: 12/05/24 13:56 LRN [id number]) Current Condition History of Current Condition Onset Date 2 yrs ago Current Complaints R LE is now dull, annoying, achy pain, with worst part behind the knee. History of Current Condition Insidious onset of tingling in RLE and was given Vit D that didn't help. 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 Her PCP (Dr He) referred her to have an EMG and states her problem was not determined to be neurological, but coming from the spine. Early Jul [address] Hampton and had a cortisone injection in spine ~August 2024, with no change in symptoms. Just this morning she had a 2nd accupuncture appt by Dr. Castanon, and no long has the needles/pins feeling so he is now being referred to physical therapy. The R LE symptom is now a dull annoying achy pain , worst pain is behind the knee. She is able to sleep on her back or L side. R sidelie is uncomfortable due to R hip pain. Walking, pt feels like a rubber band is under the R foot all the way to the hip. When stepping feels like something is lifting it that she isn't controlling and she just follows her leg. She states her spouse says her R leg swings around (circumducts) walking. Prior Treatments and Tests Pt reports prior Accupuncture appts x 2, by Dr. Castanon. MRI 07/02/24 of L/S: mild levoscoliosis centered at L2, mild retrolisthesis of L1 on L2 and L2 on L3, Grade 1 anterolisthesis of L3 on L4, mild of L5 on S1. Multilevel disc bulge and desiccation and multilevel central canal stenosis in the lumbar spine. Active small Schmorl's node at inferior endplate of T11. Future Testing and Treatments Planned Next Dr. Castanon accupuncture appt is 12/16/24. Treatment Goals Patient/Caregiver Goals Pt goals: - Eliminate R LE pain to go for walk w/o having akward leg spasms. - Remove the clumsiness/ swerving while walking and ache in R LE. - agreeable to a HEP. Personal Factors Other Personal Factors That May Effect SOB from Pulmonary Fibrosis, Therapy/Recovery Thyroid disorder, Used to walk daily, States few months ago in pulmonary rehab she exercised 90 minutes including walking 3x/wk (12 wks). PT-OP-C Subjective Start: 12/03/24 18:09 Freq: Status: Active Protocol: Document 01/19/25 13:03 SP (Rec: 01/19/25 13:49 SP [id number]) OP-PT Subjective Patient Comments Patient Comments Pt reported didn't realized Lateral legs were sore until after PT massage, her R full leg lower>upper leg fell sleep after got in car after last appt lasted about 20 min then went away felt fine, not experienced before. She reports has had less pain in hips since last tx. PT-OP-E Functional Tests Start: 12/03/24 18:09 Freq: Status: Active Protocol: Document 01/17/25 14:44 LRN (Rec: 01/17/25 16:21 LRN [id number]) Functional Tests 2 Minute Walk Test Distance 358 ft, 10 in Device Used None Comments ~2-3x excessive sway during gait PT-OP-G Mobility & Gait Start: 12/03/24 18:09 Freq: Status: Active Protocol: Document 12/05/24 13:00 LRN (Rec: 12/05/24 13:56 LRN [id number]) OP Gait Assessment Gait Gait Assistance Required: Independent Able to Maintain Weight Bearing Status Yes During Gait Assistive Devices Assistive Device None Gait Deviations General Gait Pattern Decreased Stride Length, Decreased Feet Clearance Factors Limiting Gait Function Factors Limiting Gait Function Incoordination,Pain Comments Gait Comments Occasional swinging out of R LE during swing through phase. PT-OP-H Neuro Start: 12/03/24 18:09 Freq: Status: Active Protocol: Document 12/05/24 13:00 LRN (Rec: 12/05/24 13:56 LRN [id number]) Sensation Evaluation Gross Sensation Gross Sensation WNL Deep Tendon Reflex & Clonus Assessment Deep Tendon Reflex Left Achilles Deep Tendon Reflex 2+ Normal Right Achilles Deep Tendon Reflex 3+ Normal But Brisk Bilateral Patellar Deep Tendon Reflex 3+ Normal But Brisk PT-OP-J Posture/Palpation/Skin Start: 12/03/24 18:09 Freq: Status: Active Protocol: Document 12/05/24 13:00 LRN (Rec: 12/05/24 13:56 LRN [id number]) Posture Evaluation Position Standing Head/C-Spine Posture Side Bent Left,Forward Head L-Spine Posture Shifted Left Shoulder Posture (R) Elevated Arm Posture (L) Internally Rotated,(R) Internally Rotated Pelvis Posture (R) Iliac Crest Superior,(L) PSIS Posterior Hip Posture (L) Externally Rotated Ankle/Foot Posture (L) Calcaneal Inversion Palpation Assessment Location R LE Palpation Location Normal sensation without pain complaints Low back Palpation Location R SIJ, gluteals Palpation Findings Tenderness PT-OP-K Range of Motion Start: 12/03/24 18:09 Freq: Status: Active Protocol: Document 12/26/24 13:52 LRN (Rec: 12/26/24 14:35 LRN [id number]) Lumbar Spine Range of Motion Lumbar Spine Active Degrees Testing Position Standing Flexion 110 Extension 5 Rotation Left 30 Rotation Right 10 Lateral Flexion Left 10 Lateral Flexion Right 7 PT-OP-L Special Tests Start: 12/03/24 18:09 Freq: Status: Active Protocol: Document 12/05/24 13:00 LRN (Rec: 12/05/24 13:56 LRN [id number]) Special Tests Lumbar Spine Special Tests Manual Traction Test Results - Comments No change with R LE pain Straight Leg Raise Test Results - Comments Mikael is 90 deg's w/o LE pain onset Slump Test Results - bilaterally Comments No change in sensation or pain Vertical Spine Loading Test Results - Comments No change in symptoms PT-OP-M Strength Start: 12/03/24 18:09 Freq: Status: Active Protocol: Document 12/13/24 13:46 LRN (Rec: 12/13/24 14:32 LRN [id number]) Toe Strength Toe Manual Muscle Testing Left Great Toe Flexion 4+ Good+ Comments Pt is not able to perform MTP, PIP or DIP flexion Right Great Toe Flexion 5 Normal Comments Pt is not able to perform MTP, PIP or DIP flexion PT-OP-Q Treatments Start: 12/03/24 18:09 Freq: Status: Active Protocol: Document 01/19/25 13:03 SP (Rec: 01/19/25 13:49 SP [id number]) Therapeutic Exercises Supine Exercises ITB stretch Supine Exercise Name next add Hamstring stretch Supine Exercise Name With Ankle ROM- reviewed (her [facility]) Side bilateral Equipment Used grasp behind thigh, lower leg lift Reps/Minutes 10 reps Piriformis stretch Supine Exercise Name HEP: Legs crossed>KTC, Cued same side at a time, focus R hip. Side bilateral Equipment Used grasp behind lifted leg Reps/Minutes 5 breathes Comments cued grasp 1 leg DKTC Supine Exercise Name reviewed (her [facility]) Reps/Minutes ~5 breathes Comments cued slow breath SKTC Supine Exercise Name reviewed (her [facility]) Side bilateral Reps/Minutes ~5 breathes Comments cued slow breath Prone Exercises [place] Ext Prone Exercise Name Trialed in PT only: 1. Prone on elbow 2. TA & LE ext lift Equipment Used 1 pillow under pelvis Reps/Minutes 5 SH x5 each and each Leg ext Comments Cued TA draw in prior to leg lift reports no pain reported Sitting Exercises [place] LAQ Sitting Exercise Name added to HEP /C HO Side bilateral Resistance 2# leg wt Reps/Minutes 30 reps alternating Comments cued controlled return start position Standing Exercises [place] LE ex Standing Exercise Name added to HEP: HS curl, Abuction, Mini Squat- /c HO Side bilateral Equipment Used behind chair contact support Reps/Minutes 30 alternating, mini squat and calf raises x10 Comments cued slow normal controlled range Neuro Re-Education Treatment Balance Activities [place] Tandem Balance Details Semitandem Equipment Hands over Chair on L & rail on R Comments Semitandem: B 60 sec each Tandem: L sec, R 2-3 sec Cued wt shift tall into front as well as back leg PT-OP-T Assessment and Plan Start: 12/03/24 18:09 Freq: Status: Active Protocol: Document 01/19/25 13:03 SP (Rec: 01/19/25 13:49 SP [id number]) Physical Therapy Assessment Goals Three Impairment Pain and clumsiness of R LE with walking Short Term Goal (STG) Improve R LE strength with pt able to walk with reported less clumsiness. 12/16/2024 Patient reports she feels slighlty less clumsy with ambulation, feels like right leg is moving straighter . 12/23/2024 Pt reports awakening w/ increased R foot numbness which improves throughout treatment session today. It's waking back up. 12/30/24: progression: trialed in PT tandem walking in hallway finger glide> PRN cues for tall posture, TA and slower pacing feel 2 ft of other, improved with reps less UE support. 01/03/25: Pt reporting walking a straighter path with spouse and her not feeling like she has to hang onto him for safety as much as when she first started therapy. 01/11/25: first think in am more clumsi, later day improves, when she walks faster outside is better. IF takes longer walk [place] neighborhood 4-5 blocks and back, notices little viering but no LOB she does get of breath before tires, so sits on bench at [address] rest. STG Duration 01/20/25 progressing 01/16/25 Senior Care Goal (LTG) Modify walking gait and time as needed to eliminate R LE pain walking. 01/03/25: R leg pain behind the knee and down lateral side of leg to ankle (foot numb all the time) at nighttime only. No pain with walking. After doing stairs, her R calf area was painful and she was very SOB. 01/16/25: no pain just dull ache in R lateral calf, still gets post ex, gets better but not fully goes away with walks or seated resisted abd LTG Duration 03/03/25 revisited more ache (not pain since 01/06/25 Two Impairment Decreased gait stability Short Term Goal (STG) Improve balance to decrease swerving with gait. 01/03/25: Pt able to walk without swerving 10' x 4. Swerving after ~ 60-80'. STG Duration 01/20/25 progressed 01/03/25 Hand Sole Sewer Goal (LTG) Improve gait stability to remove swerving and akward leg spasms while walking. (TUG 20 secs on 12/26/24) 01/03/25: Pt states spouse feels she is not swerving as much on her walk. 01/17/25: 2 minute walk test: 358'10 LTG Duration 03/03/25 progressing One Impairment Pt lacks appropriate self are home exercise program (HEP) Short Term Goal (STG) Pt will be able to participate in a self care corner balance HEP. 12/16/2024 Patient reports she is performing HEP every day as reviewed by PT previous sessions. 12/20/24: Initiated corner balance SLS ex. 12/26/24: Initiated corner tandem stance if spouse can guard pt for safety. \ 12/30/24: continued corner bal NBOS, tandem, SLS, able to compelete HTs and EC NBOS slight sway self recovery. 01/16/25: worked on fwd HTs and back stepping hallway in PT only, slight sways but no LOB, cued DF heel toe and softer stepping. STG Duration 01/20/25 progressed 01/16/25 Hand Sole Sewer Goal (LTG) Pt will be independent on a self care HEP to improve core & R LE strength. 12/08/24: Modified ex to increase to 6 reps and placed trunk rot on hold. 12/20/24: HEP: LB program: Neutral spine (Pelvic Tilt, TA , Mutifidi), Heel slides, Heel slides & SLR. Issued Handouts: Body mechanics Basics and for Daily activities, and for log roll transfer. 01/16/25: hand written on personal [employer] personal HO: resisted side stepping and reviwe past resisted seated ABD. 01/19/25: added [place] LE ex: LAQ, ABD, HC curl, HR, Mini squat, Semitandem stance LTG Duration 03/03/25 progressed 01/19/25 Assessment Summary Assessment Pt had good response to stretching HEP review, trialed prone extension with no adverse affects when provided cues for TA draw in slow small range, in PT only. Progressed [place] LE strengthening with 2 # leg wts and review semitandem stance balance with no adverse affects, just reported muscular tiring. Physical Therapy Plan Frequency and Duration Frequency of Treatment 2x/Week Duration of treatment (weeks) 12 Plan of Care Start Date 01/03/25 Plan of Care End Date 03/03/25 Therapeutic Interventions Therapeutic Interventions Balance Training,Gait Training ,Home Exercise Program,Manual Therapy,Neuromuscular Re- education,Self-Care/Home Management,Soft Tissue Mobilization,Therapeutic Activities,Therapeutic Exercises Modalities Electric Stimulation,Hot Packs Next Visit Focus/Plan Next Note Type Treatment Note Next Visit Plan Cont 2x/wk, soon Sister might having surgery, may need to reduce to 1x/wk as pt might be in [place]. Sensitive to manual. Recheck response to wt [place] HEP and tandem bal walking progression in PT only finger glide wall for gait bal progression. POC: PT to try to carefully Initiate [place] T/S extension ex's - Caution due to Grade 1 anterolisthesis of L3 on L4 (retrolisthesis at L1 on L2, L2 on L3 and L5 on S1) . Strengthen LE's to improve balance (in neutral spine trial hip and HS curls standing AROM> leg wt or resisted side stepping) and safety with gait. Assess need for Gentle sacral balancing ( caution: osteoporosis & anteriolisthesis) for LBP reduction. Pt education: Posture & Review log roll/sit to stand as needed, and continue body mechanics (washing dishes and vacuuming addressed) ADLs. Might try MH/IFES of L/S to reduce neuro symptoms in R LE. Ther Ex: Hip stretches, when pain reduced, progress Core stab.
--- NOTE | 2025-01-24 15:50 | PT.OTN ---
Current Diagnoses Other chronic pain (01/24/25) Spondylosis without myelopathy or radiculopathy, lumbar region (01/24/25) Radiculopathy, lumbar region (01/24/25) Low back pain, unspecified (01/24/25) Physical Therapy Treatment Note PT-OP-A Visit Information Start: 12/03/24 18:09 Freq: Status: Active Protocol: Document 01/24/25 14:34 LRN (Rec: 01/24/25 15:50 LRN [id number]) Out-Patient Physical Therapy Visit Information Visit Information Visit Type Treatment Note Visit Start Time 14:34 Visit Stop Time 15:15 Visit Number 14 (04/11 with PN) Evaluation Information Evaluation Date 12/05/24 Precautions Precautions Per intake form: Osteoporosis , SOB from pulmonary fibrosis, twisted bowel, breast implant . PT-OP-B Current Condition Start: 12/03/24 18:09 Freq: Status: Active Protocol: Document 12/05/24 13:00 LRN (Rec: 12/05/24 13:56 LRN [id number]) Current Condition History of Current Condition Onset Date 2 yrs ago Current Complaints R LE is now dull, annoying, achy pain, with worst part behind the knee. History of Current Condition Insidious onset of tingling in RLE and was given Vit D that didn't help. 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 Her PCP (Dr He) referred her to have an EMG and states her problem was not determined to be neurological, but coming from the spine. Early Jul [address] Hampton and had a cortisone injection in spine ~August 2024, with no change in symptoms. Just this morning she had a 2nd accupuncture appt by Dr. Castanon, and no long has the needles/pins feeling so he is now being referred to physical therapy. The R LE symptom is now a dull annoying achy pain , worst pain is behind the knee. She is able to sleep on her back or L side. R sidelie is uncomfortable due to R hip pain. Walking, pt feels like a rubber band is under the R foot all the way to the hip. When stepping feels like something is lifting it that she isn't controlling and she just follows her leg. She states her spouse says her R leg swings around (circumducts) walking. Prior Treatments and Tests Pt reports prior Accupuncture appts x 2, by Dr. Castanon. MRI 07/02/24 of L/S: mild levoscoliosis centered at L2, mild retrolisthesis of L1 on L2 and L2 on L3, Grade 1 anterolisthesis of L3 on L4, mild of L5 on S1. Multilevel disc bulge and desiccation and multilevel central canal stenosis in the lumbar spine. Active small Schmorl's node at inferior endplate of T11. Future Testing and Treatments Planned Next Dr. Castanon accupuncture appt is 12/16/24. Treatment Goals Patient/Caregiver Goals Pt goals: - Eliminate R LE pain to go for walk w/o having akward leg spasms. - Remove the clumsiness/ swerving while walking and ache in R LE. - agreeable to a HEP. Personal Factors Other Personal Factors That May Effect SOB from Pulmonary Fibrosis, Therapy/Recovery Thyroid disorder, Used to walk daily, States few months ago in pulmonary rehab she exercised 90 minutes including walking 3x/wk (12 wks). PT-OP-C Subjective Start: 12/03/24 18:09 Freq: Status: Active Protocol: Document 01/24/25 14:34 LRN (Rec: 01/24/25 15:50 LRN [id number]) OP-PT Subjective Patient Comments Patient Comments After last session her R leg felt it was asleep and felt heavy like a log, but after 15 ' felt like typical (numb in ball of feet and toes). She reports today is a good day, toes feel cold and tingly. Went for a walk and did 5 flights of stairs for exercise . 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 States her condition changes by the hour. PT-OP-E Functional Tests Start: 12/03/24 18:09 Freq: Status: Active Protocol: Document 01/17/25 14:44 LRN (Rec: 01/17/25 16:21 LRN [id number]) Functional Tests 2 Minute Walk Test Distance 358 ft, 10 in Device Used None Comments ~2-3x excessive sway during gait PT-OP-G Mobility & Gait Start: 12/03/24 18:09 Freq: Status: Active Protocol: Document 12/05/24 13:00 LRN (Rec: 12/05/24 13:56 LRN [id number]) OP Gait Assessment Gait Gait Assistance Required: Independent Able to Maintain Weight Bearing Status Yes During Gait Assistive Devices Assistive Device None Gait Deviations General Gait Pattern Decreased Stride Length, Decreased Feet Clearance Factors Limiting Gait Function Factors Limiting Gait Function Incoordination,Pain Comments Gait Comments Occasional swinging out of R LE during swing through phase. PT-OP-H Neuro Start: 12/03/24 18:09 Freq: Status: Active Protocol: Document 12/05/24 13:00 LRN (Rec: 12/05/24 13:56 LRN [id number]) Sensation Evaluation Gross Sensation Gross Sensation WNL Deep Tendon Reflex & Clonus Assessment Deep Tendon Reflex Left Achilles Deep Tendon Reflex 2+ Normal Right Achilles Deep Tendon Reflex 3+ Normal But Brisk Bilateral Patellar Deep Tendon Reflex 3+ Normal But Brisk PT-OP-J Posture/Palpation/Skin Start: 12/03/24 18:09 Freq: Status: Active Protocol: Document 12/05/24 13:00 LRN (Rec: 12/05/24 13:56 LRN [id number]) Posture Evaluation Position Standing Head/C-Spine Posture Side Bent Left,Forward Head L-Spine Posture Shifted Left Shoulder Posture (R) Elevated Arm Posture (L) Internally Rotated,(R) Internally Rotated Pelvis Posture (R) Iliac Crest Superior,(L) PSIS Posterior Hip Posture (L) Externally Rotated Ankle/Foot Posture (L) Calcaneal Inversion Palpation Assessment Location R LE Palpation Location Normal sensation without pain complaints Low back Palpation Location R SIJ, gluteals Palpation Findings Tenderness PT-OP-K Range of Motion Start: 12/03/24 18:09 Freq: Status: Active Protocol: Document 12/26/24 13:52 LRN (Rec: 12/26/24 14:35 LRN [id number]) Lumbar Spine Range of Motion Lumbar Spine Active Degrees Testing Position Standing Flexion 110 Extension 5 Rotation Left 30 Rotation Right 10 Lateral Flexion Left 10 Lateral Flexion Right 7 PT-OP-L Special Tests Start: 12/03/24 18:09 Freq: Status: Active Protocol: Document 12/05/24 13:00 LRN (Rec: 12/05/24 13:56 LRN [id number]) Special Tests Lumbar Spine Special Tests Manual Traction Test Results - Comments No change with R LE pain Straight Leg Raise Test Results - Comments Mikael is 90 deg's w/o LE pain onset Slump Test Results - bilaterally Comments No change in sensation or pain Vertical Spine Loading Test Results - Comments No change in symptoms PT-OP-M Strength Start: 12/03/24 18:09 Freq: Status: Active Protocol: Document 12/13/24 13:46 LRN (Rec: 12/13/24 14:32 LRN [id number]) Toe Strength Toe Manual Muscle Testing Left Great Toe Flexion 4+ Good+ Comments Pt is not able to perform MTP, PIP or DIP flexion Right Great Toe Flexion 5 Normal Comments Pt is not able to perform MTP, PIP or DIP flexion PT-OP-Q Treatments Start: 12/03/24 18:09 Freq: Status: Active Protocol: Document 01/24/25 14:34 LRN (Rec: 01/24/25 15:50 LRN [id number]) Gym Equipment Shuttle Recovery Unilateral Squats Details Neutral spine, knees a little less than 90/90 Resistance 37# Shuttle Recovery Platform Stable Reps/Time 15x Bilateral Squats Details Neutral spine, knees a little less than 90/90 Resistance 50# Shuttle Recovery Platform Stable Reps/Time 10x 3 Therapeutic Exercises Supine Exercises Deep Breathing Supine Exercise Name Deep Breathing at end of therapy as a rest for numbness in legs. Reps/Minutes 2' NS training Supine Exercise Name NS training Sitting Exercises [place] LAQ Sitting Exercise Name added to HEP /C HO Side bilateral Resistance 2# leg wt Reps/Minutes 30 reps alternating Comments cued controlled return start position Standing Exercises [place] LE ex Standing Exercise Name Modified: HS curl w/o hold, Abd mini lift, Mini Squat Side bilateral Equipment Used behind chair contact support Reps/Minutes 15x each alternating, mini squat and calf raises x10 Comments cued slow normal controlled range Therapeutic Activity Therapeutic Activity Squat mechanics Name Mini squat mechanics training: free standing, with use of mirror & w/wall Reps/Minutes 10' PT-OP-T Assessment and Plan Start: 12/03/24 18:09 Freq: Status: Active Protocol: Document 01/24/25 14:34 LRN (Rec: 03/25/25 15:50 LRN [id number]) Physical Therapy Assessment Goals Three Impairment Pain and clumsiness of R LE with walking Short Term Goal (STG) Improve R LE strength with pt able to walk with reported less clumsiness. 12/16/2024 Patient reports she feels slighlty less clumsy with ambulation, feels like right leg is moving straighter . 12/23/2024 Pt reports awakening w/ increased R foot numbness which improves throughout treatment session today. It's waking back up. 12/30/24: progression: trialed in PT tandem walking in hallway finger glide> PRN cues for tall posture, TA and slower pacing feel 2 ft of other, improved with reps less UE support. 01/03/25: Pt reporting walking a straighter path with spouse and her not feeling like she has to hang onto him for safety as much as when she first started therapy. 01/11/25: first think in am more clumsi, later day improves, when she walks faster outside is better. IF takes longer walk [place] neighborhood 4-5 blocks and back, notices little viering but no LOB she does get of breath before tires, so sits on bench at [address] rest. STG Duration 01/20/25 progressing 01/16/25 Prison Goal (LTG) Modify walking gait and time as needed to eliminate R LE pain walking. 01/03/25: R leg pain behind the knee and down lateral side of leg to ankle (foot numb all the time) at nighttime only. No pain with walking. After doing stairs, her R calf area was painful and she was very SOB. 01/16/25: no pain just dull ache in R lateral calf, still gets post ex, gets better but not fully goes away with walks or seated resisted abd LTG Duration 03/03/25 revisited more ache (not pain since 01/06/25) Two Impairment Decreased gait stability Short Term Goal (STG) Improve balance to decrease swerving with gait. 01/03/25: Pt able to walk without swerving 10' x 4. Swerving after ~ 60-80'. STG Duration 01/20/25 progressed 01/03/25 Prison Goal (LTG) Improve gait stability to remove swerving and akward leg spasms while walking. (TUG 20 secs on 12/26/24) 01/03/25: Pt states spouse feels she is not swerving as much on her walk. 01/17/25: 2 minute walk test: 358'10 LTG Duration 03/03/25 progressing One Impairment Pt lacks appropriate self are home exercise program (HEP) Short Term Goal (STG) Pt will be able to participate in a self care corner balance HEP. 12/16/2024 Patient reports she is performing HEP every day as reviewed by PT previous sessions. 12/20/24: Initiated corner balance SLS ex. 12/26/24: Initiated corner tandem stance if spouse can guard pt for safety. \ 12/30/24: continued corner bal NBOS, tandem, SLS, able to compelete HTs and EC NBOS slight sway self recovery. 01/16/25: worked on fwd HTs and back stepping hallway in PT only, slight sways but no LOB, cued DF heel toe and softer stepping. STG Duration 01/20/25 progressed 01/16/25 [employer] Developer Goal (LTG) Pt will be independent on a self care HEP to improve core & R LE strength. 12/08/24: Modified ex to increase to 6 reps and placed trunk rot on hold. 12/20/24: HEP: LB program: Neutral spine (Pelvic Tilt, TA , Mutifidi), Heel slides, Heel slides & SLR. Issued Handouts: Body mechanics Basics and for Daily activities, and for log roll transfer. 01/16/25: hand written on personal Context Matters personal HO: resisted side stepping and reviwe past resisted seated ABD. 01/19/25: added [place] LE ex: LAQ, ABD, HC curl, HR, Mini squat, Semitandem stance LTG Duration 03/03/25 progressed 01/19/25 Assessment Summary Assessment 84 yo female w/Lumbar disc herniation, chronic R LE sciatic pain (including R LBP first in AM), multi-level disc bulges and central canal stenosis in L/S; areas of both retro- and reuben-listhesis with lumbar shift L. Today pt reports heaviness in legs and numbness/tingling of ball of feet and toes; resting at the end of treatmemnt in supine or with ankle/toe AROM did not change the neuropathy of the feet. Pt demonstrates poor squat mechanics w/exercise. Physical Therapy Plan Frequency and Duration Frequency of Treatment 2x/Week Duration of treatment (weeks) 12 Plan of Care Start Date 01/03/25 Plan of Care End Date 03/03/25 Next Visit Focus/Plan Next Note Type Treatment Note Next Visit Plan Cont 2x/wk, soon Sister might having surgery, may need to reduce to 1x/wk as pt might be in [place]. ?Still sensitive to manual therapy. Recheck response to tandem bal walking progression in PT only finger glide wall for gait bal progression. Progress as appropriate core stabilization and retrain for proper squat mechanics. Strengthen LE's to improve balance (in neutral spine trial hip and HS curls standing AROM> leg wt or resisted side stepping) and safety with gait. POC: Ther Ex: Hip stretches, when pain reduced. Pt education: Posture & Review log roll/sit to stand as needed, and continue body mechanics (washing dishes and vacuuming addressed) ADLs. PT to try to carefully Initiate [place] T/S extension ex's - Caution due to Grade 1 anterolisthesis of L3 on L4 (retrolisthesis at L1 on L2, L2 on L3 and L5 on S1) . Assess need for Gentle sacral balancing (caution: osteoporosis & anteriolisthesis) for LBP reduction. Might try MH/IFES of L/S to reduce neuro symptoms in R LE. .
--- NOTE | 2025-01-27 12:16 | PT.OTN ---
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 PT-OP-B Current Condition Start: 12/03/24 18:09 Freq: Status: Active Protocol: Document 12/05/24 13:00 LRN (Rec: 12/05/24 13:56 LRN [id number]) Current Condition History of Current Condition Onset Date 2 yrs ago Current Complaints R LE is now dull, annoying, achy pain, with worst part behind the knee. History of Current Condition Insidious onset of tingling in RLE and was given Vit D that didn't help. 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 Her PCP (Dr He) referred her to have an EMG and states her problem was not determined to be neurological, but coming from the spine. Early Jul [address] Hampton and had a cortisone injection in spine ~August 2024, with no change in symptoms. Just this morning she had a 2nd accupuncture appt by Dr. Castanon, and no long has the needles/pins feeling so he is now being referred to physical therapy. The R LE symptom is now a dull annoying achy pain , worst pain is behind the knee. She is able to sleep on her back or L side. R sidelie is uncomfortable due to R hip pain. Walking, pt feels like a rubber band is under the R foot all the way to the hip. When stepping feels like something is lifting it that she isn't controlling and she just follows her leg. She states her spouse says her R leg swings around (circumducts) walking. Prior Treatments and Tests Pt reports prior Accupuncture appts x 2, by Dr. Castanon. MRI 07/02/24 of L/S: mild levoscoliosis centered at L2, mild retrolisthesis of L1 on L2 and L2 on L3, Grade 1 anterolisthesis of L3 on L4, mild of L5 on S1. Multilevel disc bulge and desiccation and multilevel central canal stenosis in the lumbar spine. Active small Schmorl's node at inferior endplate of T11. Future Testing and Treatments Planned Next Dr. Castanon accupuncture appt is 12/16/24. Treatment Goals Patient/Caregiver Goals Pt goals: - Eliminate R LE pain to go for walk w/o having akward leg spasms. - Remove the clumsiness/ swerving while walking and ache in R LE. - agreeable to a HEP. Personal Factors Other Personal Factors That May Effect SOB from Pulmonary Fibrosis, Therapy/Recovery Thyroid disorder, Used to walk daily, States few months ago in pulmonary rehab she exercised 90 minutes including walking 3x/wk (12 wks). PT-OP-C Subjective Start: 12/03/24 18:09 Freq: Status: Active Protocol: Document 01/27/25 11:34 SP (Rec: 01/27/25 12:30 SP [id number]) OP-PT Subjective Patient Comments Patient Comments Pt reported had flare up of neuropathy after last tx with PT. She noticed she had senstive trigger points down R hip to lateral lower leg when doing self STMs, especially lateral ankle pretty sensitive . She wants to review spinal alignment on wall while also sittting on chair as discussed in PT, found hard to do PT-OP-E Functional Tests Start: 12/03/24 18:09 Freq: Status: Active Protocol: Document 01/17/25 14:44 LRN (Rec: 01/17/25 16:21 LRN [id number]) Functional Tests 2 Minute Walk Test Distance 358 ft, 10 in Device Used None Comments ~2-3x excessive sway during gait PT-OP-G Mobility & Gait Start: 12/03/24 18:09 Freq: Status: Active Protocol: Document 12/05/24 13:00 LRN (Rec: 12/05/24 13:56 LRN [id number]) OP Gait Assessment Gait Gait Assistance Required: Independent Able to Maintain Weight Bearing Status Yes During Gait Assistive Devices Assistive Device None Gait Deviations General Gait Pattern Decreased Stride Length, Decreased Feet Clearance Factors Limiting Gait Function Factors Limiting Gait Function Incoordination,Pain Comments Gait Comments Occasional swinging out of R LE during swing through phase. PT-OP-H Neuro Start: 12/03/24 18:09 Freq: Status: Active Protocol: Document 12/05/24 13:00 LRN (Rec: 12/05/24 13:56 LRN [id number]) Sensation Evaluation Gross Sensation Gross Sensation WNL Deep Tendon Reflex & Clonus Assessment Deep Tendon Reflex Left Achilles Deep Tendon Reflex 2+ Normal Right Achilles Deep Tendon Reflex 3+ Normal But Brisk Bilateral Patellar Deep Tendon Reflex 3+ Normal But Brisk PT-OP-J Posture/Palpation/Skin Start: 12/03/24 18:09 Freq: Status: Active Protocol: Document 12/05/24 13:00 LRN (Rec: 12/05/24 13:56 LRN [id number]) Posture Evaluation Position Standing Head/C-Spine Posture Side Bent Left,Forward Head L-Spine Posture Shifted Left Shoulder Posture (R) Elevated Arm Posture (L) Internally Rotated,(R) Internally Rotated Pelvis Posture (R) Iliac Crest Superior,(L) PSIS Posterior Hip Posture (L) Externally Rotated Ankle/Foot Posture (L) Calcaneal Inversion Palpation Assessment Location R LE Palpation Location Normal sensation without pain complaints Low back Palpation Location R SIJ, gluteals Palpation Findings Tenderness PT-OP-K Range of Motion Start: 12/03/24 18:09 Freq: Status: Active Protocol: Document 12/26/24 13:52 LRN (Rec: 12/26/24 14:35 LRN [id number]) Lumbar Spine Range of Motion Lumbar Spine Active Degrees Testing Position Standing Flexion 110 Extension 5 Rotation Left 30 Rotation Right 10 Lateral Flexion Left 10 Lateral Flexion Right 7 PT-OP-L Special Tests Start: 12/03/24 18:09 Freq: Status: Active Protocol: Document 12/05/24 13:00 LRN (Rec: 12/05/24 13:56 LRN [id number]) Special Tests Lumbar Spine Special Tests Manual Traction Test Results - Comments No change with R LE pain Straight Leg Raise Test Results - Comments Mikael is 90 deg's w/o LE pain onset Slump Test Results - bilaterally Comments No change in sensation or pain Vertical Spine Loading Test Results - Comments No change in symptoms PT-OP-M Strength Start: 12/03/24 18:09 Freq: Status: Active Protocol: Document 12/13/24 13:46 LRN (Rec: 12/13/24 14:32 LRN [id number]) Toe Strength Toe Manual Muscle Testing Left Great Toe Flexion 4+ Good+ Comments Pt is not able to perform MTP, PIP or DIP flexion Right Great Toe Flexion 5 Normal Comments Pt is not able to perform MTP, PIP or DIP flexion PT-OP-Q Treatments Start: 12/03/24 18:09 Freq: Status: Active Protocol: Document 01/27/25 11:34 SP (Rec: 01/27/25 12:30 SP [id number]) Therapeutic Exercises Supine Exercises Deep Breathing Supine Exercise Name Deep Breathing at end of therapy as a rest for numbness in legs. Reps/Minutes 2' Comments verbal imagery working from head to toes heavy into table NS training Supine Exercise Name NS training Reps/Minutes hooklying 10 SH x10 Comments ASSOCI[employer] and TA draw in Sitting Exercises [place] LAQ Sitting Exercise Name reviewed Side bilateral Resistance 2# leg wt Reps/Minutes 30 reps alternating Comments cued TA draw in with controlled return start position Standing Exercises spinal wall posture Standing Exercise Name added to HEP /c HO Reps/Minutes 10 SHx 10 Comments cued Spinal roll up wall, LS toward wall, chin tuck, Humeral ER, scap [place] LE ex Standing Exercise Name Modified: Abd mini lift, Mini Squat Side bilateral Equipment Used rail support Reps/Minutes 20 reps alternating, mini squat and calf raises x10 Comments cued buttocks back hip hinge mini range Therapeutic Activity Therapeutic Activity Squat mechanics Name Sitting and Mini squat then STS mechanics training: yard stick then nothing Reps/Minutes 5' Comments Cued for spinal alignment elongation sitting: TS& LS use pillow support needed, TA draw in for LS support NS, chin tuck CS retraction neutral as performed on wall, carryover hip hinge STS with provided HOs Self-Care/Home Management Treatment Education Patient Education Body Mechanics,Home Exercise Program,Posture Other Education Issued HOs for spinal alignment, wall posture and carryover sitting and body mechanics squat to pear picker items. Utilized yard stick for self awareness in spinal alignment. PT-OP-T Assessment and Plan Start: 12/03/24 18:09 Freq: Status: Active Protocol: Document 01/27/25 11:34 SP (Rec: 01/27/25 12:30 SP [id number]) Physical Therapy Assessment Goals Three Impairment Pain and clumsiness of R LE with walking Short Term Goal (STG) Improve R LE strength with pt able to walk with reported less clumsiness. 12/16/2024 Patient reports she feels slighlty less clumsy with ambulation, feels like right leg is moving straighter . 12/23/2024 Pt reports awakening w/ increased R foot numbness which improves throughout treatment session today. It's waking back up. 12/30/24: progression: trialed in PT tandem walking in hallway finger glide> PRN cues for tall posture, TA and slower pacing feel 2 ft of other, improved with reps less UE support. 01/03/25: Pt reporting walking a straighter path with spouse and her not feeling like she has to hang onto him for safety as much as when she first started therapy. 01/11/25: first think in am more clumsi, later day improves, when she walks faster outside is better. IF takes longer walk [place] neighborhood 4-5 blocks and back, notices little viering but no LOB she does get of breath before tires, so sits on bench at [employer] rest. STG Duration 01/20/25 progressing 01/16/25 Halfway Goal (LTG) Modify walking gait and time as needed to eliminate R LE pain walking. 01/03/25: R leg pain behind the knee and down lateral side of leg to ankle (foot numb all the time) at nighttime only. No pain with walking. After doing stairs, her R calf area was painful and she was very SOB. 01/16/25: no pain just dull ache in R lateral calf, still gets post ex, gets better but not fully goes away with walks or seated resisted abd LTG Duration 03/03/25 revisited more ache (not pain since 01/06/25) Two Impairment Decreased gait stability Short Term Goal (STG) Improve balance to decrease swerving with gait. 01/03/25: Pt able to walk without swerving 10' x 4. Swerving after ~ 60-80'. STG Duration 01/20/25 progressed 01/03/25 Collar Stay Fuser Tender Goal (LTG) Improve gait stability to remove swerving and akward leg spasms while walking. (TUG 20 secs on 12/26/24) 01/03/25: Pt states spouse feels she is not swerving as much on her walk. 01/17/25: 2 minute walk test: 358'10 LTG Duration 03/03/25 progressing One Impairment Pt lacks appropriate self are home exercise program (HEP) Short Term Goal (STG) Pt will be able to participate in a self care corner balance HEP. 12/16/2024 Patient reports she is performing HEP every day as reviewed by PT previous sessions. 12/20/24: Initiated corner balance SLS ex. 12/26/24: Initiated corner tandem stance if spouse can guard pt for safety. \ 12/30/24: continued corner bal NBOS, tandem, SLS, able to compelete HTs and EC NBOS slight sway self recovery. 01/16/25: worked on fwd HTs and back stepping hallway in PT only, slight sways but no LOB, cued DF heel toe and softer stepping. STG Duration 01/20/25 progressed 01/16/25 Halfway Goal (LTG) Pt will be independent on a self care HEP to improve core & R LE strength. 12/08/24: Modified ex to increase to 6 reps and placed trunk rot on hold. 12/20/24: HEP: LB program: Neutral spine (Pelvic Tilt, TA , Mutifidi), Heel slides, Heel slides & SLR. Issued Handouts: Body mechanics Basics and for Daily activities, and for log roll transfer. 01/16/25: hand written on personal [employer] personal HO: resisted side stepping and reviwe past resisted seated ABD. 01/19/25: added [place] LE ex: LAQ, ABD, HC curl, HR, Mini squat, Semitandem stance LTG Duration 03/03/25 progressed 01/19/25 Assessment Summary Assessment Tx time spent on continued deep breathing for assist musculature relaxation at night. TA training supine for carryover spinal alignment. Instruction on spinal alignment wall posture then carryover squat/hip hinge mechancics use yard stick then without. See HOs provided. Pt verbalized better understnading and is using pillow behind back for spinal support. Better performance use yard stick for hip hinge mechanics. Physical Therapy Plan Frequency and Duration Frequency of Treatment 2x/Week Duration of treatment (weeks) 12 Plan of Care Start Date 01/03/25 Plan of Care End Date 03/03/25 Therapeutic Interventions Therapeutic Interventions Balance Training,Gait Training ,Home Exercise Program,Manual Therapy,Neuromuscular Re- education,Self-Care/Home Management,Soft Tissue Mobilization,Therapeutic Activities,Therapeutic Exercises Modalities Electric Stimulation,Hot Packs Next Visit Focus/Plan Next Note Type Treatment Note Next Visit Plan Cont 2x/wk, soon Sister might having surgery, may need to reduce to 1x/wk as pt might be in [place]. ?Still sensitive to manual therapy. Recheck response to tandem bal walking progression in PT only finger glide wall for gait bal progression. Progress as appropriate core stabilization and retrain for proper squat mechanics. Strengthen LE's to improve balance (in neutral spine trial hip and HS curls standing AROM> leg wt or resisted side stepping) and safety with gait. POC: Ther Ex: Hip stretches, when pain reduced. Pt education: Posture & Continue body mechanics ( washing dishes and vacuuming addressed) ADLs. REcheck gentle Hitesh Ext. Caution due to Grade 1 anterolisthesis of L3 on L4 ( retrolisthesis at L1 on L2, L2 on L3 and L5 on S1). Assess need for Gentle sacral balancing (caution: osteoporosis & anteriolisthesis) for LBP reduction. Might try MH/IFES of L/S to reduce neuro symptoms in R LE. .
--- NOTE | 2025-01-31 15:58 | PT.OTN ---
Current Diagnoses Other chronic pain (01/31/25) Spondylosis without myelopathy or radiculopathy, lumbar region (01/31/25) Radiculopathy, lumbar region (01/31/25) Low back pain, unspecified (01/31/25) Physical Therapy Treatment Note PT-OP-A Visit Information Start: 12/03/24 18:09 Freq: Status: Active Protocol: Document 01/31/25 13:47 LRN (Rec: 01/31/25 14:36 LRN [id number]) Out-Patient Physical Therapy Visit Information Visit Information Visit Type Treatment Note Visit Start Time 13:47 Visit Stop Time 14:31 Visit Number 16 (06/11 with PN) Number of REVIEW ENGINEER Visits 1 Evaluation Information Evaluation Date 12/05/24 Precautions Precautions Per intake form: Osteoporosis , SOB from pulmonary fibrosis, twisted bowel, breast implant . PT-OP-B Current Condition Start: 12/03/24 18:09 Freq: Status: Active Protocol: Document 12/05/24 13:00 LRN (Rec: 12/05/24 13:56 LRN [id number]) Current Condition History of Current Condition Onset Date 2 yrs ago Current Complaints R LE is now dull, annoying, achy pain, with worst part behind the knee. History of Current Condition Insidious onset of tingling in RLE and was given Vit D that didn't help. 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 Her PCP (Dr He) referred her to have an EMG and states her problem was not determined to be neurological, but coming from the spine. Early Jul [address] Hampton and had a cortisone injection in spine ~August 2024, with no change in symptoms. Just this morning she had a 2nd accupuncture appt by Dr. Castanon, and no long has the needles/pins feeling so he is now being referred to physical therapy. The R LE symptom is now a dull annoying achy pain , worst pain is behind the knee. She is able to sleep on her back or L side. R sidelie is uncomfortable due to R hip pain. Walking, pt feels like a rubber band is under the R foot all the way to the hip. When stepping feels like something is lifting it that she isn't controlling and she just follows her leg. She states her spouse says her R leg swings around (circumducts) walking. Prior Treatments and Tests Pt reports prior Accupuncture appts x 2, by Dr. Castanon. MRI 07/02/24 of L/S: mild levoscoliosis centered at L2, mild retrolisthesis of L1 on L2 and L2 on L3, Grade 1 anterolisthesis of L3 on L4, mild of L5 on S1. Multilevel disc bulge and desiccation and multilevel central canal stenosis in the lumbar spine. Active small Schmorl's node at inferior endplate of T11. Future Testing and Treatments Planned Next Dr. Castanon accupuncture appt is 12/16/24. Treatment Goals Patient/Caregiver Goals Pt goals: - Eliminate R LE pain to go for walk w/o having akward leg spasms. - Remove the clumsiness/ swerving while walking and ache in R LE. - agreeable to a HEP. Personal Factors Other Personal Factors That May Effect SOB from Pulmonary Fibrosis, Therapy/Recovery Thyroid disorder, Used to walk daily, States few months ago in pulmonary rehab she exercised 90 minutes including walking 3x/wk (12 wks). PT-OP-C Subjective Start: 12/03/24 18:09 Freq: Status: Active Protocol: Document 01/31/25 13:47 LRN (Rec: 01/31/25 14:36 LRN [id number]) OP-PT Subjective Patient Comments Patient Comments Neuropathy problem 3-4x/wk early evening (6:30-7p), legs become cold to burning heat and itch and it goes away within an hour. States she is feeling more stable with gait . Patient Reported Progress Same PT-OP-E Functional Tests Start: 12/03/24 18:09 Freq: Status: Active Protocol: Document 01/17/25 14:44 LRN (Rec: 01/17/25 16:21 LRN [id number]) Functional Tests 2 Minute Walk Test Distance 358 ft, 10 in Device Used None Comments ~2-3x excessive sway during gait PT-OP-G Mobility & Gait Start: 12/03/24 18:09 Freq: Status: Active Protocol: Document 12/05/24 13:00 LRN (Rec: 12/05/24 13:56 LRN [id number]) OP Gait Assessment Gait Gait Assistance Required: Independent Able to Maintain Weight Bearing Status Yes During Gait Assistive Devices Assistive Device None Gait Deviations General Gait Pattern Decreased Stride Length, Decreased Feet Clearance Factors Limiting Gait Function Factors Limiting Gait Function Incoordination,Pain Comments Gait Comments Occasional swinging out of R LE during swing through phase. PT-OP-H Neuro Start: 12/03/24 18:09 Freq: Status: Active Protocol: Document 12/05/24 13:00 LRN (Rec: 12/05/24 13:56 LR [id number]) Sensation Evaluation Gross Sensation Gross Sensation WNL Deep Tendon Reflex & Clonus Assessment Deep Tendon Reflex Left Achilles Deep Tendon Reflex 2+ Normal Right Achilles Deep Tendon Reflex 3+ Normal But Brisk Bilateral Patellar Deep Tendon Reflex 3+ Normal But Brisk PT-OP-J Posture/Palpation/Skin Start: 12/03/24 18:09 Freq: Status: Active Protocol: Document 12/05/24 13:00 LRN (Rec: 12/05/24 13:56 LR [id number]) Posture Evaluation Position Standing Head/C-Spine Posture Side Bent Left,Forward Head L-Spine Posture Shifted Left Shoulder Posture (R) Elevated Arm Posture (L) Internally Rotated,(R) Internally Rotated Pelvis Posture (R) Iliac Crest Superior,(L) PSIS Posterior Hip Posture (L) Externally Rotated Ankle/Foot Posture (L) Calcaneal Inversion Palpation Assessment Location R LE Palpation Location Normal sensation without pain complaints Low back Palpation Location R SIJ, gluteals Palpation Findings Tenderness PT-OP-K Range of Motion Start: 12/03/24 18:09 Freq: Status: Active Protocol: Document 12/26/24 13:52 LRN (Rec: 12/26/24 14:35 LRN [id number]) Lumbar Spine Range of Motion Lumbar Spine Active Degrees Testing Position Standing Flexion 110 Extension 5 Rotation Left 30 Rotation Right 10 Lateral Flexion Left 10 Lateral Flexion Right 7 PT-OP-L Special Tests Start: 12/03/24 18:09 Freq: Status: Active Protocol: Document 12/05/24 13:00 LRN (Rec: 12/05/24 13:56 LRN [id number]) Special Tests Lumbar Spine Special Tests Manual Traction Test Results - Comments No change with R LE pain Straight Leg Raise Test Results - Comments Mikael is 90 deg's w/o LE pain onset Slump Test Results - bilaterally Comments No change in sensation or pain Vertical Spine Loading Test Results - Comments No change in symptoms PT-OP-M Strength Start: 12/03/24 18:09 Freq: Status: Active Protocol: Document 12/13/24 13:46 LRN (Rec: 12/13/24 14:32 LRN [id number]) Toe Strength Toe Manual Muscle Testing Left Great Toe Flexion 4+ Good+ Comments Pt is not able to perform MTP, PIP or DIP flexion Right Great Toe Flexion 5 Normal Comments Pt is not able to perform MTP, PIP or DIP flexion PT-OP-Q Treatments Start: 12/03/24 18:09 Freq: Status: Active Protocol: Document 01/31/25 13:47 LRN (Rec: 01/31/25 14:36 LRN [id number]) Therapeutic Exercises Supine Exercises NS/Heel Slides Side bilateral Equipment Used Hand behind back Reps/Minutes 10x 3 Comments Much training for NS positioning NS training Supine Exercise Name NS training Reps/Minutes hooklying 10 SH x10 Comments 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 Pushing & Pulling w/ instructions to push vs pull. Carrying/lifting wgt on both sides (groceries or suitcases) . Leaning over to machine operator picker objects off ground, 1/2 way to ground and overhead. Squat mechanics Name Sitting and Mini squat then STS mechanics training: yard stick then nothing Reps/Minutes 5' Comments Cued for spinal alignment elongation sitting: TS& LS use pillow support needed, TA draw in for LS support NS, chin tuck CS retraction neutral as performed on wall, carryover hip hinge STS with provided HOs household tasks Name Moving clothes in/out of washer/dryer, and picking up dog. Reps/Minutes 8' Transfer training Name Stand<>supine Reps/Minutes 4' Self-Care/Home Management Treatment Education Other Education Issued HO's as taught with therapeutic activities: PT-OP-T Assessment and Plan Start: 12/03/24 18:09 Freq: Status: Active Protocol: Document 01/31/25 13:47 LRN (Rec: 01/31/25 14:36 LRN [id number]) Physical Therapy Assessment Goals Three Impairment Pain and clumsiness of R LE with walking Short Term Goal (STG) Improve R LE strength with pt able to walk with reported less clumsiness. 12/16/2024 Patient reports she feels slighlty less clumsy with ambulation, feels like right leg is moving straighter . 12/23/2024 Pt reports awakening w/ increased R foot numbness which improves throughout treatment session today. It's waking back up. 12/30/24: progression: trialed in PT tandem walking in hallway finger glide> PRN cues for tall posture, TA and slower pacing feel 2 ft of other, improved with reps less UE support. 01/03/25: Pt reporting walking a straighter path with spouse and her not feeling like she has to hang onto him for safety as much as when she first started therapy. 01/11/25: first think in am more clumsi, later day improves, when she walks faster outside is better. IF takes longer walk slight [place] neighborhood 4-5 blocks and back, notices little viering but no LOB she does get of breath before tires, so sits on bench at [employer] rest. 01/31/25: Pt reporting more stable walking. STG Duration 01/20/25 progressing 01/31/25 Retail Personal Banker Goal (LTG) Modify walking gait and time as needed to eliminate R LE pain walking. 01/03/25: R leg pain behind the knee and down lateral side of leg to ankle (foot numb all the time) at nighttime only. No pain with walking. After doing stairs, her R calf area was painful and she was very SOB. 01/16/25: no pain just dull ache in R lateral calf, still gets post ex, gets better but not fully goes away with walks or seated resisted abd LTG Duration 03/03/25 revisited more ache (not pain since 01/06/25) Two Impairment Decreased gait stability Short Term Goal (STG) Improve balance to decrease swerving with gait. 01/03/25: Pt able to walk without swerving 10' x 4. Swerving after ~ 60-80'. STG Duration 01/20/25 progressed 01/03/25 Retail Personal Banker Goal (LTG) Improve gait stability to remove swerving and akward leg spasms while walking. (TUG 20 secs on 12/26/24) 01/03/25: Pt states spouse feels she is not swerving as much on her walk. 01/17/25: 2 minute walk test: 358'10 LTG Duration 03/03/25 progressing One Impairment Pt lacks appropriate self are home exercise program (HEP) Short Term Goal (STG) Pt will be able to participate in a self care corner balance HEP. 12/16/2024 Patient reports she is performing HEP every day as reviewed by PT previous sessions. 12/20/24: Initiated corner balance SLS ex. 12/26/24: Initiated corner tandem stance if spouse can guard pt for safety. 12/30/24: continued corner bal NBOS, tandem, SLS, able to compelete HTs and EC NBOS slight sway self recovery. 01/16/25: worked on fwd HTs and back stepping hallway in PT only, slight sways but no LOB, cued DF heel toe and softer stepping. STG Duration 01/20/25 progressed 01/16/25 Skilled Nursing Goal (LTG) Pt will be independent on a self care HEP to improve core & R LE strength. 12/08/24: Modified ex to increase to 6 reps and placed trunk rot on hold. 12/20/24: HEP: LB program: Neutral spine (Pelvic Tilt, TA , Mutifidi), Heel slides, Heel slides & SLR. Issued Handouts: Body mechanics Basics and for Daily activities, and for log roll transfer. 01/16/25: hand written on personal [email or web address] HO: resisted side stepping and reviwe past resisted seated ABD. 01/19/25: added [place] LE ex: LAQ, ABD, HC curl, HR, Mini squat, Semitandem stance. 01/31/25: Handouts for Body mechanics for ADLs and Proper posture: The [place] to Safe Movement for all positions. LTG Duration 03/03/25 progressed 01/31/25 Assessment Summary Assessment 84 yo female w/Lumbar disc herniation, chronic R LE sciatic pain (including R LBP first in AM), multi-level disc bulges and central canal stenosis in L/S; areas of both retro- and reuben-listhesis with lumbar shift L. Today, she demonstrated poor core stabilization and poor awareness of posture and body mechanics that improved by end of treatment, although pt could benefit from further hip hinging training for functional activities ( unloading washer/dryer and making beds). Pt needs to have activity diary to determine what home activities she is doing that may be aggrevating her DDD and causing 3x/wk LE neuropathy at end of day. Physical Therapy Plan Frequency and Duration Frequency of Treatment 2x/Week Duration of treatment (weeks) 12 Plan of Care Start Date 01/03/25 Plan of Care End Date 03/03/25 Next Visit Focus/Plan Next Note Type Treatment Note Next Visit Plan PN in 2 visits if pt makes progress. Cont 2x/wk, soon Sister might having surgery, may need to reduce to 1x/wk as pt might be in [place]. Check if pt sensitive to manual therapy to LE's. Further training for hip hinging & squatting during functional activities and review pt's diary of daily activities. Recheck response to tandem bal walking progression in PT only finger glide wall for gait bal progression. Progress core stabilization. Strengthen LE's to improve balance (in neutral spine trial hip and HS curls standing AROM> leg wt or resisted side stepping) and safety with gait. POC: Ther Ex: Hip stretches, when pain reduced. Pt education: Posture & Continue body mechanics ( washing dishes and vacuuming addressed) ADLs. REcheck gentle Hitesh Ext. Caution due to Grade 1 anterolisthesis of L3 on L4 ( retrolisthesis at L1 on L2, L2 on L3 and L5 on S1). Assess need for Gentle sacral balancing (caution: osteoporosis & anteriolisthesis) for LBP reduction. Might try MH/IFES of L/S to reduce neuro symptoms in R LE. .
--- NOTE | 2025-02-07 17:53 | PT.OTN ---
Current Diagnoses Other chronic pain (02/07/25) Spondylosis without myelopathy or radiculopathy, lumbar region (02/07/25) Radiculopathy, lumbar region (02/07/25) Low back pain, unspecified (02/07/25) Physical Therapy Treatment Note PT-OP-A Visit Information Start: 12/03/24 18:09 Freq: Status: Active Protocol: Document 02/07/25 13:00 LRN (Rec: 02/07/25 13:52 LRN Laptop) Out-Patient Physical Therapy Visit Information Visit Information Visit Type Progress Note Visit Start Time 13:00 Visit Stop Time 13:50 Visit Number 17 (PN) Evaluation Information Evaluation Date 12/05/24 Precautions Precautions Per intake form: Osteoporosis , SOB from pulmonary fibrosis, twisted bowel, breast implant . PT-OP-B Current Condition Start: 12/03/24 18:09 Freq: Status: Active Protocol: Document 12/05/24 13:00 LRN (Rec: 12/05/24 13:56 LRN [id number]) Current Condition History of Current Condition Onset Date 2 yrs ago Current Complaints R LE is now dull, annoying, achy pain, with worst part behind the knee. History of Current Condition Insidious onset of tingling in RLE and was given Vit D that didn't help. 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 Her PCP (Dr He) referred her to have an EMG and states her problem was not determined to be neurological, but coming from the spine. Early Jul [address] Hampton and had a cortisone injection in spine ~August 2024, with no change in symptoms. Just this morning she had a 2nd accupuncture appt by Dr. Castanon, and no long has the needles/pins feeling so he is now being referred to physical therapy. The R LE symptom is now a dull annoying achy pain , worst pain is behind the knee. She is able to sleep on her back or L side. R sidelie is uncomfortable due to R hip pain. Walking, pt feels like a rubber band is under the R foot all the way to the hip. When stepping feels like something is lifting it that she isn't controlling and she just follows her leg. She states her spouse says her R leg swings around (circumducts) walking. Prior Treatments and Tests Pt reports prior Accupuncture appts x 2, by Dr. Castanon. MRI 07/02/24 of L/S: mild levoscoliosis centered at L2, mild retrolisthesis of L1 on L2 and L2 on L3, Grade 1 anterolisthesis of L3 on L4, mild of L5 on S1. Multilevel disc bulge and desiccation and multilevel central canal stenosis in the lumbar spine. Active small Schmorl's node at inferior endplate of T11. Future Testing and Treatments Planned Next Dr. Castanon accupuncture appt is 12/16/24. Treatment Goals Patient/Caregiver Goals Pt goals: - Eliminate R LE pain to go for walk w/o having akward leg spasms. - Remove the clumsiness/ swerving while walking and ache in R LE. - agreeable to a HEP. Personal Factors Other Personal Factors That May Effect SOB from Pulmonary Fibrosis, Therapy/Recovery Thyroid disorder, Used to walk daily, States few months ago in pulmonary rehab she exercised 90 minutes including walking 3x/wk (12 wks). PT-OP-C Subjective Start: 12/03/24 18:09 Freq: Status: Active Protocol: Document 02/07/25 13:00 LRN (Rec: 02/07/25 13:52 LRN Laptop) OP-PT Subjective Patient Comments Patient Comments States she only had numbness in her LE's x 1 since last visit. Didn't make the beds. PT-OP-E Functional Tests Start: 12/03/24 18:09 Freq: Status: Active Protocol: Document 01/17/25 14:44 LRN (Rec: 01/17/25 16:21 LRN [id number]) Functional Tests 2 Minute Walk Test Distance 358 ft, 10 in Device Used None Comments ~2-3x excessive sway during gait PT-OP-G Mobility & Gait Start: 12/03/24 18:09 Freq: Status: Active Protocol: Document 12/05/24 13:00 LRN (Rec: 12/05/24 13:56 LRN [id number]) OP Gait Assessment Gait Gait Assistance Required: Independent Able to Maintain Weight Bearing Status Yes During Gait Assistive Devices Assistive Device None Gait Deviations General Gait Pattern Decreased Stride Length, Decreased Feet Clearance Factors Limiting Gait Function Factors Limiting Gait Function Incoordination,Pain Comments Gait Comments Occasional swinging out of R LE during swing through phase. PT-OP-H Neuro Start: 12/03/24 18:09 Freq: Status: Active Protocol: Document 12/05/24 13:00 LRN (Rec: 12/05/24 13:56 LRN [id number]) Sensation Evaluation Gross Sensation Gross Sensation WNL Deep Tendon Reflex & Clonus Assessment Deep Tendon Reflex Left Achilles Deep Tendon Reflex 2+ Normal Right Achilles Deep Tendon Reflex 3+ Normal But Brisk Bilateral Patellar Deep Tendon Reflex 3+ Normal But Brisk PT-OP-J Posture/Palpation/Skin Start: 12/03/24 18:09 Freq: Status: Active Protocol: Document 12/05/24 13:00 LRN (Rec: 12/05/24 13:56 LRN [id number]) Posture Evaluation Position Standing Head/C-Spine Posture Side Bent Left,Forward Head L-Spine Posture Shifted Left Shoulder Posture (R) Elevated Arm Posture (L) Internally Rotated,(R) Internally Rotated Pelvis Posture (R) Iliac Crest Superior,(L) PSIS Posterior Hip Posture (L) Externally Rotated Ankle/Foot Posture (L) Calcaneal Inversion Palpation Assessment Location R LE Palpation Location Normal sensation without pain complaints Low back Palpation Location R SIJ, gluteals Palpation Findings Tenderness PT-OP-K Range of Motion Start: 12/03/24 18:09 Freq: Status: Active Protocol: Document 12/26/24 13:52 LRN (Rec: 12/26/24 14:35 LRN [id number]) Lumbar Spine Range of Motion Lumbar Spine Active Degrees Testing Position Standing Flexion 110 Extension 5 Rotation Left 30 Rotation Right 10 Lateral Flexion Left 10 Lateral Flexion Right 7 PT-OP-L Special Tests Start: 12/03/24 18:09 Freq: Status: Active Protocol: Document 12/05/24 13:00 LRN (Rec: 12/05/24 13:56 LRN [id number]) Special Tests Lumbar Spine Special Tests Manual Traction Test Results - Comments No change with R LE pain Straight Leg Raise Test Results - Comments Mikael is 90 deg's w/o LE pain onset Slump Test Results - bilaterally Comments No change in sensation or pain Vertical Spine Loading Test Results - Comments No change in symptoms PT-OP-M Strength Start: 12/03/24 18:09 Freq: Status: Active Protocol: Document 12/13/24 13:46 LRN (Rec: 12/13/24 14:32 LRN [id number]) Toe Strength Toe Manual Muscle Testing Left Great Toe Flexion 4+ Good+ Comments Pt is not able to perform MTP, PIP or DIP flexion Right Great Toe Flexion 5 Normal Comments Pt is not able to perform MTP, PIP or DIP flexion PT-OP-Q Treatments Start: 12/03/24 18:09 Freq: Status: Active Protocol: Document 02/07/25 13:00 LRN (Rec: 02/07/25 13:52 LRN Laptop) Therapeutic Exercises Supine Exercises ITB stretch Supine Exercise Name Assess for adding NS/Heel Slides Side bilateral Equipment Used Hand behind back Reps/Minutes 10x 3 Comments Much training for NS positioning Alt arm leg lifts Side bilateral Equipment Used Hand behind back Reps/Minutes 10x 3 Comments Much training for NS positioning Hamstring stretch Supine Exercise Name Hamstring/LE neural glide & peroneus longus/LE neural glide Side bilateral Reps/Minutes 8' Therapeutic Activity Therapeutic Activity Car sitting positioning Reps/Minutes 4' Comments Positioning training for: regular sitting and reclined positioning w/foot support for long car ride positioning. Transfer training Name Stand<>supine Reps/Minutes 4' Manual Therapy Treatment Consent Patient gave verbal consent for manual Yes treatment Soft Tissue Mobilization Low back Body Location Soft tissue mob for lumbar traction at lateral trunk and posterior LB Mobilization Type Sustained Pressure Intensity/Depth Superficial Body Position L Sidelying Comments Folded hand towel under curve of lateral trunk. Lateral trunk mob: Decreased lateral upper thigh discomfort with pressure. Posterior trunk mob at sacrum: onset of tingling/numbness in lateral lower leg. L lateral leg Body Location .... R lateral leg Body Location STM at anterior tib Mobilization Type Strumming Intensity/Depth Superficial Body Position L Sidelye Comments Folded hand towel under curve of lateral trunk. Discomfort at mid lower leg in region of anterior tibialis not improved with very light STM. Self-Care/Home Management Treatment Education Other Education Pt education in spinal alignment and importance of maintaining neutral spine. PT-OP-T Assessment and Plan Start: 12/03/24 18:09 Freq: Status: Active Protocol: Document 02/07/25 13:00 LRN (Rec: 02/07/25 13:52 LRN Laptop) Physical Therapy Assessment Rehab Potential Rehabilitation Potential Good Evaluation Complexity Number of Personal Factors/Comorbidities 1-2 Number of Body Systems Impaired 4 or More Clinical Presentation at Evaluation Evolving Impairments Impairments Activity Tolerance,Balance, Gait,Pain,ROM,Sensation,Soft Tissue Mobility,Strength Goals Three Impairment Pain and clumsiness of R LE with walking Short Term Goal (STG) Improve R LE strength with pt able to walk with reported less clumsiness. 12/16/2024 Patient reports she feels slighlty less clumsy with ambulation, feels like right leg is moving straighter . 12/23/2024 Pt reports awakening w/ increased R foot numbness which improves throughout treatment session today. It's waking back up. 12/30/24: progression: trialed in PT tandem walking in hallway finger glide> PRN cues for tall posture, TA and slower pacing feel 2 ft of other, improved with reps less UE support. 01/03/25: Pt reporting walking a straighter path with spouse and her not feeling like she has to hang onto him for safety as much as when she first started therapy. 01/11/25: first think in am more clumsi, later day improves, when she walks faster outside is better. IF takes longer walk [place] neighborhood 4-5 blocks and back, notices little viering but no LOB she does get of breath before tires, so sits on bench at [employer] rest. 01/31/25: Pt reporting more stable walking. STG Duration 02/28/25 progressing Hat And Cap Sewer Goal (LTG) Modify walking gait and time as needed to eliminate R LE pain walking. 01/03/25: R leg pain behind the knee and down lateral side of leg to ankle (foot numb all the time) at nighttime only. No pain with walking. After doing stairs, her R calf area was painful and she was very SOB. 01/16/25: no pain just dull ache in R lateral calf, still gets post ex, gets better but not fully goes away with walks or seated resisted abd LTG Duration 03/16/25 revisited more ache (not pain since 01/06/25) Two Impairment Decreased gait stability Short Term Goal (STG) Improve balance to decrease swerving with gait. 01/03/25: Pt able to walk without swerving 10' x 4. Swerving after ~ 60-80'. STG Duration 02/28/25 progressed 01/03/25 Usp Goal (LTG) Improve gait stability to remove swerving and akward leg spasms while walking. (TUG 20 secs on 12/26/24) 01/03/25: Pt states spouse feels she is not swerving as much on her walk. 01/17/25: 2 minute walk test: 358'10 LTG Duration 03/16/25 progressing One Impairment Pt lacks appropriate self are home exercise program (HEP) Short Term Goal (STG) Pt will be able to participate in a self care corner balance HEP. 12/16/2024 Patient reports she is performing HEP every day as reviewed by PT previous sessions. 12/20/24: Initiated corner balance SLS ex. 12/26/24: Initiated corner tandem stance if spouse can guard pt for safety. 12/30/24: continued corner bal NBOS, tandem, SLS, able to compelete HTs and EC NBOS slight sway self recovery. 01/16/25: worked on fwd HTs and back stepping hallway in PT only, slight sways but no LOB, cued DF heel toe and softer stepping. STG Duration 02/28/25 progressed 01/16/25 Hat And Cap Sewer Goal (LTG) Pt will be independent on a self care HEP to improve core & R LE strength. 12/08/24: Modified ex to increase to 6 reps and placed trunk rot on hold. 12/20/24: HEP: LB program: Neutral spine (Pelvic Tilt, TA , Mutifidi), Heel slides, Heel slides & SLR. Issued Handouts: Body mechanics Basics and for Daily activities, and for log roll transfer. 01/16/25: hand written on personal [email or web address] personal HO: resisted side stepping and reviwe past resisted seated ABD. 01/19/25: added [place] LE ex: LAQ, ABD, HC curl, HR, Mini squat, Semitandem stance. 01/31/25: Handouts for Body mechanics for ADLs and Proper posture: The [place] to Safe Movement for all positions. LTG Duration 03/16/25 progressed 01/31/25 Assessment Summary Assessment 84 yo female attending rehabilitation for R LE neuropathy, w/Lumbar disc herniation, chronic R LE sciatic pain (including R LBP first in AM), multi-level disc bulges and central canal stenosis in L/S; areas of both retro- and rebuen-listhesis with lumbar shift L. Today, the pt notes for the first time she had neuropathy in the evening only 1x since last session (past 7 days). She appears to have been trying to be more compliant with her body mechanics with ADLs at home and doing self STM of her R lateral thigh at nighttime to reduce symptoms of nerve pain (no c/o pain during the day). She is still quite sensitive in her R lateral thigh and lower leg to pressure/palpation. This is the first time she has had improvement in this area; therefore I recommend the pt continue skilled physical therapy for further core stabilization, LE neural glides, STM, and LE strengthening to help resolve or decrease her nighttime LE pain through behavior changes (posturing and body mechanics) , and to improve her balance and safety with gait, as her R LE nighttime pain and neuropathy is reduced. Pt BETTINA not completed, will do at next session if not completed. Physical Therapy Plan Frequency and Duration Frequency of Treatment 2x/Week Duration of treatment (weeks) 5 Plan of Care Start Date 02/07/25 Plan of Care End Date 02/28/25 Therapeutic Interventions Therapeutic Interventions Balance Training,Gait Training ,Home Exercise Program,Manual Therapy,Neuromuscular Re- education,Self-Care/Home Management,Soft Tissue Mobilization,Therapeutic Activities,Therapeutic Exercises Modalities Cold Pack/Ice Massage,Hot Packs Next Visit Focus/Plan Next Note Type Treatment Note Next Visit Plan Pt to complete BETTINA and score. Cont 2x/wk, soon Sister might having surgery, may need to reduce to 1x/wk as pt might be in [place]. Next: Assess R LE neuropathy outcome following last treatment session. Assess and modify pt's nighttime sleeping position to minimize her nighttime R LE pain. Progress Core stab & LE strengthening (in neutral spine) to improve balance and safety with gait, but avoid SL activities that might increase her R LE nerve symptoms (numbness/tingling). Avoid activities that increases pt sensitive to LE's , try hot/cold treatment during Core stab exercises. Further training for hip hinging & squatting during functional activities, but avoid repetitive sciatic nerve tensioning into nerve symptoms. Recheck response to tandem bal walking progression in PT only finger glide wall for gait bal progression. POC: L/S dyfunction and R Sciatic pain rehab. Ther Ex: Hip stretches, when pain reduced. Caution due to Grade 1 anterolisthesis of L3 on L4 ( retrolisthesis at L1 on L2, L2 on L3 and L5 on S1). Might try MH/IFES of L/S to reduce neuro symptoms in R LE.
--- NOTE | 2025-02-07 17:58 | PT.OPPN ---
Current Diagnoses Other chronic pain (02/07/25) Spondylosis without myelopathy or radiculopathy, lumbar region (02/07/25) Radiculopathy, lumbar region (02/07/25) Low back pain, unspecified (02/07/25) Physical Therapy Progress Note PT-OP-A Visit Information Start: 12/03/24 18:09 Freq: Status: Active Protocol: Document 02/07/25 13:00 LRN (Rec: 02/07/25 13:52 LRN Laptop) Out-Patient Physical Therapy Visit Information Visit Information Visit Type Progress Note Visit Start Time 13:00 Visit Stop Time 13:50 Visit Number 17 (PN) Evaluation Information Evaluation Date 12/05/24 Precautions Precautions Per intake form: Osteoporosis , SOB from pulmonary fibrosis, twisted bowel, breast implant . PT-OP-B Current Condition Start: 12/03/24 18:09 Freq: Status: Active Protocol: Document 12/05/24 13:00 LRN (Rec: 12/05/24 13:56 LRN [id number]) Current Condition History of Current Condition Onset Date 2 yrs ago Current Complaints R LE is now dull, annoying, achy pain, with worst part behind the knee. History of Current Condition Insidious onset of tingling in RLE and was given Vit D that didn't help. 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 Her PCP (Dr He) referred her to have an EMG and states her problem was not determined to be neurological, but coming from the spine. Early Jul [address] Hampton and had a cortisone injection in spine ~August 2024, with no change in symptoms. Just this morning she had a 2nd accupuncture appt by Dr. Castanon, and no long has the needles/pins feeling so he is now being referred to physical therapy. The R LE symptom is now a dull annoying achy pain , worst pain is behind the knee. She is able to sleep on her back or L side. R sidelie is uncomfortable due to R hip pain. Walking, pt feels like a rubber band is under the R foot all the way to the hip. When stepping feels like something is lifting it that she isn't controlling and she just follows her leg. She states her spouse says her R leg swings around (circumducts) walking. Prior Treatments and Tests Pt reports prior Accupuncture appts x 2, by Dr. Castanon. MRI 07/02/24 of L/S: mild levoscoliosis centered at L2, mild retrolisthesis of L1 on L2 and L2 on L3, Grade 1 anterolisthesis of L3 on L4, mild of L5 on S1. Multilevel disc bulge and desiccation and multilevel central canal stenosis in the lumbar spine. Active small Schmorl's node at inferior endplate of T11. Future Testing and Treatments Planned Next Dr. Castanon accupuncture appt is 12/16/24. Treatment Goals Patient/Caregiver Goals Pt goals: - Eliminate R LE pain to go for walk w/o having akward leg spasms. - Remove the clumsiness/ swerving while walking and ache in R LE. - agreeable to a HEP. Personal Factors Other Personal Factors That May Effect SOB from Pulmonary Fibrosis, Therapy/Recovery Thyroid disorder, Used to walk daily, States few months ago in pulmonary rehab she exercised 90 minutes including walking 3x/wk (12 wks). PT-OP-C Subjective Start: 12/03/24 18:09 Freq: Status: Active Protocol: Document 02/07/25 13:00 LRN (Rec: 02/07/25 13:52 LRN Laptop) OP-PT Subjective Patient Comments Patient Comments States she only had numbness in her LE's x 1 since last visit. Didn't make the beds. PT-OP-E Functional Tests Start: 12/03/24 18:09 Freq: Status: Active Protocol: Document 01/17/25 14:44 LRN (Rec: 01/17/25 16:21 LRN [id number]) Functional Tests 2 Minute Walk Test Distance 358 ft, 10 in Device Used None Comments ~2-3x excessive sway during gait PT-OP-G Mobility & Gait Start: 12/03/24 18:09 Freq: Status: Active Protocol: Document 12/05/24 13:00 LRN (Rec: 12/05/24 13:56 LRN [id number]) OP Gait Assessment Gait Gait Assistance Required: Independent Able to Maintain Weight Bearing Status Yes During Gait Assistive Devices Assistive Device None Gait Deviations General Gait Pattern Decreased Stride Length, Decreased Feet Clearance Factors Limiting Gait Function Factors Limiting Gait Function Incoordination,Pain Comments Gait Comments Occasional swinging out of R LE during swing through phase. PT-OP-H Neuro Start: 12/03/24 18:09 Freq: Status: Active Protocol: Document 12/05/24 13:00 LRN (Rec: 12/05/24 13:56 LRN [id number]) Sensation Evaluation Gross Sensation Gross Sensation WNL Deep Tendon Reflex & Clonus Assessment Deep Tendon Reflex Left Achilles Deep Tendon Reflex 2+ Normal Right Achilles Deep Tendon Reflex 3+ Normal But Brisk Bilateral Patellar Deep Tendon Reflex 3+ Normal But Brisk PT-OP-J Posture/Palpation/Skin Start: 12/03/24 18:09 Freq: Status: Active Protocol: Document 12/05/24 13:00 LRN (Rec: 12/05/24 13:56 LRN [id number]) Posture Evaluation Position Standing Head/C-Spine Posture Side Bent Left,Forward Head L-Spine Posture Shifted Left Shoulder Posture (R) Elevated Arm Posture (L) Internally Rotated,(R) Internally Rotated Pelvis Posture (R) Iliac Crest Superior,(L) PSIS Posterior Hip Posture (L) Externally Rotated Ankle/Foot Posture (L) Calcaneal Inversion Palpation Assessment Location R LE Palpation Location Normal sensation without pain complaints Low back Palpation Location R SIJ, gluteals Palpation Findings Tenderness PT-OP-K Range of Motion Start: 12/03/24 18:09 Freq: Status: Active Protocol: Document 12/26/24 13:52 LRN (Rec: 12/26/24 14:35 LRN [id number]) Lumbar Spine Range of Motion Lumbar Spine Active Degrees Testing Position Standing Flexion 110 Extension 5 Rotation Left 30 Rotation Right 10 Lateral Flexion Left 10 Lateral Flexion Right 7 PT-OP-L Special Tests Start: 12/03/24 18:09 Freq: Status: Active Protocol: Document 12/05/24 13:00 LRN (Rec: 12/05/24 13:56 LRN [id number]) Special Tests Lumbar Spine Special Tests Manual Traction Test Results - Comments No change with R LE pain Straight Leg Raise Test Results - Comments Mikael is 90 deg's w/o LE pain onset Slump Test Results - bilaterally Comments No change in sensation or pain Vertical Spine Loading Test Results - Comments No change in symptoms PT-OP-M Strength Start: 12/03/24 18:09 Freq: Status: Active Protocol: Document 12/13/24 13:46 LRN (Rec: 12/13/24 14:32 LRN [id number]) Toe Strength Toe Manual Muscle Testing Left Great Toe Flexion 4+ Good+ Comments Pt is not able to perform MTP, PIP or DIP flexion Right Great Toe Flexion 5 Normal Comments Pt is not able to perform MTP, PIP or DIP flexion PT-OP-T Assessment and Plan Start: 12/03/24 18:09 Freq: Status: Active Protocol: Document 02/07/25 13:00 LRN (Rec: 02/07/25 13:52 LRN Laptop) Physical Therapy Assessment Rehab Potential Rehabilitation Potential Good Evaluation Complexity Number of Personal Factors/Comorbidities 1-2 Number of Body Systems Impaired 4 or More Clinical Presentation at Evaluation Evolving Impairments Impairments Activity Tolerance,Balance, Gait,Pain,ROM,Sensation,Soft Tissue Mobility,Strength Goals Three Impairment Pain and clumsiness of R LE with walking Short Term Goal (STG) Improve R LE strength with pt able to walk with reported less clumsiness. 12/16/2024 Patient reports she feels slighlty less clumsy with ambulation, feels like right leg is moving straighter . 12/23/2024 Pt reports awakening w/ increased R foot numbness which improves throughout treatment session today. It's waking back up. 12/30/24: progression: trialed in PT tandem walking in hallway finger glide> PRN cues for tall posture, TA and slower pacing feel 2 ft of other, improved with reps less UE support. 01/03/25: Pt reporting walking a straighter path with spouse and her not feeling like she has to hang onto him for safety as much as when she first started therapy. 01/11/25: first think in am more clumsi, later day improves, when she walks faster outside is better. IF takes longer walk [place] neighborhood 4-5 blocks and back, notices little viering but no LOB she does get of breath before tires, so sits on bench at [employer] rest. 01/31/25: Pt reporting more stable walking. STG Duration 02/28/25 progressing Care Home Goal (LTG) Modify walking gait and time as needed to eliminate R LE pain walking. 01/03/25: R leg pain behind the knee and down lateral side of leg to ankle (foot numb all the time) at nighttime only. No pain with walking. After doing stairs, her R calf area was painful and she was very SOB. 01/16/25: no pain just dull ache in R lateral calf, still gets post ex, gets better but not fully goes away with walks or seated resisted abd LTG Duration 03/16/25 revisited more ache (not pain since 01/06/25) Two Impairment Decreased gait stability Short Term Goal (STG) Improve balance to decrease swerving with gait. 01/03/25: Pt able to walk without swerving 10' x 4. Swerving after ~ 60-80'. STG Duration 02/28/25 progressed 01/03/25 Care Home Goal (LTG) Improve gait stability to remove swerving and akward leg spasms while walking. (TUG 20 secs on 12/26/24) 01/03/25: Pt states spouse feels she is not swerving as much on her walk. 01/17/25: 2 minute walk test: 358'10 LTG Duration 03/16/25 progressing One Impairment Pt lacks appropriate self are home exercise program (HEP) Short Term Goal (STG) Pt will be able to participate in a self care corner balance HEP. 12/16/2024 Patient reports she is performing HEP every day as reviewed by PT previous sessions. 12/20/24: Initiated corner balance SLS ex. 12/26/24: Initiated corner tandem stance if spouse can guard pt for safety. 12/30/24: continued corner bal NBOS, tandem, SLS, able to compelete HTs and EC NBOS slight sway self recovery. 01/16/25: worked on fwd HTs and back stepping hallway in PT only, slight sways but no LOB, cued DF heel toe and softer stepping. STG Duration 02/28/25 progressed 01/16/25 Care Home Goal (LTG) Pt will be independent on a self care HEP to improve core & R LE strength. 12/08/24: Modified ex to increase to 6 reps and placed trunk rot on hold. 12/20/24: HEP: LB program: Neutral spine (Pelvic Tilt, TA , Mutifidi), Heel slides, Heel slides & SLR. Issued Handouts: Body mechanics Basics and for Daily activities, and for log roll transfer. 01/16/25: hand written on personal [facility] personal HO: resisted side stepping and reviwe past resisted seated ABD. 01/19/25: added [place] LE ex: LAQ, ABD, HC curl, HR, Mini squat, Semitandem stance. 01/31/25: Handouts for Body mechanics for ADLs and Proper posture: The [place] to Safe Movement for all positions. LTG Duration 03/16/25 progressed 01/31/25 Assessment Summary Assessment 84 yo female attending rehabilitation for R LE neuropathy, w/Lumbar disc herniation, chronic R LE sciatic pain (including R LBP first in AM), multi-level disc bulges and central canal stenosis in L/S; areas of both retro- and reuben-listhesis with lumbar shift L. Today, the pt notes for the first time she had neuropathy in the evening only 1x since last session (past 7 days). She appears to have been trying to be more compliant with her body mechanics with ADLs at home and doing self STM of her R lateral thigh at nighttime to reduce symptoms of nerve pain (no c/o pain during the day). She is still quite sensitive in her R lateral thigh and lower leg to pressure/palpation. This is the first time she has had improvement in this area; therefore I recommend the pt continue skilled physical therapy for further core stabilization, LE neural glides, STM, and LE strengthening to help resolve or decrease her nighttime LE pain through behavior changes (posturing and body mechanics) , and to improve her balance and safety with gait, as her R LE nighttime pain and neuropathy is reduced. Pt BETTINA not completed, will do at next session if not completed. Physical Therapy Plan Frequency and Duration Frequency of Treatment 2x/Week Duration of treatment (weeks) 5 Plan of Care Start Date 02/07/25 Plan of Care End Date 02/28/25 Therapeutic Interventions Therapeutic Interventions Balance Training,Gait Training ,Home Exercise Program,Manual Therapy,Neuromuscular Re- education,Self-Care/Home Management,Soft Tissue Mobilization,Therapeutic Activities,Therapeutic Exercises Modalities Cold Pack/Ice Massage,Hot Packs Next Visit Focus/Plan Next Note Type Treatment Note Next Visit Plan Pt to complete BETTINA and score. Cont 2x/wk, soon Sister might having surgery, may need to reduce to 1x/wk as pt might be in [place]. Next: Assess R LE neuropathy outcome following last treatment session. Assess and modify pt's nighttime sleeping position to minimize her nighttime R LE pain. Progress Core stab & LE strengthening (in neutral spine) to improve balance and safety with gait, but avoid SL activities that might increase her R LE nerve symptoms (numbness/tingling). Avoid activities that increases pt sensitive to LE's , try hot/cold treatment during Core stab exercises. Further training for hip hinging & squatting during functional activities, but avoid repetitive sciatic nerve tensioning into nerve symptoms. Recheck response to tandem bal walking progression in PT only finger glide wall for gait bal progression. POC: L/S dyfunction and R Sciatic pain rehab. Ther Ex: Hip stretches, when pain reduced. Caution due to Grade 1 anterolisthesis of L3 on L4 ( retrolisthesis at L1 on L2, L2 on L3 and L5 on S1). Might try MH/IFES of L/S to reduce neuro symptoms in R LE.
--- NOTE | 2025-02-07 18:00 | PT.OTN ---
Current Diagnoses Other chronic pain (02/07/25) Spondylosis without myelopathy or radiculopathy, lumbar region (02/07/25) Radiculopathy, lumbar region (02/07/25) Low back pain, unspecified (02/07/25) Physical Therapy Treatment Note PT-OP-A Visit Information Start: 12/03/24 18:09 Freq: Status: Active Protocol: Document 02/07/25 13:00 LRN (Rec: 02/07/25 13:52 LRN Laptop) Out-Patient Physical Therapy Visit Information Visit Information Visit Type Progress Note Visit Start Time 13:00 Visit Stop Time 13:50 Visit Number 17 (PN) Evaluation Information Evaluation Date 12/05/24 Precautions Precautions Per intake form: Osteoporosis , SOB from pulmonary fibrosis, twisted bowel, breast implant . PT-OP-B Current Condition Start: 12/03/24 18:09 Freq: Status: Active Protocol: Document 12/05/24 13:00 LRN (Rec: 12/05/24 13:56 LRN [id number]) Current Condition History of Current Condition Onset Date 2 yrs ago Current Complaints R LE is now dull, annoying, achy pain, with worst part behind the knee. History of Current Condition Insidious onset of tingling in RLE and was given Vit D that didn't help. 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 Her PCP (Dr He) referred her to have an EMG and states her problem was not determined to be neurological, but coming from the spine. Early Jul [address] Hampton and had a cortisone injection in spine ~August 2024, with no change in symptoms. Just this morning she had a 2nd accupuncture appt by Dr. Castanon, and no long has the needles/pins feeling so he is now being referred to physical therapy. The R LE symptom is now a dull annoying achy pain , worst pain is behind the knee. She is able to sleep on her back or L side. R sidelie is uncomfortable due to R hip pain. Walking, pt feels like a rubber band is under the R foot all the way to the hip. When stepping feels like something is lifting it that she isn't controlling and she just follows her leg. She states her spouse says her R leg swings around (circumducts) walking. Prior Treatments and Tests Pt reports prior Accupuncture appts x 2, by Dr. Castanon. MRI 07/02/24 of L/S: mild levoscoliosis centered at L2, mild retrolisthesis of L1 on L2 and L2 on L3, Grade 1 anterolisthesis of L3 on L4, mild of L5 on S1. Multilevel disc bulge and desiccation and multilevel central canal stenosis in the lumbar spine. Active small Schmorl's node at inferior endplate of T11. Future Testing and Treatments Planned Next Dr. Castanon accupuncture appt is 12/16/24. Treatment Goals Patient/Caregiver Goals Pt goals: - Eliminate R LE pain to go for walk w/o having akward leg spasms. - Remove the clumsiness/ swerving while walking and ache in R LE. - agreeable to a HEP. Personal Factors Other Personal Factors That May Effect SOB from Pulmonary Fibrosis, Therapy/Recovery Thyroid disorder, Used to walk daily, States few months ago in pulmonary rehab she exercised 90 minutes including walking 3x/wk (12 wks). PT-OP-C Subjective Start: 12/03/24 18:09 Freq: Status: Active Protocol: Document 02/07/25 13:00 LRN (Rec: 02/07/25 13:52 LRN Laptop) OP-PT Subjective Patient Comments Patient Comments States she only had numbness in her LE's x 1 since last visit. Didn't make the beds. PT-OP-E Functional Tests Start: 12/03/24 18:09 Freq: Status: Active Protocol: Document 01/17/25 14:44 LRN (Rec: 01/17/25 16:21 LRN [id number]) Functional Tests 2 Minute Walk Test Distance 358 ft, 10 in Device Used None Comments ~2-3x excessive sway during gait PT-OP-G Mobility & Gait Start: 12/03/24 18:09 Freq: Status: Active Protocol: Document 12/05/24 13:00 LRN (Rec: 12/05/24 13:56 LRN [id number]) OP Gait Assessment Gait Gait Assistance Required: Independent Able to Maintain Weight Bearing Status Yes During Gait Assistive Devices Assistive Device None Gait Deviations General Gait Pattern Decreased Stride Length, Decreased Feet Clearance Factors Limiting Gait Function Factors Limiting Gait Function Incoordination,Pain Comments Gait Comments Occasional swinging out of R LE during swing through phase. PT-OP-H Neuro Start: 12/03/24 18:09 Freq: Status: Active Protocol: Document 12/05/24 13:00 LRN (Rec: 12/05/24 13:56 LRN [id number]) Sensation Evaluation Gross Sensation Gross Sensation WNL Deep Tendon Reflex & Clonus Assessment Deep Tendon Reflex Left Achilles Deep Tendon Reflex 2+ Normal Right Achilles Deep Tendon Reflex 3+ Normal But Brisk Bilateral Patellar Deep Tendon Reflex 3+ Normal But Brisk PT-OP-J Posture/Palpation/Skin Start: 12/03/24 18:09 Freq: Status: Active Protocol: Document 12/05/24 13:00 LRN (Rec: 12/05/24 13:56 LRN [id number]) Posture Evaluation Position Standing Head/C-Spine Posture Side Bent Left,Forward Head L-Spine Posture Shifted Left Shoulder Posture (R) Elevated Arm Posture (L) Internally Rotated,(R) Internally Rotated Pelvis Posture (R) Iliac Crest Superior,(L) PSIS Posterior Hip Posture (L) Externally Rotated Ankle/Foot Posture (L) Calcaneal Inversion Palpation Assessment Location R LE Palpation Location Normal sensation without pain complaints Low back Palpation Location R SIJ, gluteals Palpation Findings Tenderness PT-OP-K Range of Motion Start: 12/03/24 18:09 Freq: Status: Active Protocol: Document 12/26/24 13:52 LRN (Rec: 12/26/24 14:35 LRN [id number]) Lumbar Spine Range of Motion Lumbar Spine Active Degrees Testing Position Standing Flexion 110 Extension 5 Rotation Left 30 Rotation Right 10 Lateral Flexion Left 10 Lateral Flexion Right 7 PT-OP-L Special Tests Start: 12/03/24 18:09 Freq: Status: Active Protocol: Document 12/05/24 13:00 LRN (Rec: 12/05/24 13:56 LRN [id number]) Special Tests Lumbar Spine Special Tests Manual Traction Test Results - Comments No change with R LE pain Straight Leg Raise Test Results - Comments Mikael is 90 deg's w/o LE pain onset Slump Test Results - bilaterally Comments No change in sensation or pain Vertical Spine Loading Test Results - Comments No change in symptoms PT-OP-M Strength Start: 12/03/24 18:09 Freq: Status: Active Protocol: Document 12/13/24 13:46 LRN (Rec: 12/13/24 14:32 LRN [id number]) Toe Strength Toe Manual Muscle Testing Left Great Toe Flexion 4+ Good+ Comments Pt is not able to perform MTP, PIP or DIP flexion Right Great Toe Flexion 5 Normal Comments Pt is not able to perform MTP, PIP or DIP flexion PT-OP-Q Treatments Start: 12/03/24 18:09 Freq: Status: Active Protocol: Document 02/07/25 13:00 LRN (Rec: 02/07/25 13:52 LRN Laptop) Therapeutic Exercises Supine Exercises ITB stretch Supine Exercise Name Assess for adding NS/Heel Slides Side bilateral Equipment Used Hand behind back Reps/Minutes 10x 3 Comments Much training for NS positioning Alt arm leg lifts Side bilateral Equipment Used Hand behind back Reps/Minutes 10x 3 Comments Much training for NS positioning Hamstring stretch Supine Exercise Name Hamstring/LE neural glide & peroneus longus/LE neural glide Side bilateral Reps/Minutes 8' Therapeutic Activity Therapeutic Activity Car sitting positioning Reps/Minutes 4' Comments Positioning training for: regular sitting and reclined positioning w/foot support for long car ride positioning. Transfer training Name Stand<>supine Reps/Minutes 4' Manual Therapy Treatment Consent Patient gave verbal consent for manual Yes treatment Soft Tissue Mobilization Low back Body Location Soft tissue mob for lumbar traction at lateral trunk and posterior LB Mobilization Type Sustained Pressure Intensity/Depth Superficial Body Position L Sidelying Comments Folded hand towel under curve of lateral trunk. Lateral trunk mob: Decreased lateral upper thigh discomfort with pressure. Posterior trunk mob at sacrum: onset of tingling/numbness in lateral lower leg. L lateral leg Body Location .... R lateral leg Body Location STM at anterior tib Mobilization Type Strumming Intensity/Depth Superficial Body Position L Sidelye Comments Folded hand towel under curve of lateral trunk. Discomfort at mid lower leg in region of anterior tibialis not improved with very light STM. Self-Care/Home Management Treatment Education Other Education Pt education in spinal alignment and importance of maintaining neutral spine. PT-OP-T Assessment and Plan Start: 12/03/24 18:09 Freq: Status: Active Protocol: Document 02/07/25 13:00 LRN (Rec: 02/07/25 13:52 LRN Laptop) Physical Therapy Assessment Rehab Potential Rehabilitation Potential Good Evaluation Complexity Number of Personal Factors/Comorbidities 1-2 Number of Body Systems Impaired 4 or More Clinical Presentation at Evaluation Evolving Impairments Impairments Activity Tolerance,Balance, Gait,Pain,ROM,Sensation,Soft Tissue Mobility,Strength Goals Three Impairment Pain and clumsiness of R LE with walking Short Term Goal (STG) Improve R LE strength with pt able to walk with reported less clumsiness. 12/16/2024 Patient reports she feels slighlty less clumsy with ambulation, feels like right leg is moving straighter . 12/23/2024 Pt reports awakening w/ increased R foot numbness which improves throughout treatment session today. It's waking back up. 12/30/24: progression: trialed in PT tandem walking in hallway finger glide> PRN cues for tall posture, TA and slower pacing feel 2 ft of other, improved with reps less UE support. 01/03/25: Pt reporting walking a straighter path with spouse and her not feeling like she has to hang onto him for safety as much as when she first started therapy. 01/11/25: first think in am more clumsi, later day improves, when she walks faster outside is better. IF takes longer walk [place] neighborhood 4-5 blocks and back, notices little viering but no LOB she does get of breath before tires, so sits on bench at [employer] rest. 01/31/25: Pt reporting more stable walking. STG Duration 02/28/25 progressing Utility Gelatin Maker Goal (LTG) Modify walking gait and time as needed to eliminate R LE pain walking. 01/03/25: R leg pain behind the knee and down lateral side of leg to ankle (foot numb all the time) at nighttime only. No pain with walking. After doing stairs, her R calf area was painful and she was very SOB. 01/16/25: no pain just dull ache in R lateral calf, still gets post ex, gets better but not fully goes away with walks or seated resisted abd LTG Duration 03/16/25 revisited more ache (not pain since 01/06/25) Two Impairment Decreased gait stability Short Term Goal (STG) Improve balance to decrease swerving with gait. 01/03/25: Pt able to walk without swerving 10' x 4. Swerving after ~ 60-80'. STG Duration 02/28/25 progressed 01/03/25 Snf Goal (LTG) Improve gait stability to remove swerving and akward leg spasms while walking. (TUG 20 secs on 12/26/24) 01/03/25: Pt states spouse feels she is not swerving as much on her walk. 01/17/25: 2 minute walk test: 358'10 LTG Duration 03/16/25 progressing One Impairment Pt lacks appropriate self are home exercise program (HEP) Short Term Goal (STG) Pt will be able to participate in a self care corner balance HEP. 12/16/2024 Patient reports she is performing HEP every day as reviewed by PT previous sessions. 12/20/24: Initiated corner balance SLS ex. 12/26/24: Initiated corner tandem stance if spouse can guard pt for safety. 12/30/24: continued corner bal NBOS, tandem, SLS, able to compelete HTs and EC NBOS slight sway self recovery. 01/16/25: worked on fwd HTs and back stepping hallway in PT only, slight sways but no LOB, cued DF heel toe and softer stepping. STG Duration 02/28/25 progressed 01/16/25 Utility Gelatin Maker Goal (LTG) Pt will be independent on a self care HEP to improve core & R LE strength. 12/08/24: Modified ex to increase to 6 reps and placed trunk rot on hold. 12/20/24: HEP: LB program: Neutral spine (Pelvic Tilt, TA , Mutifidi), Heel slides, Heel slides & SLR. Issued Handouts: Body mechanics Basics and for Daily activities, and for log roll transfer. 01/16/25: hand written on personal [employer] personal HO: resisted side stepping and reviwe past resisted seated ABD. 01/19/25: added [place] LE ex: LAQ, ABD, HC curl, HR, Mini squat, Semitandem stance. 01/31/25: Handouts for Body mechanics for ADLs and Proper posture: The [place] to Safe Movement for all positions. LTG Duration 03/16/25 progressed 01/31/25 Assessment Summary Assessment 84 yo female attending rehabilitation for R LE neuropathy, w/Lumbar disc herniation, chronic R LE sciatic pain (including R LBP first in AM), multi-level disc bulges and central canal stenosis in L/S; areas of both retro- and reuben-listhesis with lumbar shift L. Today, the pt notes for the first time she had neuropathy in the evening only 1x since last session (past 7 days). She appears to have been trying to be more compliant with her body mechanics with ADLs at home and doing self STM of her R lateral thigh at nighttime to reduce symptoms of nerve pain (no c/o pain during the day). She is still quite sensitive in her R lateral thigh and lower leg to pressure/palpation. This is the first time she has had improvement in this area; therefore I recommend the pt continue skilled physical therapy for further core stabilization, LE neural glides, STM, and LE strengthening to help resolve or decrease her nighttime LE pain through behavior changes (posturing and body mechanics) , and to improve her balance and safety with gait, as her R LE nighttime pain and neuropathy is reduced. Pt BETTINA not completed, will do at next session if not completed. Physical Therapy Plan Frequency and Duration Frequency of Treatment 2x/Week Duration of treatment (weeks) 5 Plan of Care Start Date 02/07/25 Plan of Care End Date 03/16/25 Therapeutic Interventions Therapeutic Interventions Balance Training,Gait Training ,Home Exercise Program,Manual Therapy,Neuromuscular Re- education,Self-Care/Home Management,Soft Tissue Mobilization,Therapeutic Activities,Therapeutic Exercises Modalities Cold Pack/Ice Massage,Hot Packs Next Visit Focus/Plan Next Note Type Treatment Note Next Visit Plan Pt to complete BETTINA and score. Cont 2x/wk, soon Sister might having surgery, may need to reduce to 1x/wk as pt might be in [place]. Next: Assess R LE neuropathy outcome following last treatment session. Assess and modify pt's nighttime sleeping position to minimize her nighttime R LE pain. Progress Core stab & LE strengthening (in neutral spine) to improve balance and safety with gait, but avoid SL activities that might increase her R LE nerve symptoms (numbness/tingling). Avoid activities that increases pt sensitive to LE's , try hot/cold treatment during Core stab exercises. Further training for hip hinging & squatting during functional activities, but avoid repetitive sciatic nerve tensioning into nerve symptoms. Recheck response to tandem bal walking progression in PT only finger glide wall for gait bal progression. POC: L/S dyfunction and R Sciatic pain rehab. Ther Ex: Hip stretches, when pain reduced. Caution due to Grade 1 anterolisthesis of L3 on L4 ( retrolisthesis at L1 on L2, L2 on L3 and L5 on S1). Might try MH/IFES of L/S to reduce neuro symptoms in R LE.
--- NOTE | 2025-02-10 13:47 | PT.OTN ---
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 She has incorporated a self vibrating gun to bottom of foot and calf and stokes and not have pain as much sleeping of RLE. The ache in R lateral leg is much better. PT-OP-B Current Condition Start: 12/03/24 18:09 Freq: Status: Active Protocol: Document 12/05/24 13:00 LRN (Rec: 12/05/24 13:56 LRN [id number]) Current Condition History of Current Condition Onset Date 2 yrs ago Current Complaints R LE is now dull, annoying, achy pain, with worst part behind the knee. History of Current Condition Insidious onset of tingling in RLE and was given Vit D that didn't help. 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 Her PCP (Dr He) referred her to have an EMG and states her problem was not determined to be neurological, but coming from the spine. Early Jul [address] Hampton and had a cortisone injection in spine ~August 2024, with no change in symptoms. Just this morning she had a 2nd accupuncture appt by Dr. Castanon, and no long has the needles/pins feeling so he is now being referred to physical therapy. The R LE symptom is now a dull annoying achy pain , worst pain is behind the knee. She is able to sleep on her back or L side. R sidelie is uncomfortable due to R hip pain. Walking, pt feels like a rubber band is under the R foot all the way to the hip. When stepping feels like something is lifting it that she isn't controlling and she just follows her leg. She states her spouse says her R leg swings around (circumducts) walking. Prior Treatments and Tests Pt reports prior Accupuncture appts x 2, by Dr. Castanon. MRI 07/02/24 of L/S: mild levoscoliosis centered at L2, mild retrolisthesis of L1 on L2 and L2 on L3, Grade 1 anterolisthesis of L3 on L4, mild of L5 on S1. Multilevel disc bulge and desiccation and multilevel central canal stenosis in the lumbar spine. Active small Schmorl's node at inferior endplate of T11. Future Testing and Treatments Planned Next Dr. Castanon accupuncture appt is 12/16/24. Treatment Goals Patient/Caregiver Goals Pt goals: - Eliminate R LE pain to go for walk w/o having akward leg spasms. - Remove the clumsiness/ swerving while walking and ache in R LE. - agreeable to a HEP. Personal Factors Other Personal Factors That May Effect SOB from Pulmonary Fibrosis, Therapy/Recovery Thyroid disorder, Used to walk daily, States few months ago in pulmonary rehab she exercised 90 minutes including walking 3x/wk (12 wks). PT-OP-C Subjective Start: 12/03/24 18:09 Freq: Status: Active Protocol: Document 02/10/25 13:04 SP (Rec: 02/10/25 13:49 SP Laptop) OP-PT Subjective Patient Comments Patient Comments She states no pain with sleeping. Using massage gun to legs and helping pain reduction before going to bed. PT-OP-E Functional Tests Start: 12/03/24 18:09 Freq: Status: Active Protocol: Document 01/17/25 14:44 LRN (Rec: 01/17/25 16:21 LRN [id number]) Functional Tests 2 Minute Walk Test Distance 358 ft, 10 in Device Used None Comments ~2-3x excessive sway during gait PT-OP-G Mobility & Gait Start: 12/03/24 18:09 Freq: Status: Active Protocol: Document 12/05/24 13:00 LRN (Rec: 12/05/24 13:56 [facility] [id number]) OP Gait Assessment Gait Gait Assistance Required: Independent Able to Maintain Weight Bearing Status Yes During Gait Assistive Devices Assistive Device None Gait Deviations General Gait Pattern Decreased Stride Length, Decreased Feet Clearance Factors Limiting Gait Function Factors Limiting Gait Function Incoordination,Pain Comments Gait Comments Occasional swinging out of R LE during swing through phase. PT-OP-H Neuro Start: 12/03/24 18:09 Freq: Status: Active Protocol: Document 12/05/24 13:00 LRN (Rec: 12/05/24 13:56 [facility] [id number]) Sensation Evaluation Gross Sensation Gross Sensation WNL Deep Tendon Reflex & Clonus Assessment Deep Tendon Reflex Left Achilles Deep Tendon Reflex 2+ Normal Right Achilles Deep Tendon Reflex 3+ Normal But Brisk Bilateral Patellar Deep Tendon Reflex 3+ Normal But Brisk PT-OP-J Posture/Palpation/Skin Start: 12/03/24 18:09 Freq: Status: Active Protocol: Document 12/05/24 13:00 LRN (Rec: 12/05/24 13:56 [facility] [id number]) Posture Evaluation Position Standing Head/C-Spine Posture Side Bent Left,Forward Head L-Spine Posture Shifted Left Shoulder Posture (R) Elevated Arm Posture (L) Internally Rotated,(R) Internally Rotated Pelvis Posture (R) Iliac Crest Superior,(L) PSIS Posterior Hip Posture (L) Externally Rotated Ankle/Foot Posture (L) Calcaneal Inversion Palpation Assessment Location R LE Palpation Location Normal sensation without pain complaints Low back Palpation Location R SIJ, gluteals Palpation Findings Tenderness PT-OP-K Range of Motion Start: 12/03/24 18:09 Freq: Status: Active Protocol: Document 12/26/24 13:52 LRN (Rec: 12/26/24 14:35 LRN [id number]) Lumbar Spine Range of Motion Lumbar Spine Active Degrees Testing Position Standing Flexion 110 Extension 5 Rotation Left 30 Rotation Right 10 Lateral Flexion Left 10 Lateral Flexion Right 7 PT-OP-L Special Tests Start: 12/03/24 18:09 Freq: Status: Active Protocol: Document 12/05/24 13:00 LRN (Rec: 12/05/24 13:56 [facility] [id number]) Special Tests Lumbar Spine Special Tests Manual Traction Test Results - Comments No change with R LE pain Straight Leg Raise Test Results - Comments Mikael is 90 deg's w/o LE pain onset Slump Test Results - bilaterally Comments No change in sensation or pain Vertical Spine Loading Test Results - Comments No change in symptoms PT-OP-M Strength Start: 12/03/24 18:09 Freq: Status: Active Protocol: Document 12/13/24 13:46 LRN (Rec: 12/13/24 14:32 LRN [id number]) Toe Strength Toe Manual Muscle Testing Left Great Toe Flexion 4+ Good+ Comments Pt is not able to perform MTP, PIP or DIP flexion Right Great Toe Flexion 5 Normal Comments Pt is not able to perform MTP, PIP or DIP flexion PT-OP-Q Treatments Start: 12/03/24 18:09 Freq: Status: Active Protocol: Document 02/10/25 13:04 SP (Rec: 02/10/25 13:49 SP Laptop) Therapeutic Exercises Supine Exercises T/S ext Supine Exercise Name Mikael Arm lifts for T/S ext with Lower L/S in neutral w/phys c 's to UB/LB. Equipment Used self-monitoring neutral spine medial to ASIS Reps/Minutes 2-3 SH x 15 Comments Cued to keep neutral spine & to get T/S ext w/breath. NS/Heel Slides Side bilateral Equipment Used Hand behind back Reps/Minutes 10x 3 Comments Continued for NS positioning, slow foot lift slide/return- impr lvl pelvis Alt arm leg lifts Supine Exercise Name Modified bug Side bilateral Equipment Used Hand behind back Reps/Minutes 10x 3 Comments tactile cue under back Standing Exercises HIp flexor stretch Standing Exercise Name added to HEP with HO Equipment Used hands on doorframe Reps/Minutes 2x 30 SH Comments cues lunge into front leg stretching back front thigh and hip flexor Manual Therapy Treatment Consent Patient gave verbal consent for manual Yes treatment Soft Tissue Mobilization Low back Body Location R VL, TFL, ITB Mobilization Type Rolling Intensity/Depth Superficial Body Position Hooklying Comments wedge under BLEs gentle STMs, improved with time R lateral leg Body Location STM at anterior tib, proneal Mobilization Type Strumming Intensity/Depth Superficial Body Position Hooklying Comments wedge under BLEs Improved with time Self-Care/Home Management Treatment Education Patient Education Body Mechanics,Home Exercise Program,Joint Protection,Pain Management,Posture Other Education Ed spinal alignment sleeping with use pillows SL: between BLEs thighs/calves and supine under upper thighs. Added hip flexor stretch to HEp with HO PT-OP-T Assessment and Plan Start: 12/03/24 18:09 Freq: Status: Active Protocol: Document 02/10/25 13:04 SP (Rec: 02/10/25 13:49 SP Laptop) Physical Therapy Assessment Goals Three Impairment Pain and clumsiness of R LE with walking Short Term Goal (STG) Improve R LE strength with pt able to walk with reported less clumsiness. 12/16/2024 Patient reports she feels slighlty less clumsy with ambulation, feels like right leg is moving straighter . 12/23/2024 Pt reports awakening w/ increased R foot numbness which improves throughout treatment session today. It's waking back up. 12/30/24: progression: trialed in PT tandem walking in hallway finger glide> PRN cues for tall posture, TA and slower pacing feel 2 ft of other, improved with reps less UE support. 01/03/25: Pt reporting walking a straighter path with spouse and her not feeling like she has to hang onto him for safety as much as when she first started therapy. 01/11/25: first think in am more clumsi, later day improves, when she walks faster outside is better. IF takes longer walk [place] neighborhood 4-5 blocks and back, notices little viering but no LOB she does get of breath before tires, so sits on bench at [employer] rest. 01/31/25: Pt reporting more stable walking. STG Duration 02/28/25 progressing Mcc Goal (LTG) Modify walking gait and time as needed to eliminate R LE pain walking. 01/03/25: R leg pain behind the knee and down lateral side of leg to ankle (foot numb all the time) at nighttime only. No pain with walking. After doing stairs, her R calf area was painful and she was very SOB. 01/16/25: no pain just dull ache in R lateral calf, still gets post ex, gets better but not fully goes away with walks or seated resisted abd LTG Duration 03/16/25 revisited more ache (not pain since 01/06/25) Two Impairment Decreased gait stability Short Term Goal (STG) Improve balance to decrease swerving with gait. 01/03/25: Pt able to walk without swerving 10' x 4. Swerving after ~ 60-80'. STG Duration 02/28/25 progressed 01/03/25 Blocker And Sewer Goal (LTG) Improve gait stability to remove swerving and akward leg spasms while walking. (TUG 20 secs on 12/26/24) 01/03/25: Pt states spouse feels she is not swerving as much on her walk. 01/17/25: 2 minute walk test: 358'10 LTG Duration 03/16/25 progressing One Impairment Pt lacks appropriate self are home exercise program (HEP) Short Term Goal (STG) Pt will be able to participate in a self care corner balance HEP. 12/16/2024 Patient reports she is performing HEP every day as reviewed by PT previous sessions. 12/20/24: Initiated corner balance SLS ex. 12/26/24: Initiated corner tandem stance if spouse can guard pt for safety. 12/30/24: continued corner bal NBOS, tandem, SLS, able to compelete HTs and EC NBOS slight sway self recovery. 01/16/25: worked on fwd HTs and back stepping hallway in PT only, slight sways but no LOB, cued DF heel toe and softer stepping. STG Duration 02/28/25 progressed 01/16/25 Blocker And Sewer Goal (LTG) Pt will be independent on a self care HEP to improve core & R LE strength. 12/08/24: Modified ex to increase to 6 reps and placed trunk rot on hold. 12/20/24: HEP: LB program: Neutral spine (Pelvic Tilt, TA , Mutifidi), Heel slides, Heel slides & SLR. Issued Handouts: Body mechanics Basics and for Daily activities, and for log roll transfer. 01/16/25: hand written on personal [employer] personal HO: resisted side stepping and reviwe past resisted seated ABD. 01/19/25: added [place] LE ex: LAQ, ABD, HC curl, HR, Mini squat, Semitandem stance. 01/31/25: Handouts for Body mechanics for ADLs and Proper posture: The [place] to Safe Movement for all positions. 02/10/25: added sleeping use pillows side/hooklying and hip flexor stretch in doorway. LTG Duration 03/16/25 progressed 02/10/25 Assessment Summary Assessment Pt responded well to gentle manual, report less painful spot with time STMs as noticing with her massage gun. Good response to ther ex with min cues for proper form and breath. REports better understanding with use pillows sleeping and good response to added doorway with HO hip stretch for R anterior thigh and hip. Provided tactile feedback through out ex for PPT support with TA during ex. Physical Therapy Plan Frequency and Duration Frequency of Treatment 2x/Week Duration of treatment (weeks) 5 Plan of Care Start Date 02/07/25 Plan of Care End Date 03/16/25 Therapeutic Interventions Therapeutic Interventions Balance Training,Gait Training ,Home Exercise Program,Manual Therapy,Neuromuscular Re- education,Self-Care/Home Management,Soft Tissue Mobilization,Therapeutic Activities,Therapeutic Exercises Modalities Cold Pack/Ice Massage,Hot Packs Next Visit Focus/Plan Next Note Type Treatment Note Next Visit Plan Pt to complete BETTINA and score. Cont 2x/wk, soon Sister might having surgery, may need to reduce to 1x/wk as pt might be in [place]. Next: Assess R LE neuropathy outcome following last treatment session. Progress Core stab & LE strengthening ( in neutral spine) to improve balance and safety with gait, but avoid SL activities that might increase her R LE nerve symptoms (numbness/tingling). Avoid activities that increases pt sensitive to LE's , try hot/cold treatment during Core stab exercises. Further training for hip hinging & squatting during functional activities, but avoid repetitive sciatic nerve tensioning into nerve symptoms. Recheck response to tandem bal walking progression in PT only finger glide wall for gait bal progression. POC: L/S dyfunction and R Sciatic pain rehab. Ther Ex: Hip stretches, when pain reduced. *Caution due to Grade 1 anterolisthesis of L3 on L4 ( retrolisthesis at L1 on L2, L2 on L3 and L5 on S1). Might try MH/IFES of L/S to reduce neuro symptoms in R LE.
--- NOTE | 2025-02-14 13:38 | PT.OTN ---
Current Diagnoses Other chronic pain (02/14/25) Spondylosis without myelopathy or radiculopathy, lumbar region (02/14/25) Radiculopathy, lumbar region (02/14/25) Low back pain, unspecified (02/14/25) Physical Therapy Treatment Note PT-OP-A Visit Information Start: 12/03/24 18:09 Freq: Status: Active Protocol: Document 02/14/25 12:17 LRN (Rec: 02/14/25 13:34 LRN Laptop) Out-Patient Physical Therapy Visit Information Visit Information Visit Type Treatment Note Visit Note KX after 19 visits.% Visit Start Time 12:17 Visit Stop Time 13:01 Visit Number 19 (PN+2) Evaluation Information Evaluation Date 12/05/24 Precautions Precautions Per intake form: Osteoporosis , SOB from pulmonary fibrosis, twisted bowel, breast implant . She has incorporated a self vibrating gun to bottom of foot and calf and stokes and not have pain as much sleeping of RLE. The ache in R lateral leg is much better. PT-OP-B Current Condition Start: 12/03/24 18:09 Freq: Status: Active Protocol: Document 12/05/24 13:00 LRN (Rec: 12/05/24 13:56 LRN [id number]) Current Condition History of Current Condition Onset Date 2 yrs ago Current Complaints R LE is now dull, annoying, achy pain, with worst part behind the knee. History of Current Condition Insidious onset of tingling in RLE and was given Vit D that didn't help. 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 Her PCP (Dr He) referred her to have an EMG and states her problem was not determined to be neurological, but coming from the spine. Early Jul [address] Hampton and had a cortisone injection in spine ~August 2024, with no change in symptoms. Just this morning she had a 2nd accupuncture appt by Dr. Castanon, and no long has the needles/pins feeling so he is now being referred to physical therapy. The R LE symptom is now a dull annoying achy pain , worst pain is behind the knee. She is able to sleep on her back or L side. R sidelie is uncomfortable due to R hip pain. Walking, pt feels like a rubber band is under the R foot all the way to the hip. When stepping feels like something is lifting it that she isn't controlling and she just follows her leg. She states her spouse says her R leg swings around (circumducts) walking. Prior Treatments and Tests Pt reports prior Accupuncture appts x 2, by Dr. Castanon. MRI 07/02/24 of L/S: mild levoscoliosis centered at L2, mild retrolisthesis of L1 on L2 and L2 on L3, Grade 1 anterolisthesis of L3 on L4, mild of L5 on S1. Multilevel disc bulge and desiccation and multilevel central canal stenosis in the lumbar spine. Active small Schmorl's node at inferior endplate of T11. Future Testing and Treatments Planned Next Dr. Castanon accupuncture appt is 12/16/24. Treatment Goals Patient/Caregiver Goals Pt goals: - Eliminate R LE pain to go for walk w/o having akward leg spasms. - Remove the clumsiness/ swerving while walking and ache in R LE. - agreeable to a HEP. Personal Factors Other Personal Factors That May Effect SOB from Pulmonary Fibrosis, Therapy/Recovery Thyroid disorder, Used to walk daily, States few months ago in pulmonary rehab she exercised 90 minutes including walking 3x/wk (12 wks). PT-OP-C Subjective Start: 12/03/24 18:09 Freq: Status: Active Protocol: Document 02/14/25 12:17 LRN (Rec: 02/14/25 13:34 LRN Laptop) OP-PT Subjective Patient Comments Patient Comments States using your massage gun and there is less numbness and tingling. Cold sensation up to knee and the burning pain and itch is gone. Only thing left is the tingling numbness in the ball of the feet toes are asleep. Patient Questionnaires Oswestry Low Back Index Oswestry Score 12 Oswestry Impairment 1 to 19% Impaired (Score 1-19) PT-OP-E Functional Tests Start: 12/03/24 18:09 Freq: Status: Active Protocol: Document 02/14/25 12:17 LRN (Rec: 02/14/25 13:34 LRN Laptop) Functional Tests Timed Up and Go (TUG) Score 13 TUG Impairment Rating 20 to <40% Impaired (Score 12- 13) PT-OP-G Mobility & Gait Start: 12/03/24 18:09 Freq: Status: Active Protocol: Document 12/05/24 13:00 LRN (Rec: 12/05/24 13:56 LRN [id number]) OP Gait Assessment Gait Gait Assistance Required: Independent Able to Maintain Weight Bearing Status Yes During Gait Assistive Devices Assistive Device None Gait Deviations General Gait Pattern Decreased Stride Length, Decreased Feet Clearance Factors Limiting Gait Function Factors Limiting Gait Function Incoordination,Pain Comments Gait Comments Occasional swinging out of R LE during swing through phase. PT-OP-H Neuro Start: 12/03/24 18:09 Freq: Status: Active Protocol: Document 12/05/24 13:00 LRN (Rec: 12/05/24 13:56 LRN [id number]) Sensation Evaluation Gross Sensation Gross Sensation WNL Deep Tendon Reflex & Clonus Assessment Deep Tendon Reflex Left Achilles Deep Tendon Reflex 2+ Normal Right Achilles Deep Tendon Reflex 3+ Normal But Brisk Bilateral Patellar Deep Tendon Reflex 3+ Normal But Brisk PT-OP-J Posture/Palpation/Skin Start: 12/03/24 18:09 Freq: Status: Active Protocol: Document 12/05/24 13:00 LRN (Rec: 12/05/24 13:56 LRN [id number]) Posture Evaluation Position Standing Head/C-Spine Posture Side Bent Left,Forward Head L-Spine Posture Shifted Left Shoulder Posture (R) Elevated Arm Posture (L) Internally Rotated,(R) Internally Rotated Pelvis Posture (R) Iliac Crest Superior,(L) PSIS Posterior Hip Posture (L) Externally Rotated Ankle/Foot Posture (L) Calcaneal Inversion Palpation Assessment Location R LE Palpation Location Normal sensation without pain complaints Low back Palpation Location R SIJ, gluteals Palpation Findings Tenderness PT-OP-K Range of Motion Start: 12/03/24 18:09 Freq: Status: Active Protocol: Document 12/26/24 13:52 LRN (Rec: 12/26/24 14:35 LRN [id number]) Lumbar Spine Range of Motion Lumbar Spine Active Degrees Testing Position Standing Flexion 110 Extension 5 Rotation Left 30 Rotation Right 10 Lateral Flexion Left 10 Lateral Flexion Right 7 PT-OP-L Special Tests Start: 12/03/24 18:09 Freq: Status: Active Protocol: Document 12/05/24 13:00 LRN (Rec: 12/05/24 13:56 LRN [id number]) Special Tests Lumbar Spine Special Tests Manual Traction Test Results - Comments No change with R LE pain Straight Leg Raise Test Results - Comments Mikael is 90 deg's w/o LE pain onset Slump Test Results - bilaterally Comments No change in sensation or pain Vertical Spine Loading Test Results - Comments No change in symptoms PT-OP-M Strength Start: 12/03/24 18:09 Freq: Status: Active Protocol: Document 12/13/24 13:46 LRN (Rec: 12/13/24 14:32 LRN [id number]) Toe Strength Toe Manual Muscle Testing Left Great Toe Flexion 4+ Good+ Comments Pt is not able to perform MTP, PIP or DIP flexion Right Great Toe Flexion 5 Normal Comments Pt is not able to perform MTP, PIP or DIP flexion PT-OP-Q Treatments Start: 12/03/24 18:09 Freq: Status: Active Protocol: Document 02/14/25 12:17 LRN (Rec: 02/14/25 13:34 LRN Laptop) Therapeutic Exercises Supine Exercises NS/Heel Slides Supine Exercise Name Crescent arm lift/knee straighten lift, one side at time. Side bilateral Equipment Used Pt not monitoring core stab with hand but cued to keep core stable Reps/Minutes 15x 2 Comments Continued for NS positioning, slow foot lift slide/return- impr lvl pelvis Standing Exercises HIp flexor stretch Equipment Used hands on doorframe Reps/Minutes 5 SH x 15, 2x 30 SH Comments cues lunge into front leg stretching back front thigh, hip flexor, NS. Other Exercises 20' walk Other Exercise Name 20 ft walk Reps/Minutes 13 secs Therapeutic Activity Therapeutic Activity Transfer training Name Sit<>supine Reps/Minutes 6' Manual Therapy Treatment Consent Patient gave verbal consent for manual Yes treatment Soft Tissue Mobilization Ball of foot and toes Body Location R foot Mobilization Type Instrument Assisted,Rolling, Strumming Intensity/Depth Moderate Body Position Sup with legs on bolster Comments numbness of all toes after STM (started with only big toe). R lateral leg Mobilization Type Strumming Body Position sup legs on bolster. PT-OP-T Assessment and Plan Start: 12/03/24 18:09 Freq: Status: Active Protocol: Document 02/14/25 12:17 LRN (Rec: 02/14/25 13:34 LRN Laptop) Physical Therapy Assessment Goals Three Impairment Pain and clumsiness of R LE with walking Short Term Goal (STG) Improve R LE strength with pt able to walk with reported less clumsiness. 12/16/2024 Patient reports she feels slighlty less clumsy with ambulation, feels like right leg is moving straighter . 12/23/2024 Pt reports awakening w/ increased R foot numbness which improves throughout treatment session today. It's waking back up. 12/30/24: progression: trialed in PT tandem walking in hallway finger glide> PRN cues for tall posture, TA and slower pacing feel 2 ft of other, improved with reps less UE support. 01/03/25: Pt reporting walking a straighter path with spouse and her not feeling like she has to hang onto him for safety as much as when she first started therapy. 01/11/25: first think in am more clumsi, later day improves, when she walks faster outside is better. IF takes longer walk [place] neighborhood 4-5 blocks and back, notices little viering but no LOB she does get of breath before tires, so sits on bench at [place] rest. 01/31/25: Pt reporting more stable walking. 02/14/25: Pt reporting less clumsiness STG Duration 02/28/25 (02/14/25: MET GOAL) Mcfp Goal (LTG) Modify walking gait and time as needed to eliminate R LE pain walking. 01/03/25: R leg pain behind the knee and down lateral side of leg to ankle (foot numb all the time) at nighttime only. No pain with walking. After doing stairs, her R calf area was painful and she was very SOB. 01/16/25: no pain just dull ache in R lateral calf, still gets post ex, gets better but not fully goes away with walks or seated resisted abd. 02/14/25: Pt reports no pain in LE with gait. LTG Duration 03/16/25 (02/14/25: MET GOAL) Two Impairment Decreased gait stability Short Term Goal (STG) Improve balance to decrease swerving with gait. 01/03/25: Pt able to walk without swerving 10' x 4. Swerving after ~ 60-80'. 02/14/25: Pt swerved with walking 50'. STG Duration 02/28/25 (02/14/25: NOT MET GOAL) Mcfp Goal (LTG) Improve gait stability to remove swerving and akward leg spasms while walking. (TUG 20 secs on 12/26/24) 01/03/25: Pt states spouse feels she is not swerving as much on her walk. 01/17/25: 2 minute walk test: 358'10 02/14/25: Swerving but no leg spasms with walking. TUG is 13 secs. LTG Duration 03/16/25 (02/14/25: NOT MET GOAL) One Impairment Pt lacks appropriate self are home exercise program (HEP) Short Term Goal (STG) Pt will be able to participate in a self care corner balance HEP. 12/16/2024 Patient reports she is performing HEP every day as reviewed by PT previous sessions. 12/20/24: Initiated corner balance SLS ex. 12/26/24: Initiated corner tandem stance if spouse can guard pt for safety. 12/30/24: continued corner bal NBOS, tandem, SLS, able to compelete HTs and EC NBOS slight sway self recovery. 01/16/25: worked on fwd HTs and back stepping hallway in PT only, slight sways but no LOB, cued DF heel toe and softer stepping. 02/14/25: Pt has been shown corner balance ex's, handout not issued. STG Duration 02/28/25 (02/14/25: NOT MET GOAL) Mcfp Goal (LTG) Pt will be independent on a self care HEP to improve core & R LE strength. 12/08/24: Modified ex to increase to 6 reps and placed trunk rot on hold. 12/20/24: HEP: LB program: Neutral spine (Pelvic Tilt, TA , Mutifidi), Heel slides, Heel slides & SLR. Issued Handouts: Body mechanics Basics and for Daily activities, and for log roll transfer. 01/16/25: hand written on personal [place] personal HO: resisted side stepping and reviwe past resisted seated ABD. 01/19/25: added [place] LE ex: LAQ, ABD, HC curl, HR, Mini squat, Semitandem stance. 01/31/25: Handouts for Body mechanics for ADLs and Proper posture: The [place] to Safe Movement for all positions. 02/10/25: added sleeping use pillows side/hooklying and hip flexor stretch in doorway. LTG Duration 03/16/25 (02/14/25: MET GOAL ) Assessment Summary Assessment Pt has shown good improvement with a reduction of neuropathy symptoms of cold, hot, itching in LE and extreme tenderness of the lateral R LE . Pt has been having no onset of cold>hot>itching in lower legs. Today symptom is only numbness on the ball of R feet and toes. She still demonstrates swerving with gait, but she is ready to continue on her own HEP to try and improve her LE strength and balance. If the pt's balance worsens, I would recommend the pt return for a balance program. BETTINA score 02/07/25 is 12/100 (1-19% impaired ), intitially was 20/100. Physical Therapy Plan Frequency and Duration Frequency of Treatment 2x/Week Duration of treatment (weeks) 5 Plan of Care Start Date 02/07/25 Plan of Care End Date 03/16/25 Discharge Physical Therapy Discharge Reasons Patient Request Discharge Comments Thank you for your referral.
== END 2025-02-21 09:58 | disposition home or self-care (01) ==
LOC: PHYS 12:15
PROVIDERS: Family Provider Family Medicine; PCP Family Medicine; Referring Provider Family Medicine; Visit Provider Family Medicine
DX: M47.816 Spondylosis without myelopathy or radiculopathy, lumbar region (principal); M54.16 Radiculopathy, lumbar region; M54.50 Low back pain, unspecified; G89.29 Other chronic pain
CPT/HCPCS: 97110; 97112; 97116; 97140; 97162; 97530; 97535

== ENCOUNTER → 2025-04-25 10:25 | Outpatient (CLI) | payer MEDICARE, OTHER, SELFPAY ==
[2023-07-15 16:42] VITALS: BMI 22.4
[2025-04-25 11:22] LABS: Add Manual Diff / Slide Review NO; Basophils Absolute Auto 0 /uL (0-100); Basophils Percent Auto 0.4 % (0-2); Eosinophils Absolute Auto 300 /uL (0-450); Eosinophils Percent Auto 4.7 % (2-4); Hematocrit 43.4 % (36-46); Hemoglobin 14.5 g/dL (12.0-16.0); Lymphocytes Absolute Auto 1600 /uL (1100-4500); Lymphocytes Percent Auto 27.3 % (25-40); Mean Corpuscular HGB Conc 33.4 % (30-36); Mean Corpuscular Hemoglobin 30.5 PG (26-34); Mean Corpuscular Volume 91.2 fL (80-100); Monocytes Absolute Auto 500 /uL (0-900); Monocytes Percent Auto 9.2 % (3-14); Neutrophils Absolute Auto 3500 /uL (1500-7000); Neutrophils Percent Auto 58.4 % (50-75); Platelet Count 196 X10^3/uL (150-400); Red Blood Cell Count 4.76 X10^6/uL (4.0-5.2); Red Cell Distribution Width 14.7 % (11.6-14.8); White Blood Cell Count 5.9 X10^3/uL (4.5-11.0)
[2025-04-25 12:11] LABS: TSH w/ Reflex to FT4 2.49 uIU/mL (0.47-4.68)
[2025-04-25 12:16] LABS: C-Reactive Protein Quant < 0.5 mg/dL (<1.0)
[2025-04-25 12:17] LABS: Alanine Aminotransferase 20 IU/L (<35); Albumin 4.7 g/dL (3.5-5.0); Albumin Globulin Ratio 1.6 (1.0-2.8); Alkaline Phosphatase 48 U/L (38-126); Aspartate Aminotransferase 31 IU/L (14-36); BUN Creatinine Ratio 16.4 (6-22); Blood Urea Nitrogen 11 mg/dL (7-17); Calcium 9.7 mg/dL (8.4-10.2); Carbon Dioxide 27 mmol/L (22-32); Chloride 102 mmol/L (98-107); Cholesterol 157 mg/dL (140-199); Estimated Glomerular Filt Rate > 60 mL/min (>60); Glucose 91 mg/dL (70-99); HDL Cholesterol 95 mg/dL (40-60); HEMOLYSIS < 15 (0-50); LDL Cholesterol Calculated 43 mg/dL (<100); Potassium 4.1 mmol/L (3.4-5.1); Sodium 138 mmol/L (137-145); Total Protein 7.7 g/dL (6.3-8.2); Triglycerides 96 mg/dL (35-150)
[2025-04-25 12:27] LABS: Rheumatoid Factor < 8.6 IU/mL (<12.0)
[2025-04-25 12:46] LABS: Folate 3.7 ng/mL (2.76-20.0); Vitamin B12 816 pg/mL (239-931)
[2025-04-25 13:18] LABS: Erythrocyte Sedimentation Rate 6 MM/HR (0-20)
== END ==
LOC: LAB 10:27
PROVIDERS: Internal Medicine; Family Provider Family Medicine; PCP Family Medicine; Referring Provider Family Medicine; Visit Provider Family Medicine
DX: E03.9 Hypothyroidism, unspecified (principal); R06.02 Shortness of breath; J84.9 Interstitial pulmonary disease, unspecified
CPT/HCPCS: 36415; 80053; 80061; 82607; 82746; 83516; 84443; 85025; 85651; 86038; 86140; 86200; 86235; 86256; 86331; 86430; 86602; 86606; 86609; 86671

== ENCOUNTER → 2025-04-26 09:44 | Outpatient (CLI) | payer MEDICARE, OTHER, SELFPAY ==
[2023-07-15 16:42] VITALS: BMI 22.4
--- NOTE | 2025-04-26 09:46 | DI.US.S_ITS ---
PROCEDURE: US THYROID INDICATIONS: Thyroid fullness TECHNIQUE: Real-time scanning was performed of the thyroid gland, with image documentation. COMPARISON: [facility], CT, CT CHEST HIGH RESOLUTION, 03/23/2024, 12:25. FINDINGS: Thyroid: Right lobe measures 3.5 x 1.1 x 0.9 cm. Left lobe measures 3.0 x 0.7 x 1.1 cm. Isthmus is 0.3 cm thick. Echotexture is mildly heterogeneous. No suspicious thyroid nodules which require follow-up. Posterior and inferior to the left thyroid lobe there is a heterogeneous lesion measuring 1.0 x 1.0 centimeter . IMPRESSION: Thyroid is small, with mildly heterogeneous echogenicity. Findings may indicate thyroiditis. Heterogeneous, echogenic focus posterior and inferior to the left thyroid lobe could represent a parathyroid adenoma. Correlate with appropriate labs . Dictated by: Cj Godwin M.D. on 04/26/2025 at 15:08 Approved by: Cj Godwin M.D. on 04/26/2025 at 15:12
== END ==
LOC: US 09:45
PROVIDERS: Family Provider Family Medicine; PCP Family Medicine; Referring Provider Family Medicine; Visit Provider Family Medicine
DX: E07.89 Other specified disorders of thyroid (principal)
CPT/HCPCS: 76536

== ENCOUNTER → 2025-04-29 11:11 | Outpatient (CLI) | payer MEDICARE, OTHER, SELFPAY ==
[2023-07-15 16:42] VITALS: BMI 22.4
[2025-04-29 15:11] LABS: Vitamin D 25 Hydroxy (D3) 40.4 ng/mL (30.0-100.0)
== END ==
PROVIDERS: Family Provider Family Medicine; PCP Family Medicine; Referring Provider Family Medicine; Visit Provider Family Medicine
DX: E21.5 Disorder of parathyroid gland, unspecified (principal)
CPT/HCPCS: 36415; 82306; 82310; 83970